=== PATIENT | male | born 1955 | race Caucasian/White ===

== ENCOUNTER 2016-09-04 09:07 | Emergency (ER) | payer MEDICARE ==
[2016-09-04] MEDS ORDERED: XYLOCAINE 1% HCL 20 ML MDV IJ ONE (09:25)
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
[2016-09-04] MEDS ORDERED: XYLOCAINE 1% HCL 20 ML MDV ONE (09:33)
[2016-09-04] MEDS ORDERED: Vancomycin 1GM/ Ns 250ML*** 250 ML IV ONE ×2 (09:45→09:50)
[2016-09-04 10:01] LABS: BASOPHIL % 0.1 % (0.0-0.4); Eosinophil % 1.8 % (0.00-5.0); Granulocytes % 68.7 % (36.0-66.0); Lymphocytes % 20.8 % (24.0-44.0); Mean Cell Volume 94.2 fl (78-100); Mean Corpuscular Hemoglobin 31.7 pg (26-32); Mean Platelet Volume 10.1 fl (6-9.5); Monocytes % 8.6 % (0.0-12.0); Platelet Count 260 K/mm3 (150-450); Red Blood Count 4.82 M/mm3 (4.1-5.6); White Blood Count 7.4 K/mm3 (4.0-10.5)
[2016-09-04 10:26] LABS: ANION GAP 14.4 MEQ/L (5-15); BLOOD UREA NITROGEN 16 mg/dL (9-20); CHLORIDE 105 mEq/L (98-107); Carbon Dioxide 24.9 mEq/L (21-32); Glucose 97 MG/DL (70-110); Potassium 3.8 mEq/L (3.5-5.1); SODIUM 141 mEq/L (136-145)
[2016-09-04 12:04] VITALS: BP 141/74; PULSE 69; O2SAT 98
== END 2016-09-04 12:03 | disposition home or self-care (01) ==
LOC: ED 09:07
DX: L02.414 Cutaneous abscess of left upper limb (principal); L03.011 Cellulitis of right finger; R11.2 Nausea with vomiting, unspecified; I10 Essential (primary) hypertension; J44.9 Chronic obstructive pulmonary disease, unspecified
CPT/HCPCS: 36000; 36415; 80048; 85025; 87040; 87070; 87077; 96365; 96366; 99283; J3370

== ENCOUNTER 2017-06-28 00:17 | Emergency (ER) | payer MEDICARE ==
[2017-06-28] MEDS ORDERED: BABY ASPIRIN 81 MG CHEW PO ONE (00:31)
[2017-06-28] MEDS ORDERED: Nitrostat 0.4 MG (ED) SL ONE ×2 (00:31→06:00)
[2017-06-28] MEDS ORDERED: SUBLIMAZE 100 MCG/2 ML IV ONE (00:34)
[2017-06-28] MEDS ORDERED: Phenergan 25 MG INJ IV ONE (00:34)
[2017-06-28] MEDS ORDERED: Nitrostat 0.4 MG Tablet SL PRN (00:39)
--- NOTE | 2017-06-28 00:40 | ERPHSYRPT ---
- History of Present Illness Time Seen by Provider: 06/28/17 00:20 Source: patient Exam Limitations: no limitations Patient Subjective Stated Complaint: cp starting about 1 hour [employer]ITE [employer] [id number] abdominal pain x 3 days with diarrhea. LBM today with loose stools. sweating and SOB Triage Nursing Assessment: alert and awake with c/o CP sob and abdominal pain. staes pain to left shoulder also. has been off pain meds. slightly diaphoretic and SOB on arrival. left side abdomninal pain on palpation. lungs clear bilateral. abdomen slightly soft with + bs x4 quads. denies swelling. Physician History: FOR THE PAST 3 WEEKS PT HAS HAD CONSTANT SHARP LEFT SIDED ABDOMINAL PAIN 10/10 IN SEVERITY; FOR THE PAST 3 DAYS DIARRHEA; FOR THE PAST 30 MINUTES CONSTANT SHARP LOWER MID CHEST PAIN 10/10 IN SEVERITY WITH DIAPHORESIS, SHORTNESS OF AIR AND LEFT SHOULDER PAIN. PT DENIES FEVER, NAUSEA, VOMITING, NUMBNESS, WEAKNESS. Allergies/Adverse Reactions: codeine [Codeine] Allergy (Verified 09/04/16 09:20) Hives pt states hives are quick onset Home Medications: Metoprolol Tartrate 50 mg [Lopressor 50 MG] 50 mg PO BID 09/03/12 [History ] Potassium Chloride 20 Meq [Klor-Con 20 MEQ] 20 meq PO DAILY 09/03/12 [History] Ramipril 10 mg PO BID 09/03/12 [History] Aspirin EC 325 mg [Ecotrin 325 MG] 325 mg PO DAILY 01/03/16 [History] Clopidogrel Bisulfate [Plavix] 75 mg PO DAILY 01/03/16 [History] Fluticasone/Salmeterol [Advair 250-50 Diskus] 1 puff IH BID 01/03/16 [History] Folic Acid/Mv,Iron,Min/Lutein [Certa Plus Tablet] 1 each PO DAILY 01/03/16 [ History] Gabapentin 300 mg PO BID 01/03/16 [History] Hydrocodone Bit/Acetaminophen [Hydrocodon-Acetaminophen 5-325] 1 each PO TID PRN 01/03/16 [History] Pantoprazole Sodium 40 mg PO DAILY 01/03/16 [History] Entecavir 0.5 mg PO AC 09/04/16 [History] Escitalopram Oxalate 10 mg PO DAILY 09/04/16 [History] Nitroglycerin 0.4 mg Tablet [Nitrostat 0.4 MG Tablet] 0.4 mg SL UD [History] Hx Tetanus, Diphtheria Vaccination/Date Given: Yes Hx Influenza Vaccination/Date Given: No Hx Pneumococcal Vaccination/Date Given: No (2014) Immunizations Up to Date: Yes - Review of Systems Constitutional: No Fever, No Weakness Respiratory: Dyspnea Cardiac: Chest Pain Abdominal/Gastrointestinal: Abdominal Pain, Diarrhea, No Nausea, No Vomiting Musculoskeletal: Joint Pain (LEFT SHOULDER PAIN) Neurological: No Sensory Changes All Other Systems: Reviewed and Negative - Past Medical History Pertinent Past Medical History: Yes Neurological History: No Pertinent History ENT History: No Pertinent History Cardiac History: Hypertension, Other Respiratory History: COPD Endocrine Medical History: No Pertinent History Musculoskeletal History: Arthritis, Fractures GI Medical History: Hepatitis History: No Pertinent History Psycho-Social History: Anxiety, Depression Male Reproductive Disorders: No Pertinent History Other Medical History: HAS PACEMAKER ON LEFT CHEST - Past Surgical History Past Surgical History: Yes Neuro Surgical History: No Pertinent History Cardiac: Pacemaker Respiratory: No Pertinent History Gastrointestinal: No Pertinent History Genitourinary: No Pertinent History Musculoskeletal: Joint Replacement Male Surgical History: No Pertinent History Other Surgical History: states pacemaker x 3 - Social History Smoking Status: Former smoker Exposure to second hand smoke: No Alcohol Use: None Drug Use: marijuana, methamphetamines Patient Lives Alone: No Significant Family History: heart disease, hypertension - Nursing Vital Signs Nursing Vital Signs: Initial Vital Signs Pulse Rate 78 06/28/17 00:21 Respiratory Rate 18 06/28/17 00:21 Blood Pressure 178/108 06/28/17 00:21 O2 Sat by Pulse Oximetry 97 06/28/17 00:21 Pain Scale Pain Intensity 0 - Physical Exam General Appearance: alert Eye Exam: PERRL/EOMI Ears, Nose, Throat Exam: pharynx normal, moist mucous membranes Neck Exam: normal inspection Respiratory Exam: lungs clear Cardiovascular Exam: normal heart sounds Gastrointestinal/Abdomen Exam: soft, normal bowel sounds, tenderness (MILD LEFT SIDED ABDOMINAL TENDERNESS) Back Exam: normal range of motion Extremity Exam: normal inspection, No pedal edema Neurologic Exam: alert, cooperative Skin Exam: warm, dry SpO2 Interpretation: normal SpO2: 95 Oxygen Delivery: Room Air - Course Nursing assessment & vital signs reviewed: Yes EKG Interpreted by Me: RATE (75), Sinus Rhythm, Left [place] Deviation, Left Bundle Branch Block Ordered Tests: Active Orders 24 hr Category Date Time Status Lens Blank Gauger STAT Care 06/28/17 00:32 Active Clean Catch Urine Specimen STAT Care 06/28/17 00:31 Active EKG-ER Only STAT Care 06/28/17 00:31 Active EKG-ER Only STAT Care 06/28/17 02:04 Active IV Insertion STAT Care 06/28/17 00:31 Active Oxygen-ED Only NASAL CANNULA 2 lpm Care 06/28/17 00:31 Active Pulse Oximetry (ED) STAT Care 06/28/17 00:31 Active ABDOMEN AND PELVIS W/0 CONTRAS [CT] Stat Exams 06/28/17 00:35 Taken CHEST 2 VIEWS (PA AND LAT) Stat Exams 06/28/17 00:32 Taken AMYLASE Stat Lab 06/28/17 00:45 Completed CBC W DIFF Stat Lab 06/28/17 00:45 Completed CMP Stat Lab 06/28/17 00:45 Completed LIPASE Stat Lab 06/28/17 00:45 Completed MAGNESIUM Stat Lab 06/28/17 00:45 Completed NT PRO BNP Stat Lab 06/28/17 00:45 Completed PROTIME WITH INR Stat Lab 06/28/17 00:45 Completed PTT Stat Lab 06/28/17 00:45 Completed TROPONIN Q3H Lab 06/28/17 00:45 Completed TROPONIN Q3H Lab 06/28/17 03:45 Ordered TROPONIN Q3H Lab 06/28/17 06:45 Ordered TROPONIN Q3H Lab 06/28/17 09:45 Ordered TROPONIN Q3H Lab 06/28/17 12:45 Ordered TROPONIN Stat Lab 06/28/17 02:20 Completed UA W/ MICROSCOPIC Stat Lab 06/28/17 00:45 Completed Medication Summary Generic Name Dose Route Start Last Admin Trade Name Freq PRN Reason Stop Dose Admin Sodium Chloride 1,000 mls @ 125 mls/hr 06/28/17 00:45 06/28/17 00:49 Sodium Chloride 0.9% 1000 Ml IV 07/28/17 00:44 125 mls/hr .Q8H PEPPER Administration Nitroglycerin 0.4 mg 06/28/17 00:39 06/28/17 00:42 Nitrostat 0.4 Mg Tablet SL 07/28/17 00:38 0.4 mg Q5MIN PRN MR X 3 PRN Administration CHEST PAIN Discontinued Medications Generic Name Dose Route Start Last Admin Trade Name Camila PRN Reason Stop Dose Admin Aspirin 324 mg 06/28/17 00:31 06/28/17 00:25 Baby Aspirin 81 Mg Chew PO 06/28/17 00:32 324 mg STAT ONE Administration Fentanyl Citrate 50 mcg 06/28/17 00:34 06/28/17 00:48 Sublimaze 100 Mcg/2 Ml IV 06/28/17 00:35 50 mcg STAT ONE Administration Fentanyl Citrate Confirm 06/28/17 00:45 Sublimaze 100 Mcg/2 Ml Administered 06/28/17 00:46 Dose 100 mcg .ROUTE .STK-MED ONE Nitroglycerin 0.4 mg 06/28/17 00:31 06/28/17 00:29 Nitrostat 0.4 Mg (Ed) SL 06/28/17 00:32 0.4 mg STAT ONE Administration Promethazine HCl 12.5 mg 06/28/17 00:34 06/28/17 00:48 Phenergan 25 Mg Inj IV 06/28/17 00:35 12.5 mg STAT ONE Administration Promethazine HCl Confirm 06/28/17 00:45 Phenergan 25 Mg Inj Administered 06/28/17 00:46 Dose 25 mg .ROUTE .STK-MED ONE Lab/Rad Data: Laboratory Result Diagrams 06/28/17 00:45 06/28/17 00:45 Laboratory Results 06/28/17 06/28/17 06/28/17 Range/Units 02:20 00:45 00:45 WBC (4.0-10.5) K/mm3 RBC (4.1-5.6) M/mm3 Hgb (12.5-18.0) gm/dl Hct (42-50) % MCV (78-100) fl MCH (26-32) pg MCHC (32-36) g/dl RDW (11.5-14.0) % Plt Count (150-450) K/mm3 MPV (6-9.5) fl Gran % (36.0-66.0) % Lymphocytes % (24.0-44.0) % Monocytes % (0.0-12.0) % Eosinophils % (0.00-5.0) % Basophils % (0.0-0.4) % Basophils # (0-0.4) INR (0.8-3.0) APTT (24.1-36.1) SECONDS Sodium (136-145) mEq/L Potassium (3.5-5.1) mEq/L Chloride (98-107) mEq/L Carbon Dioxide (21-32) mEq/L Anion Gap (5-15) MEQ/L BUN (9-20) mg/dL Creatinine (0.55-1.30) mg/dl Estimated GFR ML/MIN Glucose (70-110) MG/DL Calcium (8.5-10.1) mg/dL Magnesium (1.8-2.4) mg/dL Total Bilirubin (0.2-1.0) mg/dL AST (15-37) U/L ALT (12-78) U/L Alkaline Phosphatase (46-116) U/L Troponin I 0.078 H* 0.040 (0.000-0.056) ng/ml NT-Pro-B Natriuret Pep (0-125) pg/ml Serum Total Protein (6.4-8.2) gm/dL Albumin (3.4-5.0) g/dL Amylase (25-115) U/L Lipase (73-393) U/L Ur Collection Type CLEAN CATCH Urine Color YELLOW (YELLOW) Urine Appearance CLEAR (CLEAR) Urine pH 6.5 (5-6) Ur Specific [place] 1.015 (1.005-1.025) Urine Protein TRACE (Negative) Urine Ketones NEGATIVE (NEGATIVE) Urine Blood NEGATIVE (0-5) Scout/ul Urine Nitrite NEGATIVE (NEGATIVE) Urine Bilirubin NEGATIVE (NEGATIVE) Urine Urobilinogen NORMAL (0-1) mg/dL Ur Leukocyte Esterase NEGATIVE (NEGATIVE) Ur Epithelial Cells RARE (FEW) /HPF Urine Culture Reflexed NO (NO) Urine Glucose NEGATIVE (NEGATIVE) mg/dL Specimen Received 06/28/17 0045 06/28/17 06/28/17 06/28/17 Range/Units 00:45 00:45 00:45 WBC 9.4 (4.0-10.5) K/mm3 RBC 4.66 (4.1-5.6) M/mm3 Hgb 15.1 (12.5-18.0) gm/dl Hct 43.8 (42-50) % MCV 94.0 (78-100) fl MCH 32.4 H (26-32) pg MCHC 34.5 (32-36) g/dl RDW 13.2 (11.5-14.0) % Plt Count 261 (150-450) K/mm3 MPV 10.8 H (6-9.5) fl Gran % 47.3 (36.0-66.0) % Lymphocytes % 33.0 (24.0-44.0) % Monocytes % 15.2 H (0.0-12.0) % Eosinophils % 4.2 (0.00-5.0) % Basophils % 0.3 (0.0-0.4) % Basophils # 0.03 (0-0.4) INR 1.05 (0.8-3.0) APTT 33.5 (24.1-36.1) SECONDS Sodium 144 (136-145) mEq/L Potassium 3.6 (3.5-5.1) mEq/L Chloride 106 (98-107) mEq/L Carbon Dioxide 24.5 (21-32) mEq/L Anion Gap 16.7 H (5-15) MEQ/L BUN 16 (9-20) mg/dL Creatinine 0.96 (0.55-1.30) mg/dl Estimated GFR > 60 ML/MIN Glucose 98 (70-110) MG/DL Calcium 8.8 (8.5-10.1) mg/dL Magnesium 1.9 (1.8-2.4) mg/dL Total Bilirubin 0.40 (0.2-1.0) mg/dL AST 35 (15-37) U/L ALT 58 (12-78) U/L Alkaline Phosphatase 92 (46-116) U/L Troponin I (0.000-0.056) ng/ml NT-Pro-B Natriuret Pep 2390 H (0-125) pg/ml Serum Total Protein 8.4 H (6.4-8.2) gm/dL Albumin 4.1 (3.4-5.0) g/dL Amylase 47 (25-115) U/L Lipase 110 (73-393) U/L Ur Collection Type Urine Color (YELLOW) Urine Appearance (CLEAR) Urine pH (5-6) Ur Specific [place] (1.005-1.025) Urine Protein (Negative) Urine Ketones (NEGATIVE) Urine Blood (0-5) Scout/ul Urine Nitrite (NEGATIVE) Urine Bilirubin (NEGATIVE) Urine Urobilinogen (0-1) mg/dL Ur Leukocyte Esterase (NEGATIVE) Ur Epithelial Cells (FEW) /HPF Urine Culture Reflexed (NO) Urine Glucose (NEGATIVE) mg/dL Specimen Received - Progress Discussed with Dr.: Other (SPOKE WITH DR RAMOS(ER DR)([id number]) WHO ACCEPTED PT FOR TRANSFER TO [facility].) - Departure Time of Disposition: 03:25 Departure Disposition: Home Clinical Impression: CHEST PAIN, ELEVATED TROPONIN I, ABDOMINAL PAIN, HTN, COPD, ARTHRITIS, PACEMAKER, HEPATITIS, ANXIETY, DEPRESSION Condition: Stable Critical Care Time: Yes Critical Care Time(excluding separately billable procedures): 30-74 minutes Referrals: RENETTA CAMARGO [Primary Care Provider] -
[2017-06-28] MEDS ORDERED: SUBLIMAZE 100 MCG/2 ML ONE (00:45)
[2017-06-28] MEDS ORDERED: Sodium Chloride 0.9% 1000 ML 1,000 ML IV SCH (00:45)
[2017-06-28] MEDS ORDERED: Phenergan 25 MG INJ ONE (00:45)
[2017-06-28] MEDS ORDERED: Sodium Chloride 0.9% 1000 ML 1,000 ML ONE (00:45)
[2017-06-28 00:55] LABS: BASOPHIL % 0.3 % (0.0-0.4); Eosinophil % 4.2 % (0.00-5.0); Granulocytes % 47.3 % (36.0-66.0); Mean Corpuscular Hemoglobin 32.4 pg (26-32); Mean Platelet Volume 10.8 fl (6-9.5); Monocytes % 15.2 % (0.0-12.0); Platelet Count 261 K/mm3 (150-450); Red Blood Count 4.66 M/mm3 (4.1-5.6); Red Cell Distribution Width 13.2 % (11.5-14.0); White Blood Count 9.4 K/mm3 (4.0-10.5)
[2017-06-28 01:05] LABS: INR 1.05 (0.8-3.0); PROTIME 11.7 SECONDS (8.83-12.87)
[2017-06-28 01:08] LABS: PTT 33.5 SECONDS (24.1-36.1)
[2017-06-28 01:09] LABS: Bilirubin NEGATIVE (NEGATIVE); Blood NEGATIVE Ery/ul (0-5); COMPLETE URINE MICROSCOPIC? YES; Collection Type CLEAN CATCH; Glucose NEGATIVE (NEGATIVE); Leukocyte Esterase NEGATIVE (NEGATIVE)
[2017-06-28 01:10] LABS: ADD URINE CULTURE? NO (NO); Epithelial Cells RARE /HPF (FEW)
[2017-06-28 01:22] LABS: ALBUMIN 4.1 g/dL (3.4-5.0); ALKALINE PHOSPHATASE 92 U/L (46-116); ANION GAP 16.7 MEQ/L (5-15); BLOOD UREA NITROGEN 16 mg/dL (9-20); CHLORIDE 106 mEq/L (98-107); Carbon Dioxide 24.5 mEq/L (21-32); Glucose 98 MG/DL (70-110); LIPASE 110 U/L (73-393); MAGNESIUM 1.9 mg/dL (1.8-2.4); Potassium 3.6 mEq/L (3.5-5.1); SGOT/AST 35 U/L (15-37); SGPT/ALT 58 U/L (12-78); SODIUM 144 mEq/L (136-145); Total Protein 8.4 gm/dL (6.4-8.2)
[2017-06-28] MEDS ORDERED: Heparin 5000 UNITS/0.5 ML (HIGH RISK MED) ONE (03:28)
[2017-06-28] MEDS ORDERED: Heparin 5000 UNITS/0.5 ML (HIGH RISK MED) IV ONE (03:28)
[2017-06-28] MEDS ORDERED: Heparin 25,000 units/D5W 250ML PREMIX 25,000 UNITS/250 ML BAG IV ONE (03:28)
[2017-06-28] MEDS ORDERED: Heparin 25,000 units/D5W 250ML PREMIX 25,000 UNITS/250 ML BAG IV SCH (03:30)
[2017-06-28 04:10] VITALS: BP 110/69; PULSE 60; O2SAT 97
[2017-06-28] MEDS ORDERED: BABY ASPIRIN 81 MG CHEW ONE (06:00)
--- NOTE | 2017-06-28 08:27 | XRAY ---
Indication: Left chest and left upper quadrant pain for 3 weeks. Multiple contiguous axial images obtained through the abdomen and pelvis without contrast as ordered. Comparison: None Lung bases demonstrates a few rare micronodules probably granulomatous in in this demographic. No infiltrate, consolidation, or effusion. Heart is not enlarged. Stomach is distended with food. Noncontrasted stomach and bowel loops appear nonobstructed. Mild diffuse scattered colonic fecal debris throughout and mild sigmoid diverticulosis. Normal appendix. No free fluid/air. Gallbladder partially contracted without gallstones. 1 cm left renal cortical cyst. Remaining liver, gallbladder, pancreas, spleen, adrenal glands, kidneys, ureters, and bladder appear unremarkable for noncontrast exam. Slightly enlarged prostate gland impresses on the base of the bladder. Osseous structures intact with mild degenerative changes throughout the spine. Small fatty bilateral inguinal hernias. Impression: 1. Fecal stasis without obstruction and sigmoid diverticulosis. 2. Incidental left renal cyst, enlarged prostate gland, and fatty bilateral inguinal hernias. 3. No acute abdominal/pelvic abnormalities on this noncontrast exam. Comment: Preliminary interpretation was made by [facility]. No critical discrepancy. CTDI 27.02
--- NOTE | 2017-06-28 08:29 | XRAY ---
Indication: Chest pain and short of breath. Comparison: January 03, 2016. PA/lateral chest remains clear. Heart is not enlarged again with a left-sided AICD. Bony thorax intact. No new/acute findings.
== END 2017-06-28 04:10 | disposition short-term general hospital (02) ==
LOC: ED 00:17
DX: R07.89 Other chest pain (principal); R79.89 Other specified abnormal findings of blood chemistry; R10.9 Unspecified abdominal pain; I10 Essential (primary) hypertension; J44.9 Chronic obstructive pulmonary disease, unspecified; M19.90 Unspecified osteoarthritis, unspecified site; Z95.0 Presence of cardiac pacemaker; K75.9 Inflammatory liver disease, unspecified; F41.9 Anxiety disorder, unspecified; F32.9 Major depressive disorder, single episode, unspecified; Z79.899 Other long term (current) drug therapy
CPT/HCPCS: 36000; 36415; 71020; 74176; 80053; 81000; 82150; 83690; 83735; 83880; 84484; 85025; 85610; 85730; 93005; 93041; 96360; 96361; 96365; 96374; 96375; 99285; J1644; J2550; J3010; A9270-GY

== ENCOUNTER 2017-08-19 05:45 | Emergency (ER) | payer MEDICARE ==
[2017-08-19] MEDS ORDERED: BABY ASPIRIN 81 MG CHEW PO ONE (05:53)
[2017-08-19] MEDS ORDERED: Nitrostat 0.4 MG (ED) SL ONE ×2 (05:53→06:07)
[2017-08-19] MEDS ORDERED: Cardizem IV 50 MG/10 ML IV ONE ×3 (05:53→06:37)
[2017-08-19] MEDS ORDERED: CARDIZEM DRIP 100 MG/100 ML D5W 100 ML IV ONE (05:56)
--- NOTE | 2017-08-19 05:57 | ERPHSYRPT ---
- History of Present Illness Time Seen by Provider: 08/19/17 05:45 Source: patient Exam Limitations: no limitations Patient Subjective Stated Complaint: c/p chest pain began around 30 min ago, vomiting per patient Triage Nursing Assessment: c/o chest pain midsternal Physician History: ABOUT 5 HOURS AGO PT VOMITED X2 WITHOUT BLOOD; ABOUT 20 MINUTES AGO PT DEVELOPED MID CHEST TIGHTNESS, FRONTAL HEADACHE AND A LEFT EARACHE. Allergies/Adverse Reactions: codeine [Codeine] Allergy (Verified 09/04/16 09:20) Hives pt states hives are quick onset Home Medications: Metoprolol Tartrate 50 mg [Lopressor 50 MG] 50 mg PO BID 09/03/12 [History ] Potassium Chloride 20 Meq [Klor-Con 20 MEQ] 20 meq PO DAILY 09/03/12 [History] Ramipril 10 mg PO BID 09/03/12 [History] Aspirin EC 325 mg [Ecotrin 325 MG] 325 mg PO DAILY 01/03/16 [History] Clopidogrel Bisulfate [Plavix] 75 mg PO DAILY 01/03/16 [History] Fluticasone/Salmeterol [Advair 250-50 Diskus] 1 puff IH BID 01/03/16 [History] Folic Acid/Mv,Iron,Min/Lutein [Certa Plus Tablet] 1 each PO DAILY 01/03/16 [ History] Gabapentin 300 mg PO BID 01/03/16 [History] Hydrocodone Bit/Acetaminophen [Hydrocodon-Acetaminophen 5-325] 1 each PO TID PRN 01/03/16 [History] Pantoprazole Sodium 40 mg PO DAILY 01/03/16 [History] Entecavir 0.5 mg PO AC 09/04/16 [History] Escitalopram Oxalate 10 mg PO DAILY 09/04/16 [History] Nitroglycerin 0.4 mg Tablet [Nitrostat 0.4 MG Tablet] 0.4 mg SL UD [History] Hx Tetanus, Diphtheria Vaccination/Date Given: Yes Hx Influenza Vaccination/Date Given: No Hx Pneumococcal Vaccination/Date Given: No (2014) Immunizations Up to Date: Yes - Review of Systems Constitutional: No Fever Ears, Nose, & Throat: Ear Pain (LEFT) Respiratory: No Cough Cardiac: Other (CHEST TIGHTNESS) Abdominal/Gastrointestinal: Vomiting, No Abdominal Pain Neurological: Headache Endocrine: No Excessive Sweating All Other Systems: Reviewed and Negative - Past Medical History Pertinent Past Medical History: Yes Neurological History: No Pertinent History ENT History: No Pertinent History Cardiac History: Hypertension, Other Respiratory History: COPD Endocrine Medical History: No Pertinent History Musculoskeletal History: Arthritis, Fractures GI Medical History: Hepatitis History: No Pertinent History Psycho-Social History: Anxiety, Depression Male Reproductive Disorders: No Pertinent History Other Medical History: HAS PACEMAKER ON LEFT CHEST - Past Surgical History Past Surgical History: Yes Neuro Surgical History: No Pertinent History Cardiac: Pacemaker Respiratory: No Pertinent History Gastrointestinal: No Pertinent History Genitourinary: No Pertinent History Musculoskeletal: Joint Replacement Male Surgical History: No Pertinent History Other Surgical History: states pacemaker x 3 - Social History Smoking Status: Former smoker Exposure to second hand smoke: No Alcohol Use: None Drug Use: none Patient Lives Alone: No Significant Family History: heart disease, hypertension - Nursing Vital Signs Nursing Vital Signs: Initial Vital Signs Temperature 98.0 F 08/19/17 05:47 Pulse Rate 152 H 08/19/17 05:47 Respiratory Rate 20 08/19/17 05:47 Blood Pressure 159/99 08/19/17 05:47 O2 Sat by Pulse Oximetry 95 08/19/17 05:47 Pain Scale Pain Intensity 4 - Physical Exam General Appearance: alert Eye Exam: PERRL/EOMI Ears, Nose, Throat Exam: TMs normal, moist mucous membranes Neck Exam: normal inspection Respiratory Exam: lungs clear Cardiovascular Exam: murmur (2/6 SYSTOLIC MURMUR), tachycardia, irregular Gastrointestinal/Abdomen Exam: soft, normal bowel sounds Back Exam: normal range of motion Extremity Exam: normal inspection Neurologic Exam: alert, cooperative Skin Exam: warm, dry SpO2 Interpretation: normal SpO2: 95 Oxygen Delivery: Room Air - Course Nursing assessment & vital signs reviewed: Yes EKG Interpreted by Me: RATE (149), A-fib, Left [place] Deviation, Non-specific ST Changes - Radiology Exams Chest X-ray Interpretation: Interpreted by me, No Pneumonia Ordered Tests: Active Orders 24 hr Category Date Time Status Vegetable Farmer STAT Care 08/19/17 05:54 Active EKG-ER Only STAT Care 08/19/17 05:53 Active IV Insertion STAT Care 08/19/17 05:53 Active Oxygen-ED Only NASAL CANNULA 2 lpm Care 08/19/17 05:53 Active Pulse Oximetry (ED) STAT Care 08/19/17 05:53 Active CHEST 2 VIEWS (PA AND LAT) Stat Exams 08/19/17 05:54 Taken AMYLASE Stat Lab 08/19/17 06:00 Completed CBC W DIFF Stat Lab 08/19/17 06:00 Completed CMP Stat Lab 08/19/17 06:00 Completed LIPASE Stat Lab 08/19/17 06:00 Completed MAGNESIUM Stat Lab 08/19/17 06:00 Completed NT PRO BNP Stat Lab 08/19/17 06:00 Completed PROTIME WITH INR Stat Lab 08/19/17 06:00 Completed PTT Stat Lab 08/19/17 06:00 Completed TROPONIN Q3H Lab 08/19/17 06:00 Completed TROPONIN Q3H Lab 08/19/17 09:00 Ordered TROPONIN Q3H Lab 08/19/17 12:00 Ordered TROPONIN Q3H Lab 08/19/17 15:00 Ordered TROPONIN Q3H Lab 08/19/17 18:00 Ordered UA W/RFX UR CULTURE Stat Lab 08/19/17 06:15 Ordered Urine Triage Profile Stat Lab 08/19/17 06:15 Ordered Medication Summary Generic Name Dose Route Start Last Admin Trade Name Freq PRN Reason Stop Dose Admin Diltiazem HCl 100 mls @ 5 mls/hr 08/19/17 05:53 08/19/17 06:43 Cardizem Drip 100 Mg/100 Ml D5w IV 09/18/17 05:52 10 mg/hr .Q20H PRN 10 mls/hr HEART RATE/ A-FIB Administration Protocol 5 MG/HR Sodium Chloride 1,000 mls @ 100 mls/hr 08/19/17 06:00 08/19/17 06:07 Sodium Chloride 0.9% 1000 Ml IV 09/18/17 05:59 100 mls/hr .Q10H PEPPER Administration Discontinued Medications Generic Name Dose Route Start Last Admin Trade Name Freq PRN Reason Stop Dose Admin Aspirin 324 mg 08/19/17 05:53 08/19/17 06:07 Baby Aspirin 81 Mg Chew PO 08/19/17 05:54 324 mg STAT ONE Administration Aspirin Confirm 08/19/17 06:06 Baby Aspirin 81 Mg Chew Administered 08/19/17 06:07 Dose 324 mg .ROUTE .STK-MED ONE Diltiazem HCl 10 mg 08/19/17 05:53 08/19/17 06:01 Cardizem Iv 50 Mg/10 Ml IV 08/19/17 05:54 10 mg STAT ONE Administration Diltiazem HCl Confirm 08/19/17 05:59 Cardizem Iv 50 Mg/10 Ml Administered 08/19/17 06:00 Dose 50 mg IV .STK-MED ONE Diltiazem HCl 20 mg 08/19/17 06:37 08/19/17 06:42 Cardizem Iv 50 Mg/10 Ml IV 08/19/17 06:38 20 mg STAT ONE Administration Nitroglycerin 0.4 mg 08/19/17 05:53 08/19/17 06:10 Nitrostat 0.4 Mg (Ed) SL 08/19/17 05:54 0.4 mg STAT ONE Administration Nitroglycerin Confirm 08/19/17 06:07 Nitrostat 0.4 Mg (Ed) Administered 08/19/17 06:08 Dose 0.4 mg SL .STK-MED ONE Lab/Rad Data: Laboratory Result Diagrams 08/19/17 06:00 08/19/17 06:00 Laboratory Results 08/19/17 08/19/17 08/19/17 Range/Units 06:00 06:00 06:00 WBC (4.0-10.5) K/mm3 RBC (4.1-5.6) M/mm3 Hgb (12.5-18.0) gm/dl Hct (42-50) % MCV (78-100) fl MCH (26-32) pg MCHC (32-36) g/dl RDW (11.5-14.0) % Plt Count (150-450) K/mm3 MPV (6-9.5) fl Gran % (36.0-66.0) % Lymphocytes % (24.0-44.0) % Monocytes % (0.0-12.0) % Eosinophils % (0.00-5.0) % Basophils % (0.0-0.4) % Basophils # (0-0.4) INR 1.08 (0.8-3.0) APTT 35.1 (24.1-36.1) SECONDS Sodium 143 (136-145) mEq/L Potassium 3.5 (3.5-5.1) mEq/L Chloride 105 (98-107) mEq/L Carbon Dioxide 27.5 (21-32) mEq/L Anion Gap 14.0 (5-15) MEQ/L BUN 19 (9-20) mg/dL Creatinine 0.97 (0.55-1.30) mg/dl Estimated GFR > 60 ML/MIN Glucose 130 H (70-110) MG/DL Calcium 8.9 (8.5-10.1) mg/dL Magnesium 1.9 (1.8-2.4) mg/dL Total Bilirubin 0.70 (0.2-1.0) mg/dL AST 42 H (15-37) U/L ALT 55 (12-78) U/L Alkaline Phosphatase 86 (46-116) U/L Troponin I 0.052 (0.000-0.056) ng/ml NT-Pro-B Natriuret Pep 1390 H (0-125) pg/ml Serum Total Protein 7.9 (6.4-8.2) gm/dL Albumin 3.8 (3.4-5.0) g/dL Amylase 43 (25-115) U/L Lipase 109 (73-393) U/L 08/19/17 Range/Units 06:00 WBC 6.8 (4.0-10.5) K/mm3 RBC 4.38 (4.1-5.6) M/mm3 Hgb 14.0 (12.5-18.0) gm/dl Hct 41.8 L (42-50) % MCV 95.4 (78-100) fl MCH 32.0 (26-32) pg MCHC 33.5 (32-36) g/dl RDW 13.2 (11.5-14.0) % Plt Count 217 (150-450) K/mm3 MPV 10.7 H (6-9.5) fl Gran % 44.5 (36.0-66.0) % Lymphocytes % 33.8 (24.0-44.0) % Monocytes % 15.2 H (0.0-12.0) % Eosinophils % 6.2 H (0.00-5.0) % Basophils % 0.3 (0.0-0.4) % Basophils # 0.02 (0-0.4) INR (0.8-3.0) APTT (24.1-36.1) SECONDS Sodium (136-145) mEq/L Potassium (3.5-5.1) mEq/L Chloride (98-107) mEq/L Carbon Dioxide (21-32) mEq/L Anion Gap (5-15) MEQ/L BUN (9-20) mg/dL Creatinine (0.55-1.30) mg/dl Estimated GFR ML/MIN Glucose (70-110) MG/DL Calcium (8.5-10.1) mg/dL Magnesium (1.8-2.4) mg/dL Total Bilirubin (0.2-1.0) mg/dL AST (15-37) U/L ALT (12-78) U/L Alkaline Phosphatase (46-116) U/L Troponin I (0.000-0.056) ng/ml NT-Pro-B Natriuret Pep (0-125) pg/ml Serum Total Protein (6.4-8.2) gm/dL Albumin (3.4-5.0) g/dL Amylase (25-115) U/L Lipase (73-393) U/L - Progress Discussed with : Other (SPOKE WITH DR STEWART([id number]) WHO ACCEPTED PT FOR TRANSFER TO [facility].) - Departure Time of Disposition: 07:19 Departure Disposition: Transfer ([facility]) Clinical Impression: A. FIB WITH RVR, ELEVATING TROPONIN I, COPD, HTN, ARTHRITIS, HEPATITIS, ANXIETY , DEPRESSION Condition: Stable Critical Care Time: No Referrals: RENETTA CAMARGO [Primary Care Provider] -
[2017-08-19] MEDS ORDERED: Sodium Chloride 0.9% 1000 ML 1,000 ML IV SCH (06:00)
[2017-08-19] MEDS: CARDIZEM DRIP 100 MG/100 ML D5W 100 ML IV PRN ×2 (06:01→06:43)
[2017-08-19] MEDS ORDERED: BABY ASPIRIN 81 MG CHEW ONE (06:06)
[2017-08-19] MEDS ORDERED: Sodium Chloride 0.9% 1000 ML 1,000 ML ONE (06:07)
[2017-08-19 06:13] LABS: BASOPHIL % 0.3 % (0.0-0.4); Basophil (Absolute #) 0.02 (0-0.4); Eosinophil % 6.2 % (0.00-5.0); Eosinophil (Absolute #) 0.42 (0-0.5); Granulocyte Absolute (ANC) 3.02 (1.4-6.9); Granulocytes % 44.5 % (36.0-66.0); Hematocrit 41.8 % (42-50); Lymphocyte (Absolute #) 2.29 (1.0-4.6); Lymphocytes % 33.8 % (24.0-44.0); Mean Cell Volume 95.4 fl (78-100); Mean Corpuscular Hgb Concent. 33.5 g/dl (32-36); Mean Platelet Volume 10.7 fl (6-9.5); Monocyte (Absolute #) 1.03 (0.0-1.3); Monocytes % 15.2 % (0.0-12.0); Platelet Count 217 K/mm3 (150-450); Red Blood Count 4.38 M/mm3 (4.1-5.6); Red Cell Distribution Width 13.2 % (11.5-14.0); White Blood Count 6.8 K/mm3 (4.0-10.5)
[2017-08-19 06:26] LABS: INR 1.08 (0.8-3.0)
[2017-08-19 06:29] LABS: PTT 35.1 SECONDS (24.1-36.1)
[2017-08-19 06:42] LABS: ALBUMIN 3.8 g/dL (3.4-5.0); ALKALINE PHOSPHATASE 86 U/L (46-116); AMYLASE 43 U/L (25-115); BLOOD UREA NITROGEN 19 mg/dL (9-20); CHLORIDE 105 mEq/L (98-107); Calcium 8.9 mg/dL (8.5-10.1); Carbon Dioxide 27.5 mEq/L (21-32); Creatinine 1 0.97 mg/dl (0.55-1.30); EST GLOMERULAR FILTRATION RATE > 60 ML/MIN; Glucose 130 MG/DL (70-110); LIPASE 109 U/L (73-393); MAGNESIUM 1.9 mg/dL (1.8-2.4); NT PRO BNP 1390 pg/ml (0-125); Potassium 3.5 mEq/L (3.5-5.1); SGOT/AST 42 U/L (15-37); SGPT/ALT 55 U/L (12-78); SODIUM 143 mEq/L (136-145); Total Protein 7.9 gm/dL (6.4-8.2)
[2017-08-19 07:29] LABS: Appearance CLEAR (CLEAR); Bilirubin NEGATIVE (NEGATIVE); Blood NEGATIVE Ery/ul (0-5); Glucose NEGATIVE (NEGATIVE); Ketones NEGATIVE (NEGATIVE); Leukocyte Esterase NEGATIVE (NEGATIVE); Nitrite NEGATIVE (NEGATIVE); Protein,Urine Dip NEGATIVE (Negative); Specific Gravity 1.015 (1.005-1.025); Urobilinogen NORMAL mg/dL (0-1)
[2017-08-19 07:37] VITALS: O2SAT 98
[2017-08-19 07:55] LABS: Amphetamine,Urine NEG. (NEGATIVE); Barbiturate,Urine NEG. (NEGATIVE); Benzodiazepine,Urine NEG. (NEGATIVE); Cocaine,Urine NEG. (NEGATIVE); Methadone,Urine NEG. (NEGATIVE); Opiate,Urine NEG. (NEGATIVE); PCP,Urine NEG. (NEGATIVE); THC,Urine NEG. (NEGATIVE)
[2017-08-19 08:52] VITALS: BP 132/65; PULSE 118
--- NOTE | 2017-08-19 09:42 | XRAY ---
Indication: Chest tightness. Comparison: June 28, 2017. PA/lateral chest again hyperinflated and clear. Heart is not enlarged with stable left-sided AICD. No new/acute findings.
== END 2017-08-19 09:06 | disposition short-term general hospital (02) ==
LOC: ED 05:45
DX: I48.91 Unspecified atrial fibrillation (principal); R77.8 Other specified abnormalities of plasma proteins; R51 Headache; J44.9 Chronic obstructive pulmonary disease, unspecified; H92.02 Otalgia, left ear; I10 Essential (primary) hypertension; M19.90 Unspecified osteoarthritis, unspecified site; K75.9 Inflammatory liver disease, unspecified; F41.8 Other specified anxiety disorders; Z79.899 Other long term (current) drug therapy
CPT/HCPCS: 36000; 36415; 71046; 80053; 80307; 81002; 82150; 83690; 83735; 83880; 84484; 85025; 85610; 85730; 93005; 93041; 96360; 96361; 96365; 96366; 96374; 96376; 99285; A9270-GY

== ENCOUNTER 2017-08-24 11:50 | Inpatient (IN) | payer MEDICARE ==
[2017-08-24] MEDS ORDERED: Cardizem IV 50 MG/10 ML IV ONE ×4 (11:59→12:56)
[2017-08-24] MEDS ORDERED: Adenocard IV 6 MG/2 ML IV ONE ×3 (12:00→12:09)
[2017-08-24] MEDS ORDERED: Sodium Chloride 0.9% 1000 ML 1,000 ML IV STA (12:09)
[2017-08-24] MEDS ORDERED: CARDIZEM DRIP 100 MG/100 ML D5W 100 ML IV PRN (12:09)
[2017-08-24] MEDS ORDERED: SODIUM CHLORIDE 0.9% IV SCH (12:15)
[2017-08-24] MEDS ORDERED: CARDIZEM IV SCH (12:15)
[2017-08-24 12:22] LABS: BASOPHIL % 0.1 % (0.0-0.4); Basophil (Absolute #) 0.01 (0-0.4); Eosinophil % 4.3 % (0.00-5.0); Eosinophil (Absolute #) 0.45 (0-0.5); Granulocyte Absolute (ANC) 6.34 (1.4-6.9); Granulocytes % 61.3 % (36.0-66.0); Hematocrit 41.6 % (42-50); Hemoglobin 14.1 gm/dl (12.5-18.0); Lymphocyte (Absolute #) 2.22 (1.0-4.6); Lymphocytes % 21.4 % (24.0-44.0); Mean Cell Volume 94.8 fl (78-100); Mean Corpuscular Hemoglobin 32.1 pg (26-32); Mean Corpuscular Hgb Concent. 33.9 g/dl (32-36); Mean Platelet Volume 10.9 fl (6-9.5); Monocyte (Absolute #) 1.34 (0.0-1.3); Monocytes % 12.9 % (0.0-12.0); Platelet Count 225 K/mm3 (150-450); Red Blood Count 4.39 M/mm3 (4.1-5.6); Red Cell Distribution Width 12.8 % (11.5-14.0); White Blood Count 10.4 K/mm3 (4.0-10.5)
[2017-08-24] MEDS ORDERED: TRANDATE 20 MG/5 ML SYRINGE IV ONE (12:27)
[2017-08-24 12:33] LABS: INR 1.36 (0.8-3.0)
[2017-08-24 12:34] LABS: D-DIMER QUANTITATION 492.66 ng/mL (0-500)
--- NOTE | 2017-08-24 12:38 | ERPHSYRPT ---
- History of Present Illness Time Seen by Provider: 08/24/17 12:00 Source: patient Exam Limitations: no limitations Patient Subjective Stated Complaint: PT ARRIVED PER PRIVATE VEHICLE STATES HE BEGAN HAVING HEART PALPITATIONS AROUND 1130 THIS MORNING. STATES HE HAS CHEST PRESSURE. Triage Nursing Assessment: PT PINK, WARM SKIN MOIST. RADIAL PUSES NORMAL, IRREGULAR. PT BREATHING WNL. 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 Patient came to the emergency room. Patient came to the emergency room at around 11:50 AM and his symptoms started around 11 :15 AM. In the emergency room. Patient is alert, awake, oriented to time, place and person answer all the questions complaining of some pain on the side of the neck and palpitation. Patient was immediately given Adenocard 6 mg followed by 12 mg, which did not bring his heart rate down so 10 mg of Cardizem IV steroid was given an which did bring patient heart rate down to around 120-130 which was around 180 - 190 before. Patient chest pain did improve. Timing/Duration: today Activities at Onset: none Quality: sharpness, stabbing Location: substernal Chest Pain Radiation: jaw Severity of Pain-Max: moderate Severity of Pain-Current: moderate Modifying Factors: Improves With: nothing Nitro Today/Relief: no nitro taken today Aspirin Treatment Today: 81 mg x 1 Associated Symptoms: chest pain, other (palpitations) Prior Chest Pain/Cardiac Workup: recently seen/treated Allergies/Adverse Reactions: codeine [Codeine] Allergy (Verified 08/24/17 12:11) Hives pt states hives are quick onset Home Medications: Clopidogrel Bisulfate [Clopidogrel] 75 mg PO DAILY 08/24/17 [History] Gabapentin [Gabapentin] 300 mg PO TID 08/24/17 [History] Hydrocodone Bit/Acetaminophen [Hydrocodon-Acetaminophen 5-325] 1 each PO Q4- 6HPRN PRN 08/24/17 [History] Ipratropium/Albuterol Sulfate [Combivent Inhaler] 14.7 gm IH BIDPRN PRN [History] Metoprolol Succinate 50 mg [Toprol Xl 50 MG] 50 mg PO DAILY 08/24/17 [ History] Nitroglycerin 0.4 mg (Ed) [Nitrostat 0.4 MG (ED)] 0.4 mg SL UD 08/24/17 [ History] Pantoprazole Sodium 40 mg PO DAILY 08/24/17 [History] Potassium Chloride 20 Meq [Klor-Con 20 MEQ] 20 meq PO DAILY 08/24/17 [History] Pravastatin Sodium [Pravachol] 20 mg PO DAILY 08/24/17 [History] Ramipril [Altace] 2.5 mg PO DAILY 08/24/17 [History] Rivaroxaban [Xarelto] 20 mg PO DAILY 08/24/17 [History] Hx Tetanus, Diphtheria Vaccination/Date Given: Yes (UNKNOWN) Hx Influenza Vaccination/Date Given: Yes Hx Pneumococcal Vaccination/Date Given: Yes Immunizations Up to Date: Yes - Review of Systems Constitutional: No Fever, No Chills Eyes: No Symptoms Ears, Nose, & Throat: No Symptoms Respiratory: Cough, No Dyspnea Cardiac: Chest Pain, Palpitations, No Edema, No Syncope Abdominal/Gastrointestinal: No Abdominal Pain, No Nausea, No Vomiting, No Diarrhea Genitourinary Symptoms: No Dysuria Musculoskeletal: No Back Pain, No Neck Pain Skin: No Rash Neurological: No Dizziness, No Focal Weakness, No Sensory Changes Psychological: No Symptoms Endocrine: No Symptoms All Other Systems: Reviewed and Negative - Past Medical History Pertinent Past Medical History: Yes Neurological History: No Pertinent History ENT History: No Pertinent History Cardiac History: Arrhythmia, Hypertension, Other Respiratory History: COPD Endocrine Medical History: No Pertinent History Musculoskeletal History: Arthritis, Fractures GI Medical History: Hepatitis History: No Pertinent History Psycho-Social History: Anxiety, Depression Male Reproductive Disorders: No Pertinent History Other Medical History: HAS PACEMAKER ON LEFT CHEST - Past Surgical History Past Surgical History: Yes Neuro Surgical History: No Pertinent History Cardiac: Pacemaker Respiratory: No Pertinent History Gastrointestinal: No Pertinent History Genitourinary: No Pertinent History Musculoskeletal: Joint Replacement Male Surgical History: No Pertinent History Other Surgical History: states pacemaker x 3 - Social History Smoking Status: Never smoker Exposure to second hand smoke: No Alcohol Use: None Drug Use: none Patient Lives Alone: No Significant Family History: heart disease, hypertension - Nursing Vital Signs Nursing Vital Signs: Initial Vital Signs Temperature 97.9 F 08/24/17 11:51 Pulse Rate 170 H 08/24/17 11:51 Respiratory Rate 24 08/24/17 11:51 Blood Pressure 163/114 08/24/17 11:51 O2 Sat by Pulse Oximetry 96 08/24/17 11:51 Pain Scale Pain Intensity 6 - Physical Exam General Appearance: no apparent distress, alert Eye Exam: PERRL/EOMI, eyes nml inspection Ears, Nose, Throat Exam: normal ENT inspection, moist mucous membranes Neck Exam: normal inspection, non-tender, supple Respiratory Exam: lungs clear, diminished breath sounds, No respiratory distress Cardiovascular Exam: tachycardia, irregular, capillary refill <2 sec, No edema Gastrointestinal/Abdomen Exam: soft, No tenderness, No mass Back Exam: normal inspection, No CVA tenderness, No vertebral tenderness Extremity Exam: normal inspection, normal range of motion Neurologic Exam: alert, oriented x 3, cooperative, normal mood/affect, nml cerebellar function, sensation nml, No motor deficits Skin Exam: normal color, warm, dry Lymphatic Exam: No adenopathy SpO2: 96 Oxygen Delivery: Room Air - Course Nursing assessment & vital signs reviewed: Yes EKG Interpreted by Me: A-fib (with RVR) Rhythm Strip: Atrial Fibrillation - Radiology Exams Chest X-ray Interpretation: Reviewed by me (cardiomegaly, CHF changes) Ordered Tests: Active Orders 24 hr Category Date Time Status Gill Tender STAT Care 08/24/17 12:09 Active EKG-ER Only STAT Care 08/24/17 12:09 Active IV Insertion STAT Care 08/24/17 12:09 Active IV Insertion-2nd Peripheral STAT Care 08/24/17 12:23 Active Oxygen-ED Only NASAL CANNULA 3 lpm Care 08/24/17 12:09 Active CHEST 1 VIEW (PORTABLE) Stat Exams 08/24/17 12:09 Taken CBC W DIFF Stat Lab 08/24/17 12:00 Completed CMP Stat Lab 08/24/17 12:00 Completed D-DIMER QUANTITATION Stat Lab 08/24/17 12:00 Completed NT PRO BNP Stat Lab 08/24/17 12:00 Completed PROTIME WITH INR Stat Lab 08/24/17 12:00 Completed TROPONIN Q3H Lab 08/24/17 12:00 Completed TROPONIN Q3H Lab 08/24/17 15:15 Ordered TROPONIN Q3H Lab 08/24/17 18:15 Ordered TROPONIN Q3H Lab 08/24/17 21:15 Ordered TROPONIN Q3H Lab 08/25/17 00:15 Ordered Medication Summary Generic Name Dose Route Start Last Admin Trade Name Freq PRN Reason Stop Dose Admin Diltiazem HCl 100 mg/ Sodium 100 mls @ 10 mls/hr 08/24/17 12:15 08/24/17 12: 26 Chloride IV 08/24/17 22:16 Not Given .Q10H PEPPER Diltiazem HCl 100 mls @ 10 mls/hr 08/24/17 12:09 08/24/17 12:10 Cardizem Drip 100 Mg/100 Ml D5w IV 09/23/17 12:08 10 mg/hr .Q10H PRN 10 mls/hr HEART RATE/ A-FIB Administration Protocol 10 MG/HR Discontinued Medications Generic Name Dose Route Start Last Admin Trade Name Freq PRN Reason Stop Dose Admin Adenosine Confirm 08/24/17 12:00 Adenocard Iv 6 Mg/2 Ml Administered 08/24/17 12:01 Dose 12 mg IV .STK-MED ONE Adenosine 6 mg 08/24/17 12:09 08/24/17 11:54 Adenocard Iv 6 Mg/2 Ml IV 08/24/17 12:10 6 mg STAT ONE Administration Adenosine 12 mg 08/24/17 12:09 08/24/17 12:01 Adenocard Iv 6 Mg/2 Ml IV 08/24/17 12:10 12 mg STAT ONE Administration Diltiazem HCl Confirm 08/24/17 11:59 Cardizem Iv 50 Mg/10 Ml Administered 08/24/17 12:00 Dose 50 mg IV .STK-MED ONE Diltiazem HCl 10 mg 08/24/17 12:09 08/24/17 12:05 Cardizem Iv 50 Mg/10 Ml IV 08/24/17 12:10 10 mg STAT ONE Administration Diltiazem HCl Confirm 08/24/17 12:48 Cardizem Iv 50 Mg/10 Ml Administered 08/24/17 12:49 Dose 50 mg IV .STK-MED ONE Diltiazem HCl 10 mg 08/24/17 12:56 08/24/17 12:57 Cardizem Iv 50 Mg/10 Ml IV 08/24/17 12:57 10 mg STAT ONE Administration Sodium Chloride 1,000 mls @ 999 mls/hr 08/24/17 12:09 08/24/17 11:55 Sodium Chloride 0.9% 1000 Ml IV 08/24/17 13:09 999 mls/hr .Q1H1M STA Administration Labetalol HCl 5 mg 08/24/17 12:27 08/24/17 12:10 Trandate 20 Mg/5 Ml Syringe IV 08/24/17 12:28 5 mg STAT ONE Administration Lab/Rad Data: Laboratory Result Diagrams 08/24/17 12:00 08/24/17 12:00 Laboratory Results 08/24/17 08/24/17 08/24/17 Range/Units 12:00 12:00 12:00 WBC (4.0-10.5) K/mm3 RBC (4.1-5.6) M/mm3 Hgb (12.5-18.0) gm/dl Hct (42-50) % MCV (78-100) fl MCH (26-32) pg MCHC (32-36) g/dl RDW (11.5-14.0) % Plt Count (150-450) K/mm3 MPV (6-9.5) fl Gran % (36.0-66.0) % Lymphocytes % (24.0-44.0) % Monocytes % (0.0-12.0) % Eosinophils % (0.00-5.0) % Basophils % (0.0-0.4) % Basophils # (0-0.4) INR 1.36 (0.8-3.0) D-Dimer 492.66 (0-500) ng/mL Sodium 141 (136-145) mEq/L Potassium 4.2 (3.5-5.1) mEq/L Chloride 105 (98-107) mEq/L Carbon Dioxide 24.7 (21-32) mEq/L Anion Gap 15.1 H (5-15) MEQ/L BUN 15 (9-20) mg/dL Creatinine 0.82 (0.55-1.30) mg/dl Estimated GFR > 60 ML/MIN Glucose 125 H (70-110) MG/DL Calcium 9.0 (8.5-10.1) mg/dL Total Bilirubin 0.60 (0.2-1.0) mg/dL AST 34 (15-37) U/L ALT 39 (12-78) U/L Alkaline Phosphatase 83 (46-116) U/L Troponin I 0.035 (0.000-0.056) ng/ml NT-Pro-B Natriuret Pep 1171 H (0-125) pg/ml Serum Total Protein 8.1 (6.4-8.2) gm/dL Albumin 3.6 (3.4-5.0) g/dL 08/24/17 Range/Units 12:00 WBC 10.4 (4.0-10.5) K/mm3 RBC 4.39 (4.1-5.6) M/mm3 Hgb 14.1 (12.5-18.0) gm/dl Hct 41.6 L (42-50) % MCV 94.8 (78-100) fl MCH 32.1 H (26-32) pg MCHC 33.9 (32-36) g/dl RDW 12.8 (11.5-14.0) % Plt Count 225 (150-450) K/mm3 MPV 10.9 H (6-9.5) fl Gran % 61.3 (36.0-66.0) % Lymphocytes % 21.4 L (24.0-44.0) % Monocytes % 12.9 H (0.0-12.0) % Eosinophils % 4.3 (0.00-5.0) % Basophils % 0.1 (0.0-0.4) % Basophils # 0.01 (0-0.4) INR (0.8-3.0) D-Dimer (0-500) ng/mL Sodium (136-145) mEq/L Potassium (3.5-5.1) mEq/L Chloride (98-107) mEq/L Carbon Dioxide (21-32) mEq/L Anion Gap (5-15) MEQ/L BUN (9-20) mg/dL Creatinine (0.55-1.30) mg/dl Estimated GFR ML/MIN Glucose (70-110) MG/DL Calcium (8.5-10.1) mg/dL Total Bilirubin (0.2-1.0) mg/dL AST (15-37) U/L ALT (12-78) U/L Alkaline Phosphatase (46-116) U/L Troponin I (0.000-0.056) ng/ml NT-Pro-B Natriuret Pep (0-125) pg/ml Serum Total Protein (6.4-8.2) gm/dL Albumin (3.4-5.0) g/dL - Progress Progress: unchanged Air Movement: good Blood Culture(s) Obtained: No Antibiotics given: No Discussed with DrRosalino: Maldonado Samuel Will see patient in: hospital (full admit) Counseled pt/family regarding: lab results, diagnosis, need for follow-up, rad results - Departure Time of Disposition: 13:21 Departure Disposition: In-patient Admission Clinical Impression: Chest pain not due to acute coronary syndrome, Atrial fibrillation with RVR Condition: Fair Critical Care Time: Yes Critical Care Time(excluding separately billable procedures): 30-74 minutes Referrals: RENETTA CAMARGO [Primary Care Provider] - Instructions: Palpitations (DC)
[2017-08-24 12:39] LABS: ALBUMIN 3.6 g/dL (3.4-5.0); ALKALINE PHOSPHATASE 83 U/L (46-116); ANION GAP 15.1 MEQ/L (5-15); BLOOD UREA NITROGEN 15 mg/dL (9-20); CHLORIDE 105 mEq/L (98-107); Carbon Dioxide 24.7 mEq/L (21-32); Creatinine 1 0.82 mg/dl (0.55-1.30); EST GLOMERULAR FILTRATION RATE > 60 ML/MIN; Glucose 125 MG/DL (70-110); NT PRO BNP 1171 pg/ml (0-125); Potassium 4.2 mEq/L (3.5-5.1); SGOT/AST 34 U/L (15-37); SGPT/ALT 39 U/L (12-78); SODIUM 141 mEq/L (136-145); Total Protein 8.1 gm/dL (6.4-8.2)
[2017-08-24] MEDS ORDERED: Zofran 4 MG/2 ML VIAL IV PRN (13:59)
[2017-08-24] MEDS ORDERED: TYLENOL 325 MG PO PRN (13:59)
[2017-08-24] MEDS ORDERED: MILK OF MAGNESIA 30 ML PO PRN (13:59)
[2017-08-24] MEDS ORDERED: MAALOX ES 30 ML UNIT DOSE PO PRN (13:59)
[2017-08-24] MEDS ORDERED: Senokot-S Tablet PO PRN (13:59)
[2017-08-24] MEDS ORDERED: NON-FORMULARY ITEM (Ipratropium/Albuterol Sulfate [Combivent Inhaler] 14.7 GM) IH PRN (14:43)
[2017-08-24] MEDS ORDERED: Nitrostat 0.4 MG (ED) SL PRN (14:43)
[2017-08-24] MEDS ORDERED: DUONEB 0.5-3 MG/3 ml Neb IH PRN (14:54)
[2017-08-24] MEDS: NEURONTIN 300 MG PO SCH ×2 (15:11→21:06)
--- NOTE | 2017-08-24 19:38 | PCM.HP ---
History of Present Illness - Chief Complaint Chief Complaint: afib Date: 08/24/17 History of Present Illness: is a 62 year old male patient of Dr. Adams and Dr. Okeefe. He was at home were he has frozen pipes and this am began having a headache and chest pain and racing heart and thus presented to ED. He was found to have afib with rvr and given adenosine at first with no change then cardizem bolus followed by gtt and converted to sinus rhythm on arrival to the ICU. His symptoms resolved with conversion to sinus rhythm and currently denies any chest pain or shortness of breath. He denies drinking any caffeine or energy drinks. He denies any cold medications or decongestants other then cough drops and denies any illicit drugs since he is on probation currently with hx of methamphetamine possesion. According to the Emergency physician Dr. Winters initial efforts to transfer to the care of his lining marker in [place] was unsuccessful as they did not have beds available in the [facility]. - Review of Systems Constitutional: No Fever, No Chills Eyes: No Symptoms Ears, Nose, & Throat: No Symptoms Respiratory: No Cough, No Short Of Breath Cardiac: No Chest Pain, No Edema, No Syncope Abdominal/Gastrointestinal: No Abdominal Pain, No Nausea, No Vomiting, No Diarrhea Genitourinary Symptoms: No Dysuria Musculoskeletal: No Back Pain, No Neck Pain Skin: No Rash Neurological: No Dizziness, No Focal Weakness, No Sensory Changes Psychological: No Symptoms Endocrine: No Symptoms Hematologic/Lymphatic: No Symptoms Immunological/Allergic: No Symptoms Medications & Allergies Home Medications: Home Medication List Clopidogrel Bisulfate [Clopidogrel] 75 mg PO DAILY 08/24/17 [History Confirmed 08/24/17] Escitalopram Oxalate 10 mg [Lexapro 10 MG] 10 mg PO DAILY 08/24/17 [History Confirmed 08/24/17] Gabapentin [Gabapentin] 300 mg PO TID 08/24/17 [History Confirmed 08/24/17] Hydrocodone Bit/Acetaminophen [Hydrocodon-Acetaminophen 5-325] 1 each PO Q4- 6HPRN PRN 08/24/17 [History Confirmed 08/24/17] Ipratropium/Albuterol Sulfate [Combivent Inhaler] 14.7 gm IH BIDPRN PRN [History Confirmed 08/24/17] Metoprolol Succinate 50 mg [Toprol Xl 50 MG] 50 mg PO BID 08/24/17 [ History Confirmed 08/24/17] Nitroglycerin 0.4 mg (Ed) [Nitrostat 0.4 MG (ED)] 0.4 mg SL UD PRN [History Confirmed 08/24/17] Pantoprazole Sodium 40 mg PO DAILY 08/24/17 [History Confirmed 08/24/17] Potassium Chloride 20 Meq [Klor-Con 20 MEQ] 20 meq PO DAILY 08/24/17 [History Confirmed 08/24/17] Pravastatin Sodium [Pravachol] 20 mg PO DAILY 08/24/17 [History Confirmed ] Ramipril [Altace] 10 mg PO BID 08/24/17 [History Confirmed 08/24/17] Rivaroxaban [Xarelto] 20 mg PO DAILY 08/24/17 [History Confirmed 08/24/17] Allergies/Adverse Reactions: Allergies Allergy/AdvReac Type Severity Reaction Status Date / Time codeine [Codeine] Allergy Hives Verified 08/24/17 12:11 - Past Medical History Past Medical History: Yes Neurological History: No Pertinent History ENT History: No Pertinent History Cardiac History: Arrhythmia, Hypertension, Other Respiratory History: COPD Endocrine Medical History: No Pertinent History Musculoskelatal History: Arthritis, Fractures GI Medical History: Hepatitis History: No Pertinent History Pyscho-Social History: Anxiety, Depression Male Reproductive Disorders: No Pertinent History Comment: HAS Defibrillator ON LEFT CHEST due to hypertrophic cardiomyopathy - Past Surgical History Past Surgical History: Yes Neuro Surgical History: No Pertinent History Cardiac History: Pacemaker Respiratory Surgery: No Pertinent History GI Surgical History: No Pertinent History Genitourinary Surgical Hx: No Pertinent History Musculskeletal Surgical Hx: Joint Replacement Male Surgical History: No Pertinent History Other Surgical History: states pacemaker x 3 - Social History Smoking Status: Never smoker Exposure to second hand smoke: No Alcohol: None Drug Use: none Significant Family History: heart disease, hypertension - Physical Exam Vital Signs: Vital Signs - 24 hr Temp Pulse Pulse Resp BP BP Pulse Ox 08/24/17 16:13 56 L 18 97 08/24/17 16:00 49 L 96 08/24/17 15:00 97.9 F 52 L 18 111/67 97 08/24/17 14:02 97.9 F 56 L 18 110/61 96 08/24/17 14:00 98 F 56 L 18 98/57 96 08/24/17 13:37 114 H 18 149/101 08/24/17 13:21 96 08/24/17 13:05 105 H 16 148/101 96 08/24/17 12:42 136 H 20 126/68 96 08/24/17 12:10 156 H 18 158/104 08/24/17 11:55 178 H 08/24/17 11:51 97.9 F 170 H 24 163/114 96 Oxygen-Last 24 hours O2 Percentage 2 Liters = 28% O2 Percentage 2 Liters = 28% O2 Percentage 3 Liters = 32% General Appearance: no apparent distress, alert Neurologic Exam: alert, oriented x 3, cooperative, normal mood/affect, nml cerebellar function, nml station & gait, sensation nml, No motor deficits Eye Exam: PERRL/EOMI, eyes nml inspection Ears, Nose, Throat Exam: normal ENT inspection, TMs normal, pharynx normal, moist mucous membranes Neck Exam: normal inspection, non-tender, supple, full range of motion Respiratory Exam: normal breath sounds, lungs clear, No respiratory distress Cardiovascular Exam: normal peripheral pulses, murmur (2/6 systolic), bradycardia Gastrointestinal/Abdomen Exam: soft, normal bowel sounds, No tenderness, No mass Back Exam: normal inspection, normal range of motion, No CVA tenderness, No vertebral tenderness Extremity Exam: normal inspection, normal range of motion, pelvis stable Skin Exam: normal color, warm, dry, No rash Lymphatic Exam: No adenopathy Results - Labs Lab/Micro Results: Lab Results-Last 24 Hours 08/24/17 08/24/17 Range/Units 15:20 18:25 Troponin I 0.056 0.082 H* (0.000-0.056) ng/ml - Other Procedures and Tests Respiratory Therapy 08/24/17 16:10 Respiratory Nebulizer BID 08/24/17 20:00 EKG ONCE 08/25/17 05:00 EKG ONCE 08/26/17 05:00 EKG ONCE 08/27/17 05:00 EKG ONCE Assessment/Plan (1) Atrial fibrillation with RVR Current Visit: Yes Status: Acute Assessment & Plan: per records it appears last heart cath was 10/02/15 with mild atherosclerosis and hypertrophic cardiomyopathy current ekg after conversion to sinus rhythm with LVH strain pattern and old anterolateral DE with no change compared to ekg 06/26/17 and 01/04/16 currently symptom free there were no bed available in [place] per ED physician currently most likely type 2 NSTEMI due to demand ischemia with the afib with rvr he is already anticoagulated with xarelto and plavix at baseline he is now off the cardizem back on his beta lobo continue his statin and didi inhibitor continue his optimal medical mgmt will find tranport to facility with clinical lab clerk capabilities if ekg changes or evidence of unstable angina which are not present currently. check mag, tsh, and urine drug screen as well echo ordered for am Code(s): I48.91 - UNSPECIFIED ATRIAL FIBRILLATION (2) Hypertrophic cardiomyopathy Current Visit: Yes Status: Acute Code(s): I42.2 - OTHER HYPERTROPHIC CARDIOMYOPATHY (3) COPD (chronic obstructive pulmonary disease) Current Visit: Yes Status: Acute
[2017-08-24] MEDS: Toprol Xl 50 MG PO SCH (21:07)
[2017-08-24] MEDS: Pepcid 20 MG VIAL IV SCH (21:07)
[2017-08-24] MEDS: PROVENTIL 2.5 MG/3 ML NEB IH SCH (21:15)
--- NOTE | 2017-08-24 21:30 | XRAY ---
Indication: Chest pain. Palpitations. Comparison: August 19, 2017. Portable chest demonstrates numerous overlying monitoring leads. Lungs remain clear. Heart is not enlarged with stable AICD. No new/acute findings.
[2017-08-24 21:51] LABS: Amphetamine,Urine NEG. (NEGATIVE); Barbiturate,Urine NEG. (NEGATIVE); Benzodiazepine,Urine NEG. (NEGATIVE); Cocaine,Urine NEG. (NEGATIVE); Methadone,Urine NEG. (NEGATIVE); Opiate,Urine POS. (NEGATIVE); PCP,Urine NEG. (NEGATIVE); THC,Urine NEG. (NEGATIVE)
[2017-08-25] MEDS: PROVENTIL 2.5 MG/3 ML NEB IH SCH ×2 (05:21→20:11)
[2017-08-25 06:54] LABS: TSH, 3RD Generation 0.712 mIU/L (0.358-3.740)
--- NOTE | 2017-08-25 09:02 | PCM.NOTE ---
Date and Time: 08/25/17 0857 Subjective Assessment: Patient reports he was just discharged from [facility] a few days ago. His record here shows he was transferred from our ER on 08/19/17 to [facility]. Will ask for records from [facility]. Per ER note, no beds were available for patient to transfer this time. Patient denies chest pain in the last 24 hours. His appetite has been good. He is asking about being back on a benzo for his anxiety. He has not been following up in the clinic for his refills. He had brought a paper for me to sign at the [facility] that said he might look intoxicated if pulled over from the [facility]. He is asking about this paper. I explained to him that there is no medical reason he should look intoxicated if pulled over. - Review of Systems Constitutional: No Symptoms Eyes: No Symptoms Ears, Nose, & Throat: No Symptoms Respiratory: Cough, Short Of Breath, Other (cough productive of some sputum) Cardiac: No Symptoms Abdominal/Gastrointestinal: No Symptoms Genitourinary Symptoms: No Symptoms Musculoskeletal: No Symptoms Skin: No Symptoms Objective Exam General Appearance: no apparent distress, alert Neurologic Exam: alert, cooperative, normal mood/affect Skin Exam: normal color, warm, dry Respiratory Exam: normal breath sounds, lungs clear, No crackles/rales, No rhonchi, No wheezing Cardiovascular Exam: regular rate/rhythm, normal heart sounds, No murmur, No friction rub, No gallop Gastrointestinal/Abdomen Exam: soft, normal bowel sounds, No tenderness, No distention, No mass Extremity Exam: other (no c/c/e; +2 radial pulses bilat) OBJECTIVE DATA Vital Signs: Vital Signs - 24 hr Temp Pulse Pulse Resp BP BP Pulse Ox 08/25/17 07:51 97.8 F 59 L 16 136/88 97 08/25/17 05:40 61 16 97 08/25/17 04:00 98.4 F 61 20 124/89 95 08/25/17 00:01 55 L 08/25/17 00:00 98.4 F 55 L 19 128/82 94 L 08/24/17 21:16 61 20 95 08/24/17 19:44 14 08/24/17 19:32 98.4 F 56 L 14 112/69 96 08/24/17 16:13 56 L 18 97 01/14/18 16:00 49 L 96 08/24/17 15:00 97.9 F 52 L 18 111/67 97 08/24/17 14:02 97.9 F 56 L 18 110/61 96 08/24/17 14:00 98 F 56 L 18 98/57 96 08/24/17 13:37 114 H 18 149/101 08/24/17 13:21 96 08/24/17 13:05 105 H 16 148/101 96 08/24/17 12:42 136 H 20 126/68 96 08/24/17 12:10 156 H 18 158/104 08/24/17 11:55 178 H 08/24/17 11:51 97.9 F 170 H 24 163/114 96 Oxygen-Last 24 hours O2 Percentage 2 Liters = 28% O2 Percentage 2 Liters = 28% O2 Percentage 3 Liters = 32% Pain Assessment - Last Documented Pain Intensity 0 Pain Scale Used 0-10 Pain Scale Intake and Output: Intake & Output 08/22/17 08/23/17 08/24/17 08/25/17 23:59 23:59 23:59 23:59 Intake Total 480 340 Output Total 400 525 Balance 80 -185 Weight 85.8 kg 85 kg Lab Results: Lab Results-Last 24 Hours 08/24/17 08/24/17 08/24/17 Range/Units 15:20 18:25 21:39 Magnesium (1.8-2.4) mg/dL Troponin I 0.056 0.082 H* 0.075 H* (0.000-0.056) ng/ml Triglycerides (30-200) mg/dL Cholesterol (100-200) mg/dL LDL Cholesterol (5-99) mg/dL HDL Cholesterol (35-60) mg/dL Heart Disease Risk Ratio TSH 3rd Generation (0.358-3.740) mIU/L Urine Opiates Level (NEGATIVE) Ur Methadone (NEGATIVE) Urine Barbiturates (NEGATIVE) Ur Phencyclidine (PCP) (NEGATIVE) Urine Amphetamine (NEGATIVE) U Benzodiazepine Level (NEGATIVE) Urine Cocaine (NEGATIVE) Urine Marijuana (THC) (NEGATIVE) 08/24/17 08/25/17 08/25/17 Range/Units 21:39 00:32 05:40 Magnesium 1.9 (1.8-2.4) mg/dL Troponin I 0.067 H* (0.000-0.056) ng/ml Triglycerides (30-200) mg/dL Cholesterol (100-200) mg/dL LDL Cholesterol (5-99) mg/dL HDL Cholesterol (35-60) mg/dL Heart Disease Risk Ratio TSH 3rd Generation (0.358-3.740) mIU/L Urine Opiates Level POS. (NEGATIVE) Ur Methadone NEG. (NEGATIVE) Urine Barbiturates NEG. (NEGATIVE) Ur Phencyclidine (PCP) NEG. (NEGATIVE) Urine Amphetamine NEG. (NEGATIVE) U Benzodiazepine Level NEG. (NEGATIVE) Urine Cocaine NEG. (NEGATIVE) Urine Marijuana (THC) NEG. (NEGATIVE) 08/25/17 Range/Units 05:40 Magnesium (1.8-2.4) mg/dL Troponin I (0.000-0.056) ng/ml Triglycerides 53 (30-200) mg/dL Cholesterol 155 (100-200) mg/dL LDL Cholesterol 98 (5-99) mg/dL HDL Cholesterol 39 (35-60) mg/dL Heart Disease Risk Ratio 4.0 TSH 3rd Generation 0.712 (0.358-3.740) mIU/L Urine Opiates Level (NEGATIVE) Ur Methadone (NEGATIVE) Urine Barbiturates (NEGATIVE) Ur Phencyclidine (PCP) (NEGATIVE) Urine Amphetamine (NEGATIVE) U Benzodiazepine Level (NEGATIVE) Urine Cocaine (NEGATIVE) Urine Marijuana (THC) (NEGATIVE) Radiology Exams: Radiology Procedures Category Date Time Status ECHO W/2D AND DOPPLER [US] Routine Exams 08/25/17 07:00 Taken Assessment/Plan (1) Paroxysmal atrial fibrillation Current Visit: Yes Status: Acute Assessment & Plan: He is currently in sinus rhythm. He is anticoagulated on Xarelto. Continue with metoprolol 50 mg po bid to control rate if he goes back into atrial fibrillation. Will consult his cider press operator and try to obtain records from [facility] concerning his recent hospitalization there. Code(s): I48.0 - PAROXYSMAL ATRIAL FIBRILLATION (2) Non-ST elevated myocardial infarction (non-STEMI) Current Visit: Yes Status: Acute Assessment & Plan: His troponin is trending down. Will consult his cider press operator. Continue plavix and xarelto, ramipril, pravastatin, metoprolol and nitroglycerin as needed. Echo done today. Patient also has defibrillator. Code(s): I21.4 - NON-ST ELEVATION (NSTEMI) MYOCARDIAL INFARCTION (3) COPD (chronic obstructive pulmonary disease) Current Visit: Yes Status: Acute Assessment & Plan: He reports some shortness of breath. Will ask RT to evaluate. Check sputum culture. Portable chest X-ray was normal on 08/24/17. (4) Chronic pain Current Visit: Yes Status: Acute Assessment & Plan: He has norco ordered here prn. Patient told he would need to follow up in clinic to discuss further scripts. Code(s): G89.29 - OTHER CHRONIC PAIN
[2017-08-25] MEDS: Protonix 40MG Tablet PO SCH (09:14)
[2017-08-25] MEDS: Ecotrin 325 MG PO SCH (09:14)
[2017-08-25] MEDS: ZOCOR 20MG PO SCH (09:15)
[2017-08-25] MEDS: PLAVIX 75 MG Tablet PO SCH (09:15)
[2017-08-25] MEDS: Altace 5 MG PO SCH (09:16)
[2017-08-25] MEDS: Toprol Xl 50 MG PO SCH ×2 (09:16→21:18)
[2017-08-25] MEDS: Klor Con 10 MEQ PO SCH (09:16)
[2017-08-25] MEDS: NEURONTIN 300 MG PO SCH ×3 (09:21→21:18)
[2017-08-25] MEDS: Pepcid 20 MG VIAL IV SCH ×2 (09:22→21:18)
[2017-08-25] MEDS: Lexapro 10 MG PO SCH (09:22)
[2017-08-25] MEDS: NORCO 5/325 MG PO PRN ×2 (09:27→21:18)
[2017-08-25] MEDS ORDERED: NON-FORMULARY ITEM (Potassium Chloride 20 Meq [Klor-Con 20 Meq] 20 MEQ) PO SCH (10:00)
[2017-08-25] MEDS ORDERED: NON-FORMULARY ITEM (Pravastatin Sodium [Pravachol] 20 MG) PO SCH (10:00)
[2017-08-25] MEDS ORDERED: ENOXAPARIN SODIUM SQ SCH (10:00)
[2017-08-25] MEDS ORDERED: NON-FORMULARY ITEM (Ramipril [Altace] 10 MG) PO SCH (10:00)
[2017-08-25] MEDS ORDERED: XARELTO 10 MG TABLET PO SCH (10:00)
[2017-08-25] MEDS ORDERED: Vibramycin 100 MG PO ONE (11:55)
--- NOTE | 2017-08-25 14:28 | XRAY ---
Indication: Cough. Comparison: August 24, 2017. PA/lateral chest unchanged again demonstrating normal heart and lungs with left-sided AICD. Heart and mediastinal structures within normal limits. No new/acute findings.
[2017-08-25] MEDS ORDERED: Multaq 400 MG PO SCH (17:00)
[2017-08-25] MEDS: Multaq 400 MG PO SCH (17:16)
[2017-08-25] MEDS: Vibramycin 100 MG PO SCH (21:18)
[2017-08-25] MEDS: Sodium Chloride 0.9% 10 ML FLUSH Syringe IV SCH (21:27)
[2017-08-26] MEDS: NORCO 5/325 MG PO PRN ×3 (03:25→21:49)
[2017-08-26] MEDS: PROVENTIL 2.5 MG/3 ML NEB IH SCH ×2 (05:24→17:40)
[2017-08-26] MEDS: Sodium Chloride 0.9% 10 ML FLUSH Syringe IV SCH ×3 (06:08→21:50)
[2017-08-26] MEDS: Multaq 400 MG PO SCH ×2 (08:08→16:40)
--- NOTE | 2017-08-26 08:47 | PCM.NOTE ---
Date and Time: 08/26/17 0843 Subjective Assessment: Patient reports some mild chest discomfort and discomfort around his defibrillator and left shoulder. He states he feels bloated and gassy when he eats. He reports he continues to have a cough. Dr. Adams saw him yesterday by telemedicine and may transfer him to [facility] today in preparation for a heart cath. We are still awaiting records from [facility] about his recent hospitalization there just within the last 2 weeks. - Review of Systems Constitutional: No Symptoms Eyes: No Symptoms Ears, Nose, & Throat: No Symptoms Respiratory: Cough Cardiac: Chest Pain Abdominal/Gastrointestinal: No Symptoms Genitourinary Symptoms: No Symptoms Musculoskeletal: Other (left shoulder pain) Objective Exam General Appearance: no apparent distress, alert Neurologic Exam: alert, cooperative, normal mood/affect Skin Exam: normal color, warm, dry, No rash Respiratory Exam: normal breath sounds, lungs clear, No crackles/rales, No rhonchi, No wheezing Cardiovascular Exam: regular rate/rhythm, normal heart sounds, No murmur, No friction rub, No gallop Gastrointestinal/Abdomen Exam: soft, normal bowel sounds, No tenderness, No distention, No mass, No guarding Extremity Exam: other (no c/c/e) OBJECTIVE DATA Vital Signs: Vital Signs - 24 hr Temp Pulse Resp BP Pulse Ox 08/26/17 07:46 97.8 F 54 L 17 149/91 98 08/26/17 05:24 63 18 97 08/26/17 04:00 98.1 F 63 17 147/85 97 08/26/17 00:01 63 08/26/17 00:00 98.3 F 62 18 146/86 96 08/25/17 20:11 62 18 96 08/25/17 20:00 98.3 F 70 15 148/84 98 08/25/17 16:00 98.3 F 58 L 16 140/74 97 08/25/17 12:00 97.9 F 66 16 132/80 95 Pain Assessment - Last Documented Pain Intensity 4 Pain Scale Used 0-10 Pain Scale Intake and Output: Intake & Output 08/24/17 08/25/17 08/26/17 08/27/17 06:59 06:59 06:59 06:59 Intake Total 720 1360 Output Total 925 1100 Balance -205 260 Weight 85.8 kg 86.5 kg Radiology Exams: Radiology Procedures Category Date Time Status CHEST 2 VIEWS (PA AND LAT) Routine Exams 08/25/17 14:19 Completed ECHO W/2D AND DOPPLER [US] Routine Exams 08/25/17 07:00 Taken Assessment/Plan (1) Paroxysmal atrial fibrillation Current Visit: Yes Status: Acute Assessment & Plan: His anticoagulation (xarelto) is currently being held by his mold parter in preparation for possible heart cath when transferred to [facility]. We are awaiting on a definitive decision to transfer from his mold parter. Code(s): I48.0 - PAROXYSMAL ATRIAL FIBRILLATION (2) Non-ST elevated myocardial infarction (non-STEMI) Current Visit: Yes Status: Acute Assessment & Plan: Will recheck his troponin today. Dr. Adams is following. Continue plavix and aspirin. Code(s): I21.4 - NON-ST ELEVATION (NSTEMI) MYOCARDIAL INFARCTION (3) COPD (chronic obstructive pulmonary disease) Current Visit: Yes Status: Acute Assessment & Plan: Chest X-ray was normal. Continue doxycycline. (4) Chronic pain Current Visit: Yes Status: Acute Assessment & Plan: Patient has hydrocodone ordered here. Code(s): G89.29 - OTHER CHRONIC PAIN
[2017-08-26] MEDS: Protonix 40MG Tablet PO SCH (10:01)
[2017-08-26] MEDS: Pepcid 20 MG VIAL IV SCH ×2 (10:01→21:50)
[2017-08-26] MEDS: Toprol Xl 50 MG PO SCH ×2 (10:01→21:49)
[2017-08-26] MEDS: PLAVIX 75 MG Tablet PO SCH (10:01)
[2017-08-26] MEDS: ZOCOR 20MG PO SCH (10:02)
[2017-08-26] MEDS: Altace 5 MG PO SCH (10:02)
[2017-08-26] MEDS: Ecotrin 325 MG PO SCH (10:02)
[2017-08-26] MEDS: Klor Con 10 MEQ PO SCH (10:03)
[2017-08-26] MEDS: NEURONTIN 300 MG PO SCH ×3 (10:04→21:49)
[2017-08-26] MEDS: Vibramycin 100 MG PO SCH ×2 (10:04→21:49)
[2017-08-26] MEDS: Lexapro 10 MG PO SCH (10:04)
[2017-08-27] MEDS: Robitussin 100 MG/5 ML PO PRN ×2 (01:33→09:47)
[2017-08-27] MEDS: Sodium Chloride 0.9% 10 ML FLUSH Syringe IV SCH ×2 (05:04→17:13)
[2017-08-27] MEDS: PROVENTIL 2.5 MG/3 ML NEB IH SCH (05:40)
[2017-08-27] MEDS: ZOCOR 20MG PO SCH (09:42)
[2017-08-27] MEDS: NORCO 5/325 MG PO PRN (09:42)
[2017-08-27] MEDS: Toprol Xl 50 MG PO SCH (09:42)
[2017-08-27] MEDS: Multaq 400 MG PO SCH ×2 (09:42→17:12)
[2017-08-27] MEDS: Klor Con 10 MEQ PO SCH (09:42)
[2017-08-27] MEDS: Vibramycin 100 MG PO SCH (09:42)
[2017-08-27] MEDS: NEURONTIN 300 MG PO SCH ×2 (09:44→17:12)
[2017-08-27] MEDS: Protonix 40MG Tablet PO SCH (09:44)
[2017-08-27] MEDS: Altace 5 MG PO SCH (09:44)
[2017-08-27] MEDS: Pepcid 20 MG VIAL IV SCH (09:45)
[2017-08-27] MEDS: Ecotrin 325 MG PO SCH (09:51)
[2017-08-27] MEDS: PLAVIX 75 MG Tablet PO SCH (09:51)
[2017-08-27] MEDS ORDERED: Lexapro 10 MG PO SCH (10:00)
--- NOTE | 2017-08-27 12:36 | PCM.NOTE ---
Date and Time: 08/27/17 1231 Subjective Assessment: He reports he continues to have some chest pain on and off. He denies shortness of breath or nausea with this. His appetite has been good. He is asking about being put back on xanax. Discussed lexapro with him which he is actually already on. He reports some pain in his left knee cap. We are awaiting a bed at [facility] so he can be transferred for heart cath. He reports his cough is a little better. - Review of Systems Constitutional: No Symptoms Eyes: No Symptoms Ears, Nose, & Throat: No Symptoms Respiratory: Cough Cardiac: Chest Pain Abdominal/Gastrointestinal: No Symptoms Genitourinary Symptoms: No Symptoms Musculoskeletal: No Symptoms Skin: No Symptoms Objective Exam General Appearance: no apparent distress Neurologic Exam: alert, cooperative, normal mood/affect Skin Exam: normal color, warm, dry, No rash Respiratory Exam: normal breath sounds, lungs clear, No accessory muscle use, No crackles/rales, No rhonchi, No wheezing Cardiovascular Exam: regular rate/rhythm, normal heart sounds, No murmur, No friction rub, No gallop Gastrointestinal/Abdomen Exam: soft, normal bowel sounds, No tenderness, No distention, No mass Extremity Exam: other (no c/c/e, no erythema or swelling of left knee, subjective tenderness at medial aspect of left knee) OBJECTIVE DATA Vital Signs: Vital Signs - 24 hr Temp Pulse Resp BP Pulse Ox 08/27/17 12:00 97.2 F 53 L 20 133/94 94 L 08/27/17 08:00 97.3 F 59 L 18 142/88 95 08/27/17 05:40 52 L 16 95 08/27/17 04:00 97.8 F 51 L 16 146/84 97 08/27/17 00:01 53 L 08/27/17 00:00 51 L 15 119/76 94 L 08/26/17 20:00 98.5 F 63 17 112/71 96 08/26/17 17:40 56 L 20 96 08/26/17 15:46 98.5 F 54 L 17 120/80 95 Pain Assessment - Last Documented Pain Intensity 2 Pain Scale Used 0-10 Pain Scale Intake and Output: Intake & Output 08/25/17 08/26/17 08/27/17 08/28/17 06:59 06:59 06:59 06:59 Intake Total 720 1360 2040 Output Total 925 1100 2450 300 Balance -205 260 -410 -300 Weight 85.8 kg 86.5 kg 86.3 kg Lab Results: Lab Results-Last 24 Hours 08/27/17 Range/Units 08:20 Troponin I 0.026 (0.000-0.056) ng/ml Radiology Exams: Radiology Procedures Category Date Time Status CHEST 2 VIEWS (PA AND LAT) Routine Exams 08/25/17 14:19 Completed Assessment/Plan (1) Paroxysmal atrial fibrillation Current Visit: Yes Status: Acute Assessment & Plan: Currently in sinus rhythm. Anticoagulation is being held per his business control specialist for planned up coming cath once he is transferred to [facility] when a bed becomes available. Code(s): I48.0 - PAROXYSMAL ATRIAL FIBRILLATION (2) Non-ST elevated myocardial infarction (non-STEMI) Current Visit: Yes Status: Acute Assessment & Plan: I rechecked a troponin this AM with his continued chest pain and it was in the normal range. His EKG this AM was without any ST or T wave changes and sinus rhythm. Code(s): I21.4 - NON-ST ELEVATION (NSTEMI) MYOCARDIAL INFARCTION (3) COPD (chronic obstructive pulmonary disease) Current Visit: Yes Status: Acute Assessment & Plan: Continue doxycycline and breathing treatments. (4) Chronic pain Current Visit: Yes Status: Acute Assessment & Plan: Continue home dose of hydrocodone. Code(s): G89.29 - OTHER CHRONIC PAIN
[2017-08-27 17:19] VITALS: BP 133/82; O2SAT 96
[2017-08-27 17:43] VITALS: PULSE 60
--- NOTE | 2017-08-28 07:55 | ECHO ---
DATE OF PROCEDURE: 08/25/2017 CLINICAL INFORMATION: Atrial fibrillation. The patient had a pacemaker implanted in 1999. The M-mode 2D, and Doppler echocardiogram including color flow Doppler shows normal contractility of the left ventricle. The left ventricle is normal in size with a dimension of 5.0 cm. The septal wall thickness has increased mildly at 1.3 cm. The left ventricular posterior wall thickness is at the upper limits of normal being 1.1 cm. There is no apical thrombus present. The ejection fraction is calculated to be 73%. There is moderate mitral regurgitation present. The left atrium is dilated moderately at 5.0 cm. The interatrial septum is intact. No apical thrombus present. There is mild tricuspid regurgitation present. The right ventricle is normal in size and function. There is a right ventricular and right atrial electrode present. The aortic valve opens well. The pulmonic valve is not well visualized. There is no pericardial effusion present. IMPRESSION: 1) NORMAL CONTRACTILITY OF THE LEFT VENTRICLE. 2) MODERATE MITRAL REGURGITATION. 3) MILD ASYMMETRIC LEFT VENTRICULAR HYPERTROPHY. 4) MILD TRICUSPID REGURGITATION. 5) NORMAL RIGHT VENTRICULAR SYSTOLIC PRESSURE. 6) RIGHT VENTRICULAR AND RIGHT ATRIAL ELECTRODES. 7) NO THROMBUS IS NOTED.
--- NOTE | 2017-08-28 14:22 | DS ---
DISCHARGE DIAGNOSES: 1) PAROXYSMAL ATRIAL FIBRILLATION. 2) NON-ST MYOCARDIAL INFARCTION. 3) CHRONIC OBSTRUCTIVE PULMONARY DISEASE. 4) CHRONIC PAIN. DISCHARGE PHYSICAL EXAMINATION: VITALS: Temperature current 97.2F, temperature max 98.5F, heart rate 51 to 63, respiratory rate 16 to 20, blood pressure 112 to 145 over 71 to 94, weight 86.3 kg. Oxygen saturation 94 to 97% on room air. GENERAL: The patient is a pleasant talkative man sitting up in no acute distress. CVS: His heart had a regular rate and rhythm. No murmurs, gallops or rubs are appreciated. CHEST: Clear to auscultation bilaterally. No accessory muscle use. No crackles. No rhonchi. No wheezes. ABDOMEN: Soft, nontender, nondistended with normal bowel sounds. EXTREMITIES: No clubbing, cyanosis or edema. SKIN: Warm, dry and intact. HOSPITAL COURSE: 1) PAROXYSMAL ATRIAL FIBRILLATION: He was admitted with atrial fibrillation with rapid ventricular response. He was already on Xarelto and Plavix at home. He was placed on Cardizem drip and then transitioned back to his beta lobo. He stayed in sinus rhythm throughout his hospitalization. His wax blender, Dr. Adams, was consulted on 08/25/2017 and saw the patient by tele-medicine. He wanted to transfer him from our emergency room to [facility] but they did not have any beds available at that time. 2) NON-ST ELEVATION MYOCARDIAL INFARCTION: His troponins were elevated on admission. The highest was 0.0182 on 08/24/2017 and then trended down and on the day of discharge his troponin was normal. Dr. Adams saw him and had his Xarelto held on Friday and planned to take him for heart catheterization and he transferred to [facility] and inpatient bed was obtained and he was transferred to [facility] in fair condition on 08/27/2017. He was continued on his Plavix and aspirin during his hospitalization as well as his beta lobo and statin. 3) CHRONIC OBSTRUCTIVE PULMONARY DISEASE: He had a cough productive of some sputum. However the sputum was just normal respiratory faye. His chest x-ray was normal. I did start him on doxycycline 100 mg p.o. b.i.d. and this seemed to improve some during his hospitalization. 4) CHRONIC PAIN: He was continued on his home dose of hydrocodone. DISPOSITION: The patient was discharged to [facility] to see his wax blender for heart catheterization in stable condition. He was transferred by ACLS directly to an inpatient bed.
== END 2017-08-27 16:30 | disposition short-term general hospital (02) | DRG 282 ==
LOC: ED 11:50 → ICU 13:54 → OBSVTOIN 13:54
PROVIDERS: ADMIT Internal Medicine; ATTEND Internal Medicine
DX: R07.89 Other chest pain (principal); I24.9 Acute ischemic heart disease, unspecified; I48.91 Unspecified atrial fibrillation; I48.0 Paroxysmal atrial fibrillation; I21.4 Non-ST elevation (NSTEMI) myocardial infarction; Z79.01 Long term (current) use of anticoagulants; I50.9 Heart failure, unspecified; I10 Essential (primary) hypertension; I42.2 Other hypertrophic cardiomyopathy; J44.9 Chronic obstructive pulmonary disease, unspecified; G89.29 Other chronic pain; F45.42 Pain disorder with related psychological factors; M19.90 Unspecified osteoarthritis, unspecified site; K75.9 Inflammatory liver disease, unspecified; F41.8 Other specified anxiety disorders; Z79.899 Other long term (current) drug therapy; Z95.0 Presence of cardiac pacemaker
CPT/HCPCS: 36000; 36415; 71045; 71046; 80053; 80061; 80307; 83721; 83735; 83880; 84443; 84484; 85025; 85379; 85610; 87070; 93005; 93041; 93306; 94640; 96374; 96375; 96376; 99285; J0153; J2405; Q3014; A9270-GY

== ENCOUNTER 2018-02-04 21:17 | Emergency (ER) | payer MEDICARE ==
[2018-02-04] MEDS ORDERED: Cardizem IV 50 MG/10 ML IV ONE ×4 (21:27→22:00)
[2018-02-04] MEDS ORDERED: CARDIZEM DRIP 100 MG/100 ML D5W 100 ML IV ONE (21:28)
[2018-02-04] MEDS ORDERED: Sodium Chloride 0.9% 1000 ML 1,000 ML IV SCH (21:30)
--- NOTE | 2018-02-04 21:36 | ERPHSYRPT ---
- History of Present Illness Time Seen by Provider: 02/04/18 21:25 Source: patient, EMS Exam Limitations: no limitations Patient Subjective Stated Complaint: Pt arrives to ER via EMS from home where pt was mowing grass when his defibrillator started firing every 30 seconds, EMS witnessed 5 shocks but none since arrival to ER. Pt denies chest pain, only pain when defib fires. Pt warm, pale, diaphoretic at this time. A&Ox4. Hx A-Fib , appears to be in RVR with HR 140's-220's and irregular. EMS gave 324mg ASA en route. Triage Nursing Assessment: see above Physician History: 62-year-old white male with history of atrial fibrillation, high blood pressure , arrhythmia, COPD, arthritis, fractures brought by medics with complaint that the patient's defibrillator has been going off repeatedly. Patient states that about 30 minutes to 1 hour he has been having this symptom he states it began after mowing the lawn he has no chest pain other than what shocks he is complaining of shortness of breath. He has no fevers no nausea no vomiting. Medics state the patient was noted to have his defibrillator going off as many as 5 times prior to arrival. Past medical history includes atrial fibrillation, high blood pressure, arrhythmia, COPD, arthritis, fractures, hepatitis, anxiety, depression, AICD, pacer Past surgical history includes pacer 3 Old chart shows joint replacement however patient states he does not have one of these Timing/Duration: today (30 minutes to 1 hour) Severity: moderate Modifying Factors: Improves With: nothing Associated Symptoms: shortness of breath, No nausea, No vomiting, No abdominal pain, No heartburn, No diaphoresis, No cough, No chills, No chest pain, No fever , No headaches, No loss of appetite, No malaise, No rash, No syncope, No seizure (this), No weakness Allergies/Adverse Reactions: codeine [Codeine] Allergy (Verified 08/24/17 12:11) Hives pt states hives are quick onset Home Medications: Escitalopram Oxalate 10 mg [Lexapro 10 MG] 10 mg PO DAILY 08/24/17 [History] Gabapentin 300 mg PO TID 08/24/17 [History] Ipratropium/Albuterol Sulfate [Combivent Inhaler] 14.7 gm IH BIDPRN PRN [History] Metoprolol Succinate 50 mg [Toprol Xl 50 MG] 50 mg PO BID 08/24/17 [ History] Nitroglycerin 0.4 mg (Ed) [Nitrostat 0.4 MG (ED)] 0.4 mg SL UD PRN [History] Pantoprazole Sodium 40 mg PO DAILY 08/24/17 [History] Potassium Chloride 20 Meq [Klor-Con 20 MEQ] 20 meq PO DAILY 08/24/17 [History] Pravastatin Sodium [Pravachol] 20 mg PO DAILY 08/24/17 [History] Ramipril [Altace] 10 mg PO BID 08/24/17 [History] Rivaroxaban [Xarelto] 20 mg PO DAILY 08/24/17 [History] Cyclobenzaprine HCl [Flexeril] 10 mg PO BID 12/01/17 [History] Dronedarone HCl [Multaq] 400 mg PO BID 12/01/17 [History] Hx Tetanus, Diphtheria Vaccination/Date Given: Yes (UNKNOWN) Hx Influenza Vaccination/Date Given: Yes Hx Pneumococcal Vaccination/Date Given: Yes - Review of Systems Constitutional: No Fever, No Chills Eyes: No Symptoms Ears, Nose, & Throat: No Symptoms Respiratory: Dyspnea, No Cough Cardiac: Other (REPEATED SHOCKS FROM AICD) Abdominal/Gastrointestinal: No Abdominal Pain, No Nausea, No Vomiting, No Diarrhea Genitourinary Symptoms: No Dysuria Musculoskeletal: No Back Pain, No Neck Pain Skin: No Rash Neurological: No Dizziness, No Focal Weakness, No Sensory Changes Psychological: No Symptoms Endocrine: No Symptoms All Other Systems: Reviewed and Negative - Past Medical History Pertinent Past Medical History: Yes Neurological History: No Pertinent History ENT History: No Pertinent History Cardiac History: Arrhythmia, Hypertension, Other Respiratory History: COPD Endocrine Medical History: No Pertinent History Musculoskeletal History: Arthritis, Fractures GI Medical History: Hepatitis History: No Pertinent History Psycho-Social History: Anxiety, Depression Male Reproductive Disorders: No Pertinent History Other Medical History: HAS Defibrillator ON LEFT CHEST due to hypertrophic cardiomyopathy - Past Surgical History Past Surgical History: Yes Neuro Surgical History: No Pertinent History Cardiac: Pacemaker Respiratory: No Pertinent History Gastrointestinal: No Pertinent History Genitourinary: No Pertinent History Musculoskeletal: Joint Replacement Male Surgical History: No Pertinent History Other Surgical History: states pacemaker x 3 - Social History Smoking Status: Never smoker Exposure to second hand smoke: No Alcohol Use: None Drug Use: none Patient Lives Alone: No Significant Family History: heart disease, hypertension - Nursing Vital Signs Nursing Vital Signs: Initial Vital Signs Pulse Rate 161 H 02/04/18 21:18 Respiratory Rate 22 02/04/18 21:18 Blood Pressure 166/103 02/04/18 21:18 O2 Sat by Pulse Oximetry 99 02/04/18 21:18 Pain Scale Pain Intensity 0 - Physical Exam General Appearance: mild distress Eye Exam: PERRL/EOMI, eyes nml inspection Ears, Nose, Throat Exam: normal ENT inspection, TMs normal, pharynx normal, moist mucous membranes Neck Exam: normal inspection, non-tender, supple, full range of motion Respiratory Exam: normal breath sounds, lungs clear, No respiratory distress Cardiovascular Exam: tachycardia Gastrointestinal/Abdomen Exam: soft, normal bowel sounds, No tenderness, No mass Back Exam: normal inspection, normal range of motion, No CVA tenderness, No vertebral tenderness Extremity Exam: normal inspection, normal range of motion, pelvis stable Neurologic Exam: alert, oriented x 3, cooperative, clinical researcher II-XII nml as tested, normal mood/affect, nml cerebellar function, nml station & gait, sensation nml, No motor deficits Skin Exam: normal color, warm, dry, No rash Lymphatic Exam: No adenopathy SpO2 Interpretation: normal (((%) SpO2: 99 Oxygen Delivery: Room Air - Course Nursing assessment & vital signs reviewed: Yes EKG Interpreted by Me: RATE (201bpm), A-fib, Other (EKG: Atrial fibrillation rapid response 201 bpm, left axis deviation, rate related changes, no acute ST or T wave changes) - Radiology Exams Chest X-ray Interpretation: Interpreted by me, Other (cardiac pacemaker in place no acute disease process noted) Ordered Tests: Active Orders 24 hr Category Date Time Status Recording Engineer STAT Care 02/04/18 21:26 Active EKG-ER Only STAT Care 02/04/18 21:25 Active IV Insertion STAT Care 02/04/18 21:25 Active CHEST 1 VIEW (PORTABLE) Stat Exams 02/04/18 21:26 Ordered CBC W DIFF Stat Lab 02/04/18 21:40 Completed CMP Stat Lab 02/04/18 21:40 Completed Manual Differential NC Stat Lab 02/04/18 21:40 Completed PROTIME WITH INR Stat Lab 02/04/18 21:40 Completed PTT Stat Lab 02/04/18 21:40 Completed TROPONIN Q3H Lab 02/04/18 21:40 Completed TROPONIN Q3H Lab 02/05/18 00:30 Ordered TROPONIN Q3H Lab 02/05/18 03:30 Ordered TROPONIN Q3H Lab 02/05/18 06:30 Ordered TROPONIN Q3H Lab 02/05/18 09:30 Ordered Medication Summary Generic Name Dose Route Start Last Admin Trade Name Freq PRN Reason Stop Dose Admin Sodium Chloride 1,000 mls @ 100 mls/hr 02/04/18 21:30 02/04/18 21:46 Sodium Chloride 0.9% 1000 Ml IV 03/06/18 21:29 100 mls/hr .Q10H PEPPER Administration Diltiazem HCl 100 mls @ 10 mls/hr 02/04/18 21:37 02/04/18 22:10 Cardizem Drip 100 Mg/100 Ml D5w IV 03/06/18 21:36 15 mg/hr .Q10H PRN 15 mls/hr HEART RATE/ A-FIB Titration Protocol 10 MG/HR Discontinued Medications Generic Name Dose Route Start Last Admin Trade Name Freq PRN Reason Stop Dose Admin Diltiazem HCl 20 mg 02/04/18 21:27 02/04/18 21:36 Cardizem Iv 50 Mg/10 Ml IV 02/04/18 21:28 20 mg STAT ONE Administration Diltiazem HCl Confirm 02/04/18 21:27 Cardizem Iv 50 Mg/10 Ml Administered 02/04/18 21:28 Dose 50 mg IV .STK-MED ONE Diltiazem HCl 20 mg 02/04/18 21:57 02/04/18 21:58 Cardizem Iv 50 Mg/10 Ml IV 02/04/18 21:58 20 mg STAT ONE Administration Diltiazem HCl Confirm 02/04/18 22:00 Cardizem Iv 50 Mg/10 Ml Administered 02/04/18 22:01 Dose 50 mg IV .STK-MED ONE Diltiazem HCl Confirm 02/04/18 21:28 Cardizem Drip 100 Mg/100 Ml D5w Administered 02/04/18 21:29 Dose 100 mls @ ud IV .STK-MED ONE Potassium Chloride 40 meq 02/04/18 22:59 02/04/18 23:01 Klor Con 10 Meq PO 02/04/18 23:00 40 meq STAT ONE Administration Potassium Chloride Confirm 02/04/18 23:00 Klor Con 10 Meq Administered 02/04/18 23:01 Dose 40 meq PO .STK-MED ONE Lab/Rad Data: Laboratory Result Diagrams 02/04/18 21:40 02/04/18 21:40 Laboratory Results 02/04/18 02/04/18 02/04/18 Range/Units 21:40 21:40 21:40 WBC (4.0-10.5) K/mm3 RBC (4.1-5.6) M/mm3 Hgb (12.5-18.0) gm/dl Hct (42-50) % MCV (78-100) fl MCH (26-32) pg MCHC (32-36) g/dl RDW (11.5-14.0) % Plt Count (150-450) K/mm3 MPV (6-9.5) fl Absolute Granulocytes (1.4-6.9) PT 12.6 (8.83-12.87) SECONDS INR 1.10 (0.8-3.0) APTT 36.1 (24.1-36.1) SECONDS Sodium 143 (137-145) mmol/L Potassium 3.0 L (3.5-5.1) mmol/L Chloride 104 (98-107) mmol/L Carbon Dioxide 24 (22-30) mmol/L Anion Gap 17.9 H (5-15) MEQ/L BUN 9 (9-20) mg/dL Creatinine 0.87 (0.66-1.25) mg/dL Estimated GFR > 60.0 ML/MIN Glucose 162 H (74-106) mg/dL Calcium 9.8 (8.4-10.2) mg/dL Total Bilirubin 1.00 (0.2-1.3) mg/dL AST 50 (17-59) U/L ALT 64 H (0-50) U/L Alkaline Phosphatase 117 (38-126) U/L Troponin I 0.092 H* (0.000-0.034) ng/mL Serum Total Protein 9.0 H (6.3-8.2) g/dL Albumin 4.9 (3.5-5.0) g/dL 02/04/18 Range/Units 21:40 WBC 12.9 H (4.0-10.5) K/mm3 RBC 5.40 (4.1-5.6) M/mm3 Hgb 17.5 (12.5-18.0) gm/dl Hct 49.0 (42-50) % MCV 90.7 (78-100) fl MCH 32.4 H (26-32) pg MCHC 35.7 (32-36) g/dl RDW 13.5 (11.5-14.0) % Plt Count 243 (150-450) K/mm3 MPV 9.9 H (6-9.5) fl Absolute Granulocytes 5.80 (1.4-6.9) PT (8.83-12.87) SECONDS INR (0.8-3.0) APTT (24.1-36.1) SECONDS Sodium (137-145) mmol/L Potassium (3.5-5.1) mmol/L Chloride (98-107) mmol/L Carbon Dioxide (22-30) mmol/L Anion Gap (5-15) MEQ/L BUN (9-20) mg/dL Creatinine (0.66-1.25) mg/dL Estimated GFR ML/MIN Glucose (74-106) mg/dL Calcium (8.4-10.2) mg/dL Total Bilirubin (0.2-1.3) mg/dL AST (17-59) U/L ALT (0-50) U/L Alkaline Phosphatase (38-126) U/L Troponin I (0.000-0.034) ng/mL Serum Total Protein (6.3-8.2) g/dL Albumin (3.5-5.0) g/dL - Progress Progress: improved Progress Note: 02/04/18 21:58 This is a 62-year-old white male with history of atrial fibrillation high blood pressure, arrhythmia, COPD, arthritis, hepatitis, anxiety, depression who has an automatic internal cardiac defibrillator and pacer. Patient arrives with complaint of multiple shocks approximately 30 minutes to 1 hour prior to arrival which began after he was mowing his lawn. Medics were summoned a noted that the patient was having as many as 5 shocks between the time they were picking him up to arriving into the emergency room. Patient arrives with a heart rate of 201 bpm atrial fibrillation with rapid response on the EKG. Patient's labs including CBC CMP troponin PT PTT are ordered Patient is started on normal saline 100 mL per hour. Patient is given an initial bolus of 20 mg of Cardizem with a 10 mg per hour drip ordered. I have contacted Dr. Rodriguez, , the patient's cardiac physician. I have discussed prescribed the patient's condition he is still running heart rates between 150 and 1 70 bpm his blood pressure is running approximately 147/ 113. Planning on giving the patient is second bolus of Cardizem 20 mg IV. Awaiting further labs. Dr. Rodriguez is agreeable with this. He does state that the patient needs to hace rete control, he does state the patient has hypertrophic cardiomyopathy and that is why his internal defibrillator has been placed. He does state that the patient tends to run high on his troponin he has had a recent stress test which is low looked reasonable. Will give patient second bolus continue Cardizem drip, awake labs and discuss case again with Dr. Rodriguez and/or Dr. Camargo when labs are available and patient' s rate has been better controlled. Patient is on Xaralto, he is not having chest pain other than with shocks when his defibrillator was going off. 02/04/18 22:07 Patient was given aspirin 324 mg by medics prior to arrival. Patient running rates in the high 130s to high 140s. I've contacted Dr. Rodriguez he states he feels like the heart rate will come down with Cardizem drip does not want amiodarone at this time. The patient and his family are requesting transfer to [facility] if admitted. Patient's troponin and chemistry are pending. Apparently needed to be redrawn. Patient's CBC white count 12.9 hemoglobin 17.5 hematocrit 49 platelets 243. Patient is stable and in no acute pain. Dr. Rodriguez recommended that I contacted transfer center for [facility]. I contacted Dr. Reveles through [facility] one call. I've discussed the patient's EKG findings chest x-ray CBC clinical course and physical examination. He has accepted the patient for transfer. 02/04/18 22:47 02/04/18 23:01 Notified by lab that patient's potassium is 3.0 Patient's troponin 0.093, as stated earlier that the patient runs high on the troponin. He has been recently evaluated by Dr. Adams and the patient is noted to have hypertrophic cardiomyopathy but otherwise came out okay on cardiac evaluation. - Departure Time of Disposition: 22:51 Departure Disposition: Transfer ([facility]) Clinical Impression: Atrial fibrillation with rapid ventricular response Condition: Fair Critical Care Time: Yes Critical Care Time(excluding separately billable procedures): 30-74 minutes Referrals: RENETTA CAMARGO [Primary Care Provider] -
[2018-02-04] MEDS ORDERED: CARDIZEM DRIP 100 MG/100 ML D5W 100 ML IV PRN (21:37)
[2018-02-04] MEDS ORDERED: Sodium Chloride 0.9% 1000 ML 1,000 ML ONE (21:44)
[2018-02-04 21:46] LABS: Hemoglobin 17.5 gm/dl (12.5-18.0); Mean Cell Volume 90.7 fl (78-100); Mean Corpuscular Hemoglobin 32.4 pg (26-32); Mean Corpuscular Hgb Concent. 35.7 g/dl (32-36); Mean Platelet Volume 9.9 fl (6-9.5); Platelet Count 243 K/mm3 (150-450); Red Cell Distribution Width 13.5 % (11.5-14.0); White Blood Count 12.9 K/mm3 (4.0-10.5)
[2018-02-04 22:43] LABS: PTT 36.1 SECONDS (24.1-36.1)
[2018-02-04 22:46] LABS: ALBUMIN 4.9 g/dL (3.5-5.0); ALKALINE PHOSPHATASE 117 U/L (38-126); ANION GAP 17.9 MEQ/L (5-15); BLOOD UREA NITROGEN 9 mg/dL (9-20); CHLORIDE 104 mmol/L (98-107); Calcium 9.8 mg/dL (8.4-10.2); Carbon Dioxide 24 mmol/L (22-30); Creatinine 1 0.87 mg/dL (0.66-1.25); Glucose 162 mg/dL (74-106); SGOT/AST 50 U/L (17-59); SGPT/ALT 64 U/L (0-50); SODIUM 143 mmol/L (137-145)
[2018-02-04 22:52] VITALS: O2SAT 99
[2018-02-04 22:53] LABS: INR 1.1 (0.8-3.0)
[2018-02-04] MEDS ORDERED: Klor Con 10 MEQ PO ONE ×2 (22:59→23:00)
[2018-02-04 23:18] VITALS: BP 138/103; PULSE 144
[2018-02-05 00:05] LABS: Basophil 1 % (0.0-1.0); Eosinophil 1 % (0.00-3.0); Lymphocytes 35 % (24-44); Monocyte 11 % (0.0-12.0); Neutrophils 52 % (36.-66.); Platelet Estimate NORMAL (NORMAL); Total Cells Counted 100
--- NOTE | 2018-02-05 08:45 | XRAY ---
Indication: Tachycardia. Comparison: August 25, 2017. Portable chest again demonstrates normal heart and lungs with left-sided AICD. Bony thorax intact. No new/acute findings.
== END 2018-02-04 23:31 | disposition short-term general hospital (02) ==
LOC: ED 21:17
DX: I49.01 Ventricular fibrillation (principal); I10 Essential (primary) hypertension; J44.9 Chronic obstructive pulmonary disease, unspecified; F41.9 Anxiety disorder, unspecified; Z95.810 Presence of automatic (implantable) cardiac defibrillator; K75.9 Inflammatory liver disease, unspecified; M19.90 Unspecified osteoarthritis, unspecified site; Z79.899 Other long term (current) drug therapy
CPT/HCPCS: 36000; 36415; 71045; 80053; 84484; 85025; 85610; 85730; 93005; 93041; 96365; 96366; 96374; 99285; A9270-GY

== ENCOUNTER 2019-01-02 21:49 | Inpatient (IN) | payer MEDICARE ==
--- NOTE | 2019-01-02 22:01 | ERPHSYRPT ---
- History of Present Illness Time Seen by Provider: 01/02/19 21:58 Historian: patient Exam Limitations: no limitations Physician History: sudden onset of abd pain and sweating , prior heart hx , has ID no CP at this time ; tender lower abd no mass Timing/Duration: today Activities at Onset: none Quality: sharpness, stabbing Abdominal Pain Onset Location: generalized abdomen Pain Radiation: no radiation Severity of Pain-Max: moderate Severity of Pain-Current: moderate Modifying Factors: Improves With: nothing Associated Symptoms: fever/chills, nausea, vomiting Previous symptoms: no prior history Allergies/Adverse Reactions: codeine [Codeine] Allergy (Verified 08/24/17 12:11) Hives pt states hives are quick onset Home Medications: Escitalopram Oxalate 10 mg [Lexapro 10 MG] 10 mg PO DAILY 08/24/17 [History] Gabapentin 300 mg PO TID 08/24/17 [History] Ipratropium/Albuterol Sulfate [Combivent Inhaler] 14.7 gm IH BIDPRN PRN [History] Metoprolol Succinate 50 mg [Toprol Xl 50 MG] 50 mg PO BID 08/24/17 [ History] Nitroglycerin 0.4 mg (Ed) [Nitrostat 0.4 MG (ED)] 0.4 mg SL UD PRN [History] Pantoprazole Sodium 40 mg PO DAILY 08/24/17 [History] Potassium Chloride 20 Meq [Klor-Con 20 MEQ] 20 meq PO DAILY 08/24/17 [History] Pravastatin Sodium [Pravachol] 20 mg PO DAILY 08/24/17 [History] Ramipril [Altace] 10 mg PO BID 08/24/17 [History] Rivaroxaban [Xarelto] 20 mg PO DAILY 08/24/17 [History] Cyclobenzaprine HCl [Flexeril] 10 mg PO BID 12/01/17 [History] Dronedarone HCl [Multaq] 400 mg PO BID 12/01/17 [History] Hx Tetanus, Diphtheria Vaccination/Date Given: Yes (UNKNOWN) Hx Influenza Vaccination/Date Given: Yes Hx Pneumococcal Vaccination/Date Given: Yes - Review of Systems Constitutional: Chills, No Fever Eyes: No Symptoms Ears, Nose, & Throat: No Symptoms Respiratory: No Cough, No Dyspnea Cardiac: No Chest Pain, No Edema, No Syncope Abdominal/Gastrointestinal: Abdominal Pain, Nausea, Vomiting, No Diarrhea Genitourinary Symptoms: No Dysuria Musculoskeletal: No Back Pain, No Neck Pain Skin: No Rash Neurological: No Dizziness, No Focal Weakness, No Sensory Changes Psychological: No Symptoms Endocrine: No Symptoms All Other Systems: Reviewed and Negative - Past Medical History Pertinent Past Medical History: Yes Neurological History: No Pertinent History ENT History: No Pertinent History Cardiac History: Arrhythmia, Hypertension, Other Respiratory History: COPD Endocrine Medical History: No Pertinent History Musculoskeletal History: Arthritis, Fractures GI Medical History: Hepatitis History: No Pertinent History Psycho-Social History: Anxiety, Depression Male Reproductive Disorders: No Pertinent History Other Medical History: HAS Defibrillator ON LEFT CHEST due to hypertrophic cardiomyopathy - Past Surgical History Past Surgical History: Yes Neuro Surgical History: No Pertinent History Cardiac: Pacemaker Respiratory: No Pertinent History Gastrointestinal: No Pertinent History Genitourinary: No Pertinent History Musculoskeletal: Joint Replacement Male Surgical History: No Pertinent History Other Surgical History: states pacemaker x 3 - Social History Smoking Status: Never smoker Exposure to second hand smoke: No Alcohol Use: None Drug Use: none Patient Lives Alone: No Significant Family History: heart disease, hypertension - Nursing Vital Signs Nursing Vital Signs: Initial Vital Signs Temperature 97.5 F 01/02/19 22:11 Respiratory Rate 20 01/02/19 22:11 Blood Pressure 131/97 01/02/19 22:11 O2 Sat by Pulse Oximetry 93 L 01/02/19 22:11 Pain Scale Pain Intensity 10 - Physical Exam General Appearance: no apparent distress, alert Eye Exam: PERRL/EOMI, eyes nml inspection Ears, Nose, Throat Exam: normal ENT inspection, pharynx normal, moist mucous membranes Neck Exam: normal inspection, non-tender, supple, full range of motion Respiratory Exam: normal breath sounds, lungs clear, No respiratory distress Cardiovascular Exam: regular rate/rhythm, normal heart sounds Gastrointestinal/Abdomen Exam: soft, No tenderness, No mass Back Exam: normal inspection, normal range of motion, No CVA tenderness, No vertebral tenderness Extremity Exam: normal inspection, normal range of motion, pelvis stable Neurologic Exam: alert, oriented x 3, cooperative, normal mood/affect, nml cerebellar function, sensation nml, No motor deficits Skin Exam: normal color, warm, dry - Course Nursing assessment & vital signs reviewed: Yes EKG Interpreted by Me: Sinus Rhythm, Left [place] Deviation, LAFB, Right Bundle Branch Block, Non-specific ST Changes - CT Exams Abdomen/Pelvis CT Interpretation: Tele-radiologist Report, Other (stool with dilated colon) Ordered Tests: Active Orders 24 hr Category Date Time Status EKG-ER Only STAT Care 01/02/19 22:02 Active IV Insertion STAT Care 01/02/19 22:02 Active NPO (ED) STAT Care 01/02/19 22:02 Active ABDOMEN AND PELVIS W/0 CONTRAS [CT] Stat Exams 01/02/19 22:02 Taken AMYLASE Stat Lab 01/02/19 23:05 Completed CBC W DIFF Stat Lab 01/02/19 23:05 Completed CMP Stat Lab 01/02/19 23:05 Completed LIPASE Stat Lab 01/02/19 23:05 Completed Lactic Acid Stat Lab 01/02/19 23:27 Completed Lactic Acid Stat Lab 01/03/19 01:33 Ordered TROPONIN Q3H Lab 01/02/19 23:05 Completed TROPONIN Q3H Lab 01/03/19 01:15 Ordered TROPONIN Q3H Lab 01/03/19 04:15 Ordered TROPONIN Q3H Lab 01/03/19 07:15 Ordered TROPONIN Q3H Lab 01/03/19 10:15 Ordered UA W/RFX UR CULTURE Stat Lab 01/02/19 22:02 Uncollected Medication Summary Generic Name Dose Route Start Last Admin Trade Name Freq PRN Reason Stop Dose Admin Levofloxacin/Dextrose 750 mg in 150 mls @ 100 mls/hr 01/03/19 01:37 Levofloxacin 750mg/150ml D5w IV 01/03/19 03:06 STAT STA Metronidazole 500 mg in 100 mls @ 200 mls/hr 01/03/19 01:38 Flagyl 500 Mg Ivpb IV 01/03/19 02:07 STAT STA Discontinued Medications Generic Name Dose Route Start Last Admin Trade Name Freq PRN Reason Stop Dose Admin Famotidine 20 mg 01/02/19 22:02 01/02/19 22:38 Pepcid 20 Mg Vial IV 01/02/19 22:03 20 mg STAT ONE Administration Famotidine Confirm 01/02/19 22:33 Pepcid 20 Mg Vial Administered 01/02/19 22:34 Dose 20 mg IV .STK-MED ONE Hydromorphone HCl 1 mg 01/02/19 22:02 01/02/19 22:39 Hydromorphone 1 Mg/Ml Ampule IV 01/02/19 22:03 1 mg STAT ONE Administration Hydromorphone HCl Confirm 01/02/19 22:33 Hydromorphone 1 Mg/Ml Ampule Administered 01/02/19 22:34 Dose 1 mg .ROUTE .STK-MED ONE Sodium Chloride 1,000 mls @ 999 mls/hr 01/02/19 22:02 01/02/19 22:39 Sodium Chloride 0.9% 1000 Ml IV 01/02/19 23:02 999 mls/hr .Q1H1M STA Administration Sodium Chloride Confirm 01/02/19 22:33 Sodium Chloride 0.9% 1000 Ml Administered 01/02/19 22:34 Dose 1,000 mls @ ud .ROUTE .STK-MED ONE Ondansetron HCl 4 mg 01/02/19 22:02 01/02/19 22:39 Zofran 4 Mg/2 Ml Vial IV 01/02/19 22:03 4 mg STAT ONE Administration Ondansetron HCl Confirm 01/02/19 22:33 Zofran 4 Mg/2 Ml Vial Administered 01/02/19 22:34 Dose 4 mg .ROUTE .STK-MED ONE Pantoprazole Sodium 40 mg 01/02/19 22:02 01/02/19 22:38 Protonix 40 Mg Iv IV 01/02/19 22:03 40 mg STAT ONE Administration Pantoprazole Sodium Confirm 01/02/19 22:33 Protonix 40 Mg Iv Administered 01/02/19 22:34 Dose 40 mg IV .STK-MED ONE Lab/Rad Data: Laboratory Result Diagrams 01/02/19 23:05 01/02/19 23:05 Laboratory Results 01/02/19 01/02/19 01/02/19 Range/Units 23:27 23:05 23:05 WBC (4.0-10.5) K/mm3 RBC (4.1-5.6) M/mm3 Hgb (12.5-18.0) gm/dl Hct (42-50) % MCV (78-100) fl MCH (26-32) pg MCHC (32-36) g/dl RDW (11.5-14.0) % Plt Count (150-450) K/mm3 MPV (6-9.5) fl Gran % (36.0-66.0) % Eos # (Auto) (0-0.5) Absolute Lymphs (auto) (1.0-4.6) Absolute Monos (auto) (0.0-1.3) Lymphocytes % (24.0-44.0) % Monocytes % (0.0-12.0) % Eosinophils % (0.00-5.0) % Basophils % (0.0-0.4) % Absolute Granulocytes (1.4-6.9) Basophils # (0-0.4) Sodium 141 (137-145) mmol/L Potassium 3.7 (3.5-5.1) mmol/L Chloride 105 (98-107) mmol/L Carbon Dioxide 23 (22-30) mmol/L Anion Gap 16.4 H (5-15) MEQ/L BUN 20 (9-20) mg/dL Creatinine 1.27 H (0.66-1.25) mg/dL Estimated GFR > 60.0 ML/MIN Glucose 124 H (74-106) mg/dL Lactic Acid 1.9 (0.4-2.0) Calcium 10.6 H (8.4-10.2) mg/dL Total Bilirubin 0.60 (0.2-1.3) mg/dL AST 38 (17-59) U/L ALT 45 (0-50) U/L Alkaline Phosphatase 101 (38-126) U/L Troponin I < 0.012 (0.000-0.034) ng/mL Serum Total Protein 8.3 H (6.3-8.2) g/dL Albumin 4.5 (3.5-5.0) g/dL Amylase 326 H (30-110) U/L Lipase 48 (23-300) U/L 01/02/ Range/Units 23:05 WBC 13.4 H (4.0-10.5) K/mm3 RBC 4.52 (4.1-5.6) M/mm3 Hgb 14.7 (12.5-18.0) gm/dl Hct 43.6 (42-50) % MCV 96.5 (78-100) fl MCH 32.5 H (26-32) pg MCHC 33.7 (32-36) g/dl RDW 13.7 (11.5-14.0) % Plt Count 270 (150-450) K/mm3 MPV 10.5 H (6-9.5) fl Gran % 53.8 (36.0-66.0) % Eos # (Auto) 0.34 (0-0.5) Absolute Lymphs (auto) 4.20 (1.0-4.6) Absolute Monos (auto) 1.62 H (0.0-1.3) Lymphocytes % 31.5 (24.0-44.0) % Monocytes % 12.1 H (0.0-12.0) % Eosinophils % 2.5 (0.00-5.0) % Basophils % 0.1 (0.0-0.4) % Absolute Granulocytes 7.17 H (1.4-6.9) Basophils # 0.02 (0-0.4) Sodium (137-145) mmol/L Potassium (3.5-5.1) mmol/L Chloride (98-107) mmol/L Carbon Dioxide (22-30) mmol/L Anion Gap (5-15) MEQ/L BUN (9-20) mg/dL Creatinine (0.66-1.25) mg/dL Estimated GFR ML/MIN Glucose (74-106) mg/dL Lactic Acid (0.4-2.0) Calcium (8.4-10.2) mg/dL Total Bilirubin (0.2-1.3) mg/dL AST (17-59) U/L ALT (0-50) U/L Alkaline Phosphatase (38-126) U/L Troponin I (0.000-0.034) ng/mL Serum Total Protein (6.3-8.2) g/dL Albumin (3.5-5.0) g/dL Amylase (30-110) U/L Lipase (23-300) U/L - Progress Progress: unchanged, re-examined Progress Note: 01/03/19 01:58 discussed with pt and Dr. Silva and all agree best to bring pt in on obs and start antibiotics Counseled pt/family regarding: lab results, diagnosis, need for follow-up, rad results - Departure Departure Disposition: Observation Clinical Impression: Intractable abdominal pain Condition: Good Critical Care Time: No Referrals: RENETTA CAMARGO [Primary Care Provider] -
[2019-01-02] MEDS ORDERED: Hydromorphone 1 mg/ml Ampule IV ONE (22:02)
[2019-01-02] MEDS ORDERED: PROTONIX 40 MG IV IV ONE ×2 (22:02→22:33)
[2019-01-02] MEDS ORDERED: Zofran 4 MG/2 ML VIAL IV ONE (22:02)
[2019-01-02] MEDS ORDERED: Pepcid 20 MG VIAL IV ONE ×2 (22:02→22:33)
[2019-01-02] MEDS ORDERED: Sodium Chloride 0.9% 1000 ML 1,000 ML IV STA (22:02)
[2019-01-02] MEDS ORDERED: Sodium Chloride 0.9% 1000 ML 1,000 ML ONE (22:33)
[2019-01-02] MEDS ORDERED: Zofran 4 MG/2 ML VIAL ONE (22:33)
[2019-01-02] MEDS ORDERED: Hydromorphone 1 mg/ml Ampule ONE (22:33)
[2019-01-02 23:01] LABS: BASOPHIL % 0.1 % (0.0-0.4); Basophil (Absolute #) 0.02 (0-0.4); Eosinophil % 2.5 % (0.00-5.0); Eosinophil (Absolute #) 0.34 (0-0.5); Granulocyte Absolute (ANC) 7.17 (1.4-6.9); Granulocytes % 53.8 % (36.0-66.0); Hematocrit 43.6 % (42-50); Hemoglobin 14.7 gm/dl (12.5-18.0); Lymphocytes % 31.5 % (24.0-44.0); Mean Cell Volume 96.5 fl (78-100); Mean Corpuscular Hemoglobin 32.5 pg (26-32); Mean Corpuscular Hgb Concent. 33.7 g/dl (32-36); Mean Platelet Volume 10.5 fl (6-9.5); Monocyte (Absolute #) 1.62 (0.0-1.3); Monocytes % 12.1 % (0.0-12.0); Platelet Count 270 K/mm3 (150-450); Red Blood Count 4.52 M/mm3 (4.1-5.6); Red Cell Distribution Width 13.7 % (11.5-14.0); White Blood Count 13.4 K/mm3 (4.0-10.5)
[2019-01-02 23:27] LABS: ALBUMIN 4.5 g/dL (3.5-5.0); ALKALINE PHOSPHATASE 101 U/L (38-126); AMYLASE 326 U/L (30-110); ANION GAP 16.4 MEQ/L (5-15); BLOOD UREA NITROGEN 20 mg/dL (9-20); CHLORIDE 105 mmol/L (98-107); Calcium 10.6 mg/dL (8.4-10.2); Carbon Dioxide 23 mmol/L (22-30); Creatinine 1 1.27 mg/dL (0.66-1.25); Glucose 124 mg/dL (74-106); LIPASE 48 U/L (23-300); Potassium 3.7 mmol/L (3.5-5.1); SGOT/AST 38 U/L (17-59); SGPT/ALT 45 U/L (0-50); SODIUM 141 mmol/L (137-145); Total Protein 8.3 g/dL (6.3-8.2)
[2019-01-02 23:34] LABS: Lactic Acid 1.9 (0.4-2.0)
[2019-01-03] MEDS ORDERED: LEVOFLOXACIN 750MG/150ML D5W 750 MG/150 ML BAG IV STA (01:37)
[2019-01-03] MEDS ORDERED: FLAGYL 500 MG IVPB 500 MG/100 ML BAG IV STA (01:38)
[2019-01-03] MEDS ORDERED: FLAGYL 500 MG IVPB 500 MG/100 ML BAG IV ONE (02:05)
[2019-01-03] MEDS ORDERED: Sodium Chloride 0.9% 1000 ML 1,000 ML ONE (02:05)
[2019-01-03 03:11] LABS: Appearance CLEAR (CLEAR); Bilirubin NEGATIVE (NEGATIVE); Blood NEGATIVE Ery/ul (0-5); Glucose NEGATIVE (NEGATIVE); Ketones NEGATIVE (NEGATIVE); Leukocyte Esterase NEGATIVE (NEGATIVE); Mucus SLIGHT /HPF (NEGATIVE); Nitrite NEGATIVE (NEGATIVE); Protein,Urine Dip NEGATIVE (Negative); Specific Gravity 1.013 (1.005-1.025); Urobilinogen NEGATIVE mg/dL (0-1); WBC 0-2 /HPF (0-5)
[2019-01-03] MEDS ORDERED: LEVOFLOXACIN 750MG/150ML D5W 750 MG/150 ML BAG IV ONE (03:20)
[2019-01-03] MEDS ORDERED: DILAUDID 2 MG INJECTION IV PRN (04:18)
[2019-01-03] MEDS ORDERED: NovoLIN R SQ PRN (04:18)
[2019-01-03] MEDS ORDERED: Zofran 4 MG/2 ML VIAL IV PRN (04:18)
[2019-01-03] MEDS ORDERED: Phenergan 25 MG INJ IM PRN (04:18)
[2019-01-03] MEDS ORDERED: FLAGYL 500 MG IVPB 500 MG/100 ML BAG IV SCH (06:00)
--- NOTE | 2019-01-03 07:35 | XRAY ---
Indication: Lower abdomen pain. Nausea and emesis. Diaphoresis. Multiple contiguous axial images obtained through the abdomen and pelvis without contrast as ordered. Comparison: June 28, 2017. Lung bases demonstrates mild bibasilar dependent atelectasis. No infiltrate or effusion. Heart is borderline enlarged. New moderate-sized hiatal hernia. Noncontrasted stomach and bowel loops appear nonobstructed. Normal appendix. Colon is fluid and feces distended with fluid leveling favoring diarrhea. No free fluid/air. Stable left renal cortical cyst and enlarged prostate gland. Remaining liver, gallbladder, pancreas, spleen, adrenal glands, kidneys, ureters, and bladder appear unremarkable for noncontrast exam. Mild aortoiliac calcifications without AAA. Osseous structures intact again with mild degenerative changes throughout the spine and minimal T10/T11 wedging deformities. Stable bilateral fatty inguinal hernias. Impression: 1. Again fecal stasis with new diarrhea. 2. New hiatal hernia. Stable bilateral fatty inguinal hernias. 3. Stable left renal cyst and enlarged prostate gland. Comment: Preliminary interpretation was made by [facility]. No critical discrepancy. CT DI 23.54
[2019-01-03] MEDS ORDERED: NON-FORMULARY ITEM (Ipratropium/Albuterol Sulfate [Combivent Inhaler] 14.7 GM) IH PRN (08:58)
[2019-01-03] MEDS ORDERED: Nitrostat 0.4 MG (ED) SL PRN (08:58)
[2019-01-03] MEDS: D5W/0.45NS W/ 20mEq KCl 1000 ML 1,000 ML IV SCH ×2 (09:08→19:58)
[2019-01-03] MEDS: FLAGYL 500 MG IVPB 500 MG/100 ML BAG IV SCH ×3 (09:12→19:58)
[2019-01-03 09:13] LABS: Slide Review 1 YES
[2019-01-03] MEDS ORDERED: DUONEB 0.5-3 MG/3 ml Neb IH PRN (09:14)
[2019-01-03] MEDS: Pepcid 20 MG VIAL IV SCH ×2 (09:46→22:08)
[2019-01-03] MEDS: Flomax 0.4 MG PO SCH (09:47)
[2019-01-03] MEDS: Altace 5 MG PO SCH ×2 (09:47→22:29)
[2019-01-03] MEDS: NORVASC 5 MG PO SCH (09:48)
[2019-01-03] MEDS: NEURONTIN 300 MG PO SCH ×4 (09:48→22:08)
[2019-01-03] MEDS: Klor Con 10 MEQ PO SCH (09:48)
[2019-01-03] MEDS: Multaq 400 MG PO SCH ×2 (09:48→22:08)
[2019-01-03] MEDS: PLAVIX 75 MG Tablet PO SCH (09:49)
[2019-01-03] MEDS: Protonix 40MG Tablet PO SCH (09:49)
[2019-01-03] MEDS: XARELTO 10 MG TABLET PO SCH (09:49)
[2019-01-03] MEDS: Toprol Xl 50 MG PO SCH ×2 (09:49→22:29)
[2019-01-03] MEDS ORDERED: NON-FORMULARY ITEM (Ramipril [Altace] 10 MG) PO SCH (10:00)
[2019-01-03] MEDS ORDERED: NON-FORMULARY ITEM (Pravastatin Sodium [Pravachol] 20 MG) PO SCH (10:00)
[2019-01-03] MEDS ORDERED: NON-FORMULARY ITEM (Potassium Chloride 20 Meq [Klor-Con 20 Meq] 20 MEQ) PO SCH (10:00)
[2019-01-03] MEDS ORDERED: NON-FORMULARY ITEM (Rivaroxaban [Xarelto] 20 MG) PO SCH (10:00)
[2019-01-03] MEDS ORDERED: ADVAIR 250-50 DISKUS 14 DOSE IH SCH (10:00)
[2019-01-03] MEDS: Advair Hfa 115/21 Common canister IH SCH ×2 (17:47→18:01)
[2019-01-03] MEDS ORDERED: PROTONIX 40 MG IV IV SCH (22:00)
[2019-01-03] MEDS: LEVOFLOXACIN 750MG/150ML D5W 750 MG/150 ML BAG IV SCH (22:08)
[2019-01-03] MEDS: ZOCOR 20MG PO SCH (22:10)
[2019-01-04] MEDS: FLAGYL 500 MG IVPB 500 MG/100 ML BAG IV SCH ×4 (02:35→20:17)
[2019-01-04 06:33] LABS: BASOPHIL % 0.1 % (0.0-0.4); Basophil (Absolute #) 0.01 (0-0.4); Eosinophil % 1.6 % (0.00-5.0); Eosinophil (Absolute #) 0.19 (0-0.5); Granulocyte Absolute (ANC) 8.29 (1.4-6.9); Hematocrit 40.2 % (42-50); Hemoglobin 13.1 gm/dl (12.5-18.0); Lymphocyte (Absolute #) 1.76 (1.0-4.6); Lymphocytes % 14.9 % (24.0-44.0); Mean Cell Volume 99.3 fl (78-100); Mean Corpuscular Hemoglobin 32.3 pg (26-32); Mean Corpuscular Hgb Concent. 32.6 g/dl (32-36); Mean Platelet Volume 10.3 fl (6-9.5); Monocyte (Absolute #) 1.58 (0.0-1.3); Monocytes % 13.4 % (0.0-12.0); Platelet Count 186 K/mm3 (150-450); Red Blood Count 4.05 M/mm3 (4.1-5.6); Red Cell Distribution Width 14.1 % (11.5-14.0); White Blood Count 11.8 K/mm3 (4.0-10.5)
[2019-01-04] MEDS: Pepcid 20 MG VIAL IV SCH ×2 (06:48→21:16)
[2019-01-04] MEDS: DUONEB 0.5-3 MG/3 ml Neb IH SCH ×3 (07:00→19:38)
[2019-01-04 07:04] LABS: ALBUMIN 3.3 g/dL (3.5-5.0); ALKALINE PHOSPHATASE 78 U/L (38-126); ANION GAP 12.7 MEQ/L (5-15); BLOOD UREA NITROGEN 14 mg/dL (9-20); CHLORIDE 106 mmol/L (98-107); Calcium 8.7 mg/dL (8.4-10.2); Carbon Dioxide 26 mmol/L (22-30); Creatinine 1 0.91 mg/dL (0.66-1.25); Glucose 103 mg/dL (74-106); Potassium 4.2 mmol/L (3.5-5.1); SGOT/AST 28 U/L (17-59); SGPT/ALT 30 U/L (0-50); SODIUM 140 mmol/L (137-145); Total Protein 6.5 g/dL (6.3-8.2)
[2019-01-04] MEDS: Advair Hfa 115/21 Common canister IH SCH ×2 (07:45→20:08)
[2019-01-04] MEDS: NEURONTIN 300 MG PO SCH ×4 (09:31→20:17)
[2019-01-04] MEDS: PLAVIX 75 MG Tablet PO SCH (09:33)
[2019-01-04] MEDS: Flomax 0.4 MG PO SCH (09:34)
[2019-01-04] MEDS: NORVASC 5 MG PO SCH (09:34)
[2019-01-04] MEDS: Protonix 40MG Tablet PO SCH (09:34)
[2019-01-04] MEDS: Toprol Xl 50 MG PO SCH ×2 (09:36→21:15)
[2019-01-04] MEDS: Altace 5 MG PO SCH ×2 (09:36→21:15)
[2019-01-04] MEDS: Klor Con 10 MEQ PO SCH (09:37)
[2019-01-04] MEDS: Multaq 400 MG PO SCH ×2 (09:37→21:15)
[2019-01-04] MEDS: XARELTO 10 MG TABLET PO SCH (09:38)
[2019-01-04] MEDS: D5W/0.45NS W/ 20mEq KCl 1000 ML 1,000 ML IV SCH ×2 (09:41→20:18)
--- NOTE | 2019-01-04 10:46 | PCM.NOTE ---
Date and Time: 01/04/19 1040 Subjective Assessment: Pt still having abd pain, now 5/10, was 10/10 on admission. Pain in lower abd. C/o some subjective difficulty swallowing but able to karolina CLD just fine. Having diarrhea. - Review of Systems Constitutional: No Fever Abdominal/Gastrointestinal: Abdominal Pain, Diarrhea Objective Exam General Appearance: no apparent distress, obese Neurologic Exam: alert, cooperative Skin Exam: normal color, warm, dry, No rash Respiratory Exam: normal breath sounds, lungs clear, No crackles/rales, No rhonchi, No wheezing Cardiovascular Exam: regular rate/rhythm, normal heart sounds, No murmur Gastrointestinal/Abdomen Exam: soft, tenderness (LUQ, LLQ), No normal bowel sounds (BS + but hypoactive), No distention, No mass, No guarding, No rebound Extremity Exam: normal inspection, No pedal edema, No swelling Back Exam: normal inspection, No rash OBJECTIVE DATA Vital Signs: Vital Signs - 24 hr Temp Pulse Resp BP Pulse Ox 01/04/19 07:55 98.2 F 102 H 18 127/72 96 01/04/19 04:00 97.7 F 90 18 124/55 94 L 01/04/19 00:18 98.1 F 68 20 100/63 95 01/03/19 20:00 98.4 F 93 H 18 98/57 93 L 01/03/19 17:51 80 18 96 01/03/19 16:00 99.3 F 76 18 119/56 92 L 01/03/19 11:39 99.4 F 90 18 132/70 93 L Pain Assessment - Last Documented Pain Intensity 4 Pain Scale Used 0-10 Pain Scale Intake and Output: Intake & Output 01/01/19 01/02/19 01/03/19 01/04/19 11:59 11:59 11:59 11:59 Intake Total 0 3649 Output Total 400 Balance -400 3649 Weight 97.4 kg Lab Results: Lab Results-Last 24 Hours 01/03/19 01/04/19 01/04/19 Range/Units 05:08 06:29 06:29 WBC 11.8 H (4.0-10.5) K/mm3 RBC 4.05 L (4.1-5.6) M/mm3 Hgb 13.1 (12.5-18.0) gm/dl Hct 40.2 L (42-50) % MCV 99.3 (78-100) fl MCH 32.3 H (26-32) pg MCHC 32.6 (32-36) g/dl RDW 14.1 H (11.5-14.0) % Plt Count 186 (150-450) K/mm3 MPV 10.3 H (6-9.5) fl Gran % 70.0 H (36.0-66.0) % Eos # (Auto) 0.19 (0-0.5) Absolute Lymphs (auto) 1.76 (1.0-4.6) Absolute Monos (auto) 1.58 H (0.0-1.3) Lymphocytes % 14.9 L (24.0-44.0) % Monocytes % 13.4 H (0.0-12.0) % Eosinophils % 1.6 (0.00-5.0) % Basophils % 0.1 (0.0-0.4) % Absolute Granulocytes 8.29 H (1.4-6.9) Basophils # 0.01 (0-0.4) Sodium 140 (137-145) mmol/L Potassium 4.2 (3.5-5.1) mmol/L Chloride 106 (98-107) mmol/L Carbon Dioxide 26 (22-30) mmol/L Anion Gap 12.7 (5-15) MEQ/L BUN 14 (9-20) mg/dL Creatinine 0.91 (0.66-1.25) mg/dL Estimated GFR > 60.0 ML/MIN Glucose 103 (74-106) mg/dL Calcium 8.7 D (8.4-10.2) mg/dL Total Bilirubin 0.80 (0.2-1.3) mg/dL AST 28 (17-59) U/L ALT 30 (0-50) U/L Alkaline Phosphatase 78 (38-126) U/L Troponin I 0.013 (0.000-0.034) ng/mL Serum Total Protein 6.5 (6.3-8.2) g/dL Albumin 3.3 L (3.5-5.0) g/dL Radiology Exams: Radiology Procedures Category Date Time Status ABDOMEN AND PELVIS W/0 CONTRAS [CT] Stat Exams 01/02/19 22:02 Completed Assessment/Plan (1) Colitis Current Visit: Yes Status: Acute Assessment & Plan: On Levaquin and flagyl day #3. Doing better. Will increase diet to full liquid today. Code(s): K52.9 - NONINFECTIVE GASTROENTERITIS AND COLITIS, UNSPECIFIED (2) Diarrhea Current Visit: Yes Status: Acute Qualifiers: Diarrhea type: unspecified type Qualified Code(s): R19.7 - Diarrhea, unspecified Assessment & Plan: Will check for c. diff. Code(s): R19.7 - DIARRHEA, UNSPECIFIED (3) Coronary artery disease Current Visit: Yes Status: Acute Qualifiers: Coronary Disease-Associated Artery/Lesion type: [place] artery [place] vs. transplanted heart: [place] heart Associated angina: without angina Qualified Code(s): I25.10 - Atherosclerotic heart disease of [place] coronary artery without angina pectoris Assessment & Plan: stable here Code(s): I25.10 - ATHSCL HEART DISEASE OF [place] CORONARY ARTERY W/O ANG PCTRS (4) Hx of hepatic disease Current Visit: Yes Status: Acute Assessment & Plan: Hx Hep B and Hep C, per Dr. Okeefe' note was treated. Code(s): Z87.19 - PERSONAL HISTORY OF OTHER DISEASES OF THE DIGESTIVE SYSTEM (5) hx polysubstance abuse Current Visit: Yes Status: Acute Assessment & Plan: + for cocaine and alcohol in 2018. (6) Atrial fibrillation Current Visit: Yes Status: Chronic Qualifiers: Atrial fibrillation type: chronic Qualified Code(s): I48.2 - Chronic atrial fibrillation Assessment & Plan: stable Code(s): I48.91 - UNSPECIFIED ATRIAL FIBRILLATION (7) DVT prophylaxis Current Visit: Yes Status: Acute Assessment & Plan: Pt on xarelto. Code(s): Z29.9 - ENCOUNTER FOR PROPHYLACTIC MEASURES, UNSPECIFIED
[2019-01-04 12:28] LABS: Slide Review 1 YES
[2019-01-04 18:01] LABS: 027 TOX PROD PRESUMPTIVE NEGATIVE (NEGATIVE); TOXIGENIC C. DIFF ORG NEGATIVE (NEGATIVE)
[2019-01-04] MEDS: ZOCOR 20MG PO SCH (21:15)
[2019-01-04] MEDS: LEVOFLOXACIN 750MG/150ML D5W 750 MG/150 ML BAG IV SCH (21:15)
[2019-01-05] MEDS: FLAGYL 500 MG IVPB 500 MG/100 ML BAG IV SCH ×2 (02:47→08:14)
[2019-01-05] MEDS: DUONEB 0.5-3 MG/3 ml Neb IH SCH (07:28)
[2019-01-05 07:29] VITALS: BP 128/67; PULSE 72
[2019-01-05 07:35] VITALS: O2SAT 92
--- NOTE | 2019-01-05 08:09 | HP ---
CHIEF COMPLAINT: Abdominal pain, vomiting and diarrhea. HISTORY OF PRESENT ILLNESS: The patient is a 63 year-old white male patient who reports it has been a couple of days since his last bowel movement. He was out at a celebration with his family when he had a Dr. Gaines and began having problems with abdominal pain and vomiting. He presented himself to the emergency room and he was subsequently admitted to the hospital for abdominal pain on IV antibiotics of Levaquin and Flagyl. PAST MEDICAL/SURGICAL HISTORY: Significant for coronary artery disease, chronic obstructive pulmonary disease. He had stents and pacemaker. HOME MEDICATIONS: Lexapro 10 mg a day, Gabapentin 300 mg t.i.d., Combivent inhaler, Metoprolol 50 mg b.i.d., Nitro PRN, pantoprazole 40 mg a day, potassium 20 mEq a day, Pravastatin 20 mg a day, Altace 10 mg t.i.d., Xarelto 20 mg a day, Flexeril 10 mg b.i.d. and Multaq 400 mg b.i.d. ALLERGIES: CODEINE. PHYSICAL EXAMINATION: The patient's vital signs on admission showed temperature 97.5F, respiratory rate 20, blood pressure 131/97. O2 saturation 93% on room air. HEENT: Normocephalic, atraumatic. Pupils equal round reactive to light. Extraocular movements intact. Oropharynx is pink and moist. NECK: Supple without lymphadenopathy, thyromegaly or JVD. CHEST: Clear to auscultation. HEART: Regular rate and rhythm. ABDOMEN: Soft, tender left lower quadrant on palpation. No palpable masses. Bowel sounds are quiet. EXTREMITIES: Without cyanosis, clubbing or edema. NEUROLOGIC: The patient is alert and oriented x3. LAB DATA AND TESTS: CT scan showed fecal stasis and dilated bowel proximal to that with fluid present as well. The patient's troponin was less than 0.012. UA was normal with specific gravity 1.013. His metabolic panel showed a glucose of 124, BUN 20, creatinine 1.27. Electrolytes were normal. Liver enzymes were normal. Amylase was slightly elevated at 326, lactic acid 1.9. White blood cell count 13,400, hemoglobin 14.7, PLT count 270,000. ASSESSMENT: A patient with abdominal pain, fecal stasis and with dilated loops of colon. He is being admitted on gut rest other than he will be allowed to have clear liquids to take his medications with the clear liquids. He has been placed on IV fluids and antibiotics of Levaquin and Flagyl for possible diverticulitis.
[2019-01-05] MEDS: Flomax 0.4 MG PO SCH (08:15)
[2019-01-05] MEDS: Klor Con 10 MEQ PO SCH (08:15)
[2019-01-05] MEDS: Altace 5 MG PO SCH (08:15)
[2019-01-05] MEDS: Multaq 400 MG PO SCH (08:16)
[2019-01-05] MEDS: NORVASC 5 MG PO SCH (08:16)
[2019-01-05] MEDS: NEURONTIN 300 MG PO SCH (08:16)
[2019-01-05] MEDS: XARELTO 10 MG TABLET PO SCH (08:17)
[2019-01-05] MEDS: PLAVIX 75 MG Tablet PO SCH (08:17)
[2019-01-05] MEDS: Pepcid 20 MG VIAL IV SCH (08:17)
[2019-01-05] MEDS: Toprol Xl 50 MG PO SCH (08:17)
[2019-01-05] MEDS: Protonix 40MG Tablet PO SCH (08:17)
--- NOTE | 2019-01-05 08:55 | PCM.DCORD ---
- Discharge Discharge Date: 01/05/19 Disposition: Home, Self-Care Condition: Good Prescriptions: New Metronidazole 500 mg [Flagyl 500 MG] 500 mg PO QID #20 tablet levoFLOXacin [Levofloxacin] 750 mg PO DAILY #3 tablet Continue Rivaroxaban [Xarelto] 20 mg PO DAILY Pravastatin Sodium [Pravachol] 20 mg PO DAILY Potassium Chloride 20 Meq [Klor-Con 20 MEQ] 20 meq PO DAILY Pantoprazole Sodium 40 mg PO DAILY Nitroglycerin 0.4 mg (Ed) [Nitrostat 0.4 MG (ED)] 0.4 mg SL UD PRN PRN Reason: Pain Metoprolol Succinate 50 mg [Toprol Xl 50 MG] 50 mg PO BID Ipratropium/Albuterol Sulfate [Combivent Inhaler] 14.7 gm IH BIDPRN PRN PRN Reason: Shortness Of Breath/Wheezing Ramipril [Altace] 10 mg PO BID Dronedarone HCl [Multaq] 400 mg PO BID Cyclobenzaprine HCl [Flexeril] 10 mg PO BIDPRN PRN PRN Reason: Moderate Pain Clopidogrel Bisulfate [Clopidogrel] 75 mg PO DAILY Tamsulosin HCl 0.4 mg PO DAILY Fluticasone/Salmeterol Disc [Advair 250-50 Diskus 14 Dose] 2 puffs IH BID Gabapentin 600 mg PO QID Amlodipine Besylate 2.5 mg PO DAILY Follow up with: RENETTA CAMARGO [Primary Care Provider] - 1 Week
--- NOTE | 2019-01-07 08:27 | DS ---
DISCHARGE DIAGNOSES: 1) COLITIS. 2) CORONARY ARTERY DISEASE. DISCHARGE PHYSICAL EXAMINATION: VITALS: Temperature current 98.0F, temperature max 98.4F, heart rate 72 to 77, respiratory rate 20 to 24, blood pressure 128 to 132 over 67 to 79. Oxygen saturation 92 to 96% on room air. GENERAL: The patient is a pleasant talkative man sitting up in bed in no acute distress. CVS: He has a regular rate and rhythm. No murmurs, gallops or rubs. CHEST: Clear to auscultation bilaterally. No crackles or wheezes. ABDOMEN: Soft, nontender, nondistended with normal bowel sounds. No hepatosplenomegaly. EXTREMITIES: No clubbing, cyanosis or edema. SKIN: Warm, dry and intact. HOSPITAL COURSE: 1) COLITIS: He was started on IV metronidazole and levofloxacin. I have written scripts for him to continue with the metronidazole for six more days to complete a ten day course and three more days of levofloxacin. The patient reports his diarrhea was much improved. At the time of discharge, he had a Clostridium difficile that was negative and he had a CT scan showing fluid leveling consistent with diarrhea. He did not have any GI panels done and reports that his diarrhea was much improved and he wanted to go home. He was able to take a clear liquid diet without any problems. 2) CORONARY ARTERY DISEASE: He is being continued on his home medications. DISCHARGE MEDICATIONS: Please see the discharge order. DISPOSITION: The patient was discharged to home in fair condition to follow up with myself.
== END 2019-01-05 11:00 | disposition home or self-care (01) | DRG 392 ==
LOC: ED 21:49 → MED SURG 01-03 04:15 → OBSVTOIN 01-04 10:40
PROVIDERS: ADMIT Internal Medicine; ATTEND Internal Medicine
DX: K52.9 Noninfective gastroenteritis and colitis, unspecified (principal); R10.32 Left lower quadrant pain; R10.12 Left upper quadrant pain; I10 Essential (primary) hypertension; J44.9 Chronic obstructive pulmonary disease, unspecified; I25.10 Atherosclerotic heart disease of native coronary artery without angina pectoris; Z87.19 Personal history of other diseases of the digestive system; I48.91 Unspecified atrial fibrillation; Z79.899 Other long term (current) drug therapy; F14.11 Cocaine abuse, in remission; F10.11 Alcohol abuse, in remission; Z86.19 Personal history of other infectious and parasitic diseases
CPT/HCPCS: 36000; 36415; 74176; 80053; 81001; 82150; 83605; 83690; 84484; 85025; 87493; 93005; 93268; 94150; 94640; 94760; 96360; 96365; 96367; 96374; 96375; 99285; G0378; J1170; J1956; J2405; A9270-GY

== ENCOUNTER 2020-05-03 14:27 | Emergency (ER) | payer MEDICARE ==
--- NOTE | 2020-05-03 14:29 | ERPHSYRPT ---
- History of Present Illness Time Seen by Provider: 05/03/20 14:29 Source: patient Exam Limitations: no limitations Physician History: This is a 64-year-old white male who suffered a laceration to his right forearm approximately 12 days ago. He had the laceration site repaired at [facility] in [facility]. He was supposed to have the removed sutures removed approximately 8 to 10 days after the repair. He completed antibiotic therapy. He believes it was Keflex but is not 100% certain. Patient has had no fever no drainage from the site. Timing/Duration: day(s) (12) Quality: other (Mild redness at suture sites) Severity: mild Location: extremities (Right inner forearm) Associated Symptoms: denies symptoms Allergies/Adverse Reactions: codeine [Codeine] Allergy (Verified 05/03/20 14:45) Hives pt states hives are quick onset Home Medications: Ipratropium/Albuterol Sulfate [Combivent Inhaler] 14.7 gm IH BIDPRN PRN 08/24/17 [History] Metoprolol Succinate 50 mg [Toprol Xl 50 MG] 50 mg PO BID 08/24/17 [History] Nitroglycerin 0.4 mg (Ed) [Nitrostat 0.4 MG (ED)] 0.4 mg SL UD PRN 08/24/17 [History] Pantoprazole Sodium 40 mg PO DAILY 08/24/17 [History] Potassium Chloride 20 Meq [Klor-Con 20 MEQ] 20 meq PO DAILY 08/24/17 [History] Pravastatin Sodium [Pravachol] 20 mg PO DAILY 08/24/17 [History] Ramipril [Altace] 10 mg PO BID 08/24/17 [History] Rivaroxaban [Xarelto] 20 mg PO DAILY 08/24/17 [History] Cyclobenzaprine HCl [Flexeril] 10 mg PO BIDPRN PRN 12/01/17 [History] Dronedarone HCl [Multaq] 400 mg PO BID 12/01/17 [History] Amlodipine Besylate 2.5 mg PO DAILY 01/03/19 [History] Clopidogrel Bisulfate [Clopidogrel] 75 mg PO DAILY 01/03/19 [History] Fluticasone/Salmeterol Disc [Advair 250-50 Diskus 14 Dose] 2 puffs IH BID 01/03/19 [History] Gabapentin 600 mg PO QID 01/03/19 [History] Tamsulosin HCl 0.4 mg PO DAILY 01/03/19 [History] Hx Tetanus, Diphtheria Vaccination/Date Given: Yes (UNKNOWN) Hx Influenza Vaccination/Date Given: Yes Hx Pneumococcal Vaccination/Date Given: Yes Travel Risk - International Travel Have you traveled outside of the country in past 3 weeks: No - Coronavirus Screening Are you exhibiting any of the following symptoms?: No Close contact with a COVID-19 positive Pt in past 14-21 Days: No - Review of Systems Constitutional: No Symptoms Eyes: No Symptoms Ears, Nose, & Throat: No Symptoms Respiratory: No Symptoms Cardiac: No Symptoms Abdominal/Gastrointestinal: No Symptoms Genitourinary Symptoms: No Symptoms Musculoskeletal: No Symptoms Skin: Other (Redness along suture repair line at the suture sites) Neurological: No Symptoms Psychological: No Symptoms Endocrine: No Symptoms Hematologic/Lymphatic: No Symptoms Immunological/Allergic: No Symptoms All Other Systems: Reviewed and Negative - Past Medical History Pertinent Past Medical History: Yes Neurological History: No Pertinent History ENT History: No Pertinent History Cardiac History: Arrhythmia, Hypertension, Other Respiratory History: COPD Endocrine Medical History: No Pertinent History Musculoskeletal History: Arthritis, Fractures GI Medical History: Hepatitis History: No Pertinent History Psycho-Social History: Anxiety, Depression Male Reproductive Disorders: No Pertinent History Other Medical History: HAS Defibrillator/Pacemaker ON LEFT CHEST due to hypertrophic cardiomyopathy - Past Surgical History Past Surgical History: Yes Neuro Surgical History: No Pertinent History Cardiac: Internal Defibrillator, Pacemaker Respiratory: No Pertinent History Gastrointestinal: No Pertinent History Genitourinary: No Pertinent History Musculoskeletal: Joint Replacement Male Surgical History: No Pertinent History Other Surgical History: . - Social History Smoking Status: Never smoker Exposure to second hand smoke: No Alcohol Use: None Drug Use: none Patient Lives Alone: No Significant Family History: heart disease, hypertension - Nursing Vital Signs Nursing Vital Signs: Initial Vital Signs Temperature 98.1 F 05/03/20 14:35 Pulse Rate 65 05/03/20 14:35 Respiratory Rate 16 05/03/20 14:35 Blood Pressure 155/96 05/03/20 14:35 O2 Sat by Pulse Oximetry 99 05/03/20 14:35 Pain Scale Pain Intensity 0 - Physical Exam General Appearance: no apparent distress, alert Eye Exam: PERRL/EOMI, eyes nml inspection Ears, Nose, Throat Exam: normal ENT inspection, moist mucous membranes Neck Exam: normal inspection, non-tender, supple, full range of motion Respiratory Exam: No chest tenderness, No respiratory distress Gastrointestinal/Abdomen Exam: No tenderness Rectal Exam: not done Back Exam: normal inspection, normal range of motion, No CVA tenderness, No vertebral tenderness Extremity Exam: normal range of motion, pelvis stable Neurologic Exam: alert, oriented x 3, 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 There is redness along the suture line without drainage or odor.) Lymphatic Exam: No adenopathy SpO2 Interpretation: normal O2 Delivery: Room Air - Course Nursing assessment & vital signs reviewed: Yes - Progress Progress Note: 05/03/20 14:59 Medical decision making: This patient has had sutures in place for 12 days at his laceration repair site on the inner aspect of his right forearm. There is no odor and there is no drainage. There is redness at the suture sites. The plan is to clean the area with Hibiclens and dry. Then to clean the area with hydrogen peroxide and dry. Next is to place benzoin along the suture line to remove every third suture and then place 1/2 inch Steri-Strips across this. We will have him keep the area dry at home and after 24 hours he may wash the area with soap and water and blot dry. We will reevaluate him on 05/05/2020 and if appropriate, will remove the remainder of the sutures. We will place him on Bactrim DS as he was on Keflex last week. Counseled pt/family regarding: diagnosis, need for follow-up - Departure Departure Disposition: Home Clinical Impression: Visit for wound check, Visit for suture removal Condition: Stable Critical Care Time: No Referrals: STEPHANIE SIMS [Primary Care Provider] - Additional Instructions: Keep the area clean and dry. After 24 hours, may wash the site with soap and water. Blot dry and use a counseling department chair to dry the site. Return to the emergency department on 05/05/2020 for reevaluation and to have the remaining sutures removed if appropriate at the time of that evaluation. Take your medication as prescribed. Prescriptions: Smz/Tmp Ds Tablet [Bactrim Ds Tablet] 1 udtab PO BID #10 tablet
[2020-05-03] MEDS ORDERED: PEROXIDE 3% ONE (14:56)
[2020-05-03 15:28] VITALS: BP 145/88; PULSE 72; O2SAT 98
== END 2020-05-03 15:34 | disposition home or self-care (01) ==
LOC: ED 14:27
DX: Z48.02 Encounter for removal of sutures (principal)
CPT/HCPCS: G0463 ×2; 99283; A9270-GY

== ENCOUNTER 2020-05-05 10:32 | Emergency (ER) | payer MEDICARE ==
[2020-05-05 10:46] VITALS: O2SAT 98
--- NOTE | 2020-05-05 10:49 | ERPHSYRPT ---
- History of Present Illness Time Seen by Provider: 05/05/20 10:49 Source: patient Exam Limitations: no limitations Patient Subjective Stated Complaint: Pt here for suture removal in right forearm Triage Nursing Assessment: Pt in for suture removal, vitals wnl, denies pain, wound to right forearm appears to be healing well, swelling gone and redness going away Physician History: This is a right-handed 64-year-old white male who approximately 2 weeks ago suffered a laceration to his right forearm. It was repaired at a different facility. Patient returned a few days ago to have the wound evaluated because of redness. He had not had his sutures removed in 10 to 12 days. We evaluated him a few days ago and removed portion of his sutures and placed Steri-Strips. We put him on oral antibiotics. He returns today for wound evaluation and removal of the remainder of sutures if indicated. In addition, patient states he has no complaints of pain. Redness is improved. He states there is been no drainage. Severity: mild Location: extremities (Right forearm) Associated Symptoms: denies symptoms Allergies/Adverse Reactions: codeine [Codeine] Allergy (Verified 05/05/20 10:46) Hives pt states hives are quick onset Home Medications: Ipratropium/Albuterol Sulfate [Combivent Inhaler] 14.7 gm IH BIDPRN PRN 08/24/17 [History] Metoprolol Succinate 50 mg [Toprol Xl 50 MG] 50 mg PO BID 08/24/17 [History] Nitroglycerin 0.4 mg (Ed) [Nitrostat 0.4 MG (ED)] 0.4 mg SL UD PRN 08/24/17 [History] Pantoprazole Sodium 40 mg PO DAILY 08/24/17 [History] Potassium Chloride 20 Meq [Klor-Con 20 MEQ] 20 meq PO DAILY 08/24/17 [History] Pravastatin Sodium [Pravachol] 20 mg PO DAILY 08/24/17 [History] Ramipril [Altace] 10 mg PO BID 08/24/17 [History] Rivaroxaban [Xarelto] 20 mg PO DAILY 08/24/17 [History] Cyclobenzaprine HCl [Flexeril] 10 mg PO BIDPRN PRN 12/01/17 [History] Dronedarone HCl [Multaq] 400 mg PO BID 12/01/17 [History] Amlodipine Besylate 2.5 mg PO DAILY 01/03/19 [History] Clopidogrel Bisulfate [Clopidogrel] 75 mg PO DAILY 01/03/19 [History] Fluticasone/Salmeterol Disc [Advair 250-50 Diskus 14 Dose] 2 puffs IH BID 01/03/19 [History] Gabapentin 600 mg PO QID 01/03/19 [History] Tamsulosin HCl 0.4 mg PO DAILY 01/03/19 [History] Hx Tetanus, Diphtheria Vaccination/Date Given: Yes (UNKNOWN) Hx Influenza Vaccination/Date Given: Yes Hx Pneumococcal Vaccination/Date Given: Yes Travel Risk - International Travel Have you traveled outside of the country in past 3 weeks: No - Coronavirus Screening Are you exhibiting any of the following symptoms?: No Close contact with a COVID-19 positive Pt in past 14-21 Days: No - Review of Systems Constitutional: No Symptoms Eyes: No Symptoms Ears, Nose, & Throat: No Symptoms Respiratory: No Symptoms Cardiac: No Symptoms Abdominal/Gastrointestinal: No Symptoms Genitourinary Symptoms: No Symptoms Musculoskeletal: No Symptoms Skin: Other (Follow-up laceration repair site) Neurological: No Symptoms Psychological: No Symptoms Endocrine: No Symptoms Hematologic/Lymphatic: No Symptoms Immunological/Allergic: No Symptoms All Other Systems: Reviewed and Negative - Past Medical History Pertinent Past Medical History: Yes Neurological History: No Pertinent History ENT History: No Pertinent History Cardiac History: Arrhythmia, Hypertension, Other Respiratory History: COPD Endocrine Medical History: No Pertinent History Musculoskeletal History: Arthritis, Fractures GI Medical History: Hepatitis History: No Pertinent History Psycho-Social History: Anxiety, Depression Male Reproductive Disorders: No Pertinent History Other Medical History: HAS Defibrillator/Pacemaker ON LEFT CHEST due to hypertrophic cardiomyopathy - Past Surgical History Past Surgical History: Yes Neuro Surgical History: No Pertinent History Cardiac: Internal Defibrillator, Pacemaker Respiratory: No Pertinent History Gastrointestinal: No Pertinent History Genitourinary: No Pertinent History Musculoskeletal: Joint Replacement Male Surgical History: No Pertinent History Other Surgical History: . - Social History Smoking Status: Never smoker Exposure to second hand smoke: No Alcohol Use: None Drug Use: none Patient Lives Alone: No Significant Family History: heart disease, hypertension - Nursing Vital Signs Nursing Vital Signs: Initial Vital Signs Temperature 98.1 F 05/05/20 10:39 Pulse Rate 56 L 05/05/20 10:39 Blood Pressure 131/84 05/05/20 10:39 O2 Sat by Pulse Oximetry 98 05/05/20 10:39 Pain Scale Pain Intensity 0 - Physical Exam General Appearance: no apparent distress, alert Eye Exam: PERRL/EOMI, eyes nml inspection Ears, Nose, Throat Exam: normal ENT inspection, moist mucous membranes Neck Exam: normal inspection, non-tender, supple, full range of motion Respiratory Exam: airway intact, No chest tenderness, No respiratory distress Gastrointestinal/Abdomen Exam: No tenderness Rectal Exam: not done Back Exam: normal inspection, normal range of motion, No CVA tenderness, No vertebral tenderness Extremity Exam: normal range of motion, pelvis stable Neurologic Exam: alert, oriented x 3, 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 There is less redness than the last time I evaluated him a few days ago.) Lymphatic Exam: No adenopathy SpO2 Interpretation: normal SpO2: 98 O2 Delivery: Room Air - Course Nursing assessment & vital signs reviewed: Yes - Progress Progress: improved Counseled pt/family regarding: diagnosis, need for follow-up, rad results - Departure Departure Disposition: Home Clinical Impression: Visit for wound check, Visit for suture removal Condition: Stable Critical Care Time: No Referrals: STEPHANIE SIMS [Primary Care Provider] - Additional Instructions: Keep site dry for 24 hours. After 24 hours, may wash daily. Leave Steri-Strips in place until they fall off. Follow-up with your primary care physician or any questions about your wound.
[2020-05-05 11:12] VITALS: BP 117/70; PULSE 88
== END 2020-05-05 11:13 | disposition home or self-care (01) ==
LOC: ED 10:32
DX: Z48.02 Encounter for removal of sutures (principal)
CPT/HCPCS: 99283; G0463

== ENCOUNTER 2020-07-04 22:38 | Observation (INO) | payer MEDICARE ==
[2020-07-04 23:08] LABS: Absolute Neutrophil Ct (ANC) 4.59 (1.4-6.9); BASOPHIL % 0.1 % (0.0-0.4); Basophil (Absolute #) 0.01 (0-0.4); Eosinophil % 1.7 % (0.00-5.0); Eosinophil (Absolute #) 0.16 (0-0.5); Hematocrit 42.1 % (42-50); Hemoglobin 14.2 gm/dl (12.5-18.0); Lymphocyte (Absolute #) 3.41 (1.0-4.6); Lymphocytes % 35.7 % (24.0-44.0); Mean Corpuscular Hemoglobin 32.7 pg (26-32); Mean Corpuscular Hgb Concent. 33.7 g/dl (32-36); Mean Platelet Volume 10.4 fl (7.5-11.0); Monocyte (Absolute #) 1.37 (0.0-1.3); Monocytes % 14.4 % (0.0-12.0); Neutrophil % 48.1 % (36.0-66.0); Platelet Count 224 K/mm3 (150-450); Red Blood Count 4.34 M/mm3 (4.1-5.6); Red Cell Distribution Width 13.5 % (11.5-14.0); White Blood Count 9.5 K/mm3 (4.0-10.5)
--- NOTE | 2020-07-04 23:14 | ERPHSYRPT ---
- History of Present Illness Time Seen by Provider: 07/04/20 22:50 Historian: patient Exam Limitations: no limitations Patient Subjective Stated Complaint: pt states, "my defibrilator shocked me 3 times before I got here". Triage Nursing Assessment: pt ambulated into ER. Pt states, "My defibrilator shocked me 3 times before I got here". Pt heart rate is rapid at 136 b/min and irregular. Lungs clear. Pt has Pacemaker and defib. Pt denies any chest pain or sob at this time. Pt has hx of chronic sob and heart arrhythmia. Physician History: Patient is a 64-year-old male presents to our ED with complaints of discharge of his defibrillator. Patient states his defibrillator discharge 3 times. Patient has been experiencing some heart palpitations. No billie chest pain. No nausea vomiting or diaphoresis. Patient defibrillator has discharge in the past and his current symptomology is the same. Symptoms are mild to moderate in intensity. No specific worsening or improving factors. No trauma. No fever. Patient voices no other complaints or concerns at this time. Timing/Duration: today Activities at Onset: none Quality: pressure Location: substernal Chest Pain Radiation: no radiation Severity of Pain-Max: moderate Severity of Pain-Current: mild Modifying Factors: Improves With: nothing Associated Symptoms: denies symptoms Prior Chest Pain/Cardiac Workup: no prior chest pain Nitro Today/Relief: no nitro taken today Aspirin Treatment Today: no aspirin today Allergies/Adverse Reactions: codeine [Codeine] Allergy (Mild, Verified 07/04/20 22:52) Hives pt states hives are quick onset Home Medications: Ipratropium/Albuterol Sulfate [Combivent Inhaler] 14.7 gm IH BIDPRN PRN 08/24/17 [History] Metoprolol Succinate 50 mg [Toprol Xl 50 MG] 50 mg PO BID 08/24/17 [History] Nitroglycerin 0.4 mg (Ed) [Nitrostat 0.4 MG (ED)] 0.4 mg SL UD PRN 08/24/17 [History] Pantoprazole Sodium 40 mg PO DAILY 08/24/17 [History] Potassium Chloride 20 Meq [Klor-Con 20 MEQ] 20 meq PO DAILY 08/24/17 [History] Pravastatin Sodium [Pravachol] 20 mg PO DAILY 08/24/17 [History] Ramipril [Altace] 10 mg PO BID 08/24/17 [History] Rivaroxaban [Xarelto] 20 mg PO DAILY 08/24/17 [History] Cyclobenzaprine HCl [Flexeril] 10 mg PO BIDPRN PRN 12/01/17 [History] Amlodipine Besylate 2.5 mg PO DAILY 01/03/19 [History] Clopidogrel Bisulfate [Clopidogrel] 75 mg PO DAILY 01/03/19 [History] Fluticasone/Salmeterol Disc [Advair 250-50 Diskus 14 Dose] 2 puffs IH BID 01/03/19 [History] Gabapentin 600 mg PO QID 01/03/19 [History] Hx Tetanus, Diphtheria Vaccination/Date Given: Yes Hx Influenza Vaccination/Date Given: Yes Hx Pneumococcal Vaccination/Date Given: Yes Immunizations Up to Date: Yes Travel Risk - International Travel Have you traveled outside of the country in past 3 weeks: No - Coronavirus Screening Are you exhibiting any of the following symptoms?: No Close contact with a COVID-19 positive Pt in past 14-21 Days: No - Review of Systems Constitutional: No Symptoms, No Fever, No Chills Eyes: No Symptoms Ears, Nose, & Throat: No Symptoms Respiratory: No Symptoms, No Cough, No Dyspnea Cardiac: No Symptoms, No Chest Pain, No Edema, No Syncope Abdominal/Gastrointestinal: No Symptoms, No Abdominal Pain, No Nausea, No Vomiting, No Diarrhea Genitourinary Symptoms: No Symptoms, No Dysuria Musculoskeletal: No Symptoms, No Back Pain, No Neck Pain Skin: No Symptoms, No Rash Neurological: No Symptoms, No Dizziness, No Focal Weakness, No Sensory Changes Psychological: No Symptoms Endocrine: No Symptoms Hematologic/Lymphatic: No Symptoms Immunological/Allergic: No Symptoms All Other Systems: Reviewed and Negative - Past Medical History Pertinent Past Medical History: Yes Neurological History: No Pertinent History ENT History: No Pertinent History Cardiac History: Arrhythmia, Coronary Artery Disease, Hypertension, Other Respiratory History: COPD Endocrine Medical History: No Pertinent History Musculoskeletal History: Arthritis, Fractures GI Medical History: Hepatitis History: No Pertinent History Psycho-Social History: Anxiety, Depression Male Reproductive Disorders: No Pertinent History Other Medical History: HAS Defibrillator/Pacemaker ON LEFT CHEST due to hypertrophic cardiomyopathy - Past Surgical History Past Surgical History: Yes Neuro Surgical History: No Pertinent History Cardiac: Internal Defibrillator, Pacemaker Respiratory: No Pertinent History Gastrointestinal: No Pertinent History Genitourinary: No Pertinent History Musculoskeletal: Joint Replacement Male Surgical History: No Pertinent History Other Surgical History: . - Social History Smoking Status: Never smoker Exposure to second hand smoke: Yes Alcohol Use: None Drug Use: none Patient Lives Alone: No Significant Family History: heart disease, hypertension - Nursing Vital Signs Nursing Vital Signs: Initial Vital Signs Temperature 99.0 F 07/04/20 22:40 Pulse Rate 130 H 07/04/20 22:40 Respiratory Rate 20 07/04/20 22:40 Blood Pressure 161/104 07/04/20 22:40 O2 Sat by Pulse Oximetry 97 07/04/20 22:40 Pain Scale Pain Intensity 0 - Physical Exam General Appearance: no apparent distress, alert Eye Exam: PERRL/EOMI, eyes nml inspection Ears, Nose, Throat Exam: normal ENT inspection, moist mucous membranes Neck Exam: normal inspection, non-tender, supple, full range of motion Respiratory Exam: normal breath sounds, lungs clear, No respiratory distress Cardiovascular Exam: regular rate/rhythm, normal heart sounds Gastrointestinal/Abdomen Exam: soft, No tenderness, No mass Back Exam: normal inspection, No CVA tenderness, No vertebral tenderness Extremity Exam: normal inspection, normal range of motion Neurologic Exam: alert, oriented x 3, cooperative, normal mood/affect, sensation nml, No motor deficits Skin Exam: normal color, warm, dry SpO2 Interpretation: normal SpO2: 97 O2 Delivery: Room Air - Course Nursing assessment & vital signs reviewed: Yes EKG Interpreted by Me: RATE (162, ), NORMAL AXIS, NORMAL INTERVALS - Radiology Exams Chest X-ray Interpretation: Interpreted by me (Chest wall cardiac pacing device with intact atrial and ventricular leads. Otherwise unremarkable chest x-ray.) - CT Exams Chest CT Interpretation: Tele-radiologist Report (Semination for pulmonary embolism due to extensive breathing artifact. No evidence of central pulmonary embolus. Moderate size hiatal hernia. There are additional nonemergent findings discussed in the body of the report.) Ordered Tests: Active Orders 24 hr Category Date Time Status [employer] Supervisor STAT Care 07/04/20 22:53 Active EKG-ER Only STAT Care 07/04/20 22:52 Active EKG-ER Only STAT Care 07/05/20 01:46 Ordered IV Insertion STAT Care 07/04/20 22:52 Active Pulse Oximetry (ED) STAT Care 07/04/20 22:52 Active CHEST 1 VIEW (PORTABLE) Stat Exams 07/04/20 23:12 Taken CHEST WITH CONTRAST [CT] Stat Exams 07/04/20 23:48 Taken CBC W DIFF Stat Lab 07/04/20 23:05 Completed CMP Stat Lab 07/04/20 23:05 Completed D-DIMER QUANTITATIVE Stat Lab 07/04/20 23:05 Completed ETHYL ALCOHOL Stat Lab 07/04/20 23:05 Completed MAGNESIUM Stat Lab 07/04/20 23:05 Completed NT PRO BNP Stat Lab 07/04/20 23:05 Completed TROPONIN Q3H Lab 07/04/20 23:05 Completed TROPONIN Q3H Lab 07/05/20 02:00 Ordered TROPONIN Q3H Lab 07/05/20 05:00 Ordered TROPONIN Q3H Lab 07/05/20 08:00 Ordered TROPONIN Q3H Lab 07/05/20 11:00 Ordered UA W/RFX UR CULTURE Stat Lab 07/04/20 22:53 Completed Urine Triage Profile Stat Lab 07/04/20 22:54 Received Medication Summary Discontinued Medications Generic Name Dose Route Start Last Admin Trade Name Freq PRN Reason Stop Dose Admin Potassium Chloride 40 meq 07/05/20 01:41 07/05/20 01:51 Klor Con 10 Meq PO 07/05/20 01:42 40 meq STAT ONE Administration Potassium Chloride Confirm 07/05/20 01:50 Klor Con 10 Meq Administered 07/05/20 01:51 Dose 40 meq PO .STK-MED ONE Lab/Rad Data: Laboratory Result Diagrams 07/04/20 23:05 07/04/20 23:05 Laboratory Results 07/04/20 07/04/20 07/04/20 Range/Units 23:05 23:05 23:05 WBC (4.0-10.5) K/mm3 RBC (4.1-5.6) M/mm3 Hgb (12.5-18.0) gm/dl Hct (42-50) % MCV (78-100) fl MCH (26-32) pg MCHC (32-36) g/dl RDW (11.5-14.0) % Plt Count (150-450) K/mm3 MPV (7.5-11.0) fl Gran % (36.0-66.0) % Eos # (Auto) (0-0.5) Absolute Lymphs (auto) (1.0-4.6) Absolute Monos (auto) (0.0-1.3) Lymphocytes % (24.0-44.0) % Monocytes % (0.0-12.0) % Eosinophils % (0.00-5.0) % Basophils % (0.0-0.4) % Absolute Granulocytes (1.4-6.9) Basophils # (0-0.4) D-Dimer 506 H* (215-500) ng/mL Sodium 139 (137-145) mmol/L Potassium 3.4 L (3.5-5.1) mmol/L Chloride 106 (98-107) mmol/L Carbon Dioxide 25 (22-30) mmol/L Anion Gap 11.8 (5-15) MEQ/L BUN 22 H (9-20) mg/dL Creatinine 0.91 (0.66-1.25) mg/dL Estimated GFR > 60.0 ML/MIN Glucose 152 H (74-106) mg/dL Calcium 9.7 (8.4-10.2) mg/dL Magnesium 2.1 (1.6-2.3) mg/dL Total Bilirubin 1.20 (0.2-1.3) mg/dL AST 55 (17-59) U/L ALT 34 (0-50) U/L Alkaline Phosphatase 93 (38-126) U/L Troponin I 0.020 (0.000-0.034) ng/mL NT-Pro-B Natriuret Pep 1190 H (0-900) pg/mL Serum Total Protein 7.9 (6.3-8.2) g/dL Albumin 4.5 (3.5-5.0) g/dL Urine Color (YELLOW) Urine Appearance (CLEAR) Urine pH (5-6) Ur Specific [place] (1.005-1.025) Urine Protein (Negative) Urine Ketones (NEGATIVE) Urine Blood (0-5) Scout/ul Urine Nitrite (NEGATIVE) Urine Bilirubin (NEGATIVE) Urine Urobilinogen (0-1) mg/dL Ur Leukocyte Esterase (NEGATIVE) Urine WBC (Auto) (0-5) /HPF Urine RBC (Auto) (0-2) /HPF U Epithel Cells (Auto) (FEW) /HPF Urine Bacteria (Auto) (NEGATIVE) /HPF Urine Mucus (Auto) (NEGATIVE) /HPF Urine Culture Reflexed (NO) Urine Glucose (NEGATIVE) mg/dL Ethyl Alcohol < 10 (0-10) mg/dL 07/04/20 07/04/20 Range/Units 23:05 22:53 WBC 9.5 (4.0-10.5) K/mm3 RBC 4.34 (4.1-5.6) M/mm3 Hgb 14.2 (12.5-18.0) gm/dl Hct 42.1 (42-50) % MCV 97.0 (78-100) fl MCH 32.7 H (26-32) pg MCHC 33.7 (32-36) g/dl RDW 13.5 (11.5-14.0) % Plt Count 224 (150-450) K/mm3 MPV 10.4 (7.5-11.0) fl Gran % 48.1 (36.0-66.0) % Eos # (Auto) 0.16 (0-0.5) Absolute Lymphs (auto) 3.41 (1.0-4.6) Absolute Monos (auto) 1.37 H (0.0-1.3) Lymphocytes % 35.7 (24.0-44.0) % Monocytes % 14.4 H (0.0-12.0) % Eosinophils % 1.7 (0.00-5.0) % Basophils % 0.1 (0.0-0.4) % Absolute Granulocytes 4.59 (1.4-6.9) Basophils # 0.01 (0-0.4) D-Dimer (215-500) ng/mL Sodium (137-145) mmol/L Potassium (3.5-5.1) mmol/L Chloride (98-107) mmol/L Carbon Dioxide (22-30) mmol/L Anion Gap (5-15) MEQ/L BUN (9-20) mg/dL Creatinine (0.66-1.25) mg/dL Estimated GFR ML/MIN Glucose (74-106) mg/dL Calcium (8.4-10.2) mg/dL Magnesium (1.6-2.3) mg/dL Total Bilirubin (0.2-1.3) mg/dL AST (17-59) U/L ALT (0-50) U/L Alkaline Phosphatase (38-126) U/L Troponin I (0.000-0.034) ng/mL NT-Pro-B Natriuret Pep (0-900) pg/mL Serum Total Protein (6.3-8.2) g/dL Albumin (3.5-5.0) g/dL Urine Color YELLOW (YELLOW) Urine Appearance CLEAR (CLEAR) Urine pH 6.0 (5-6) Ur Specific [place] 1.029 (1.005-1.025) Urine Protein NEGATIVE (Negative) Urine Ketones SMALL (NEGATIVE) Urine Blood NEGATIVE (0-5) Scout/ul Urine Nitrite NEGATIVE (NEGATIVE) Urine Bilirubin NEGATIVE (NEGATIVE) Urine Urobilinogen NEGATIVE (0-1) mg/dL Ur Leukocyte Esterase NEGATIVE (NEGATIVE) Urine WBC (Auto) 3-5 (0-5) /HPF Urine RBC (Auto) NONE (0-2) /HPF U Epithel Cells (Auto) NONE (FEW) /HPF Urine Bacteria (Auto) NONE (NEGATIVE) /HPF Urine Mucus (Auto) SLIGHT (NEGATIVE) /HPF Urine Culture Reflexed NO (NO) Urine Glucose 50 (NEGATIVE) mg/dL Ethyl Alcohol (0-10) mg/dL - Progress Progress: improved Air Movement: good Progress Note: 07/05/20 02:21 Patient reassessed. He feels well. Palpitations solved. EKG heart rate normalized to 62. EKG reveals a pericarditis. Potassium 3.4. Potassium replaced. BNP slightly elevated at 1190. Hiatal hernia was incidentally found. D-dimer was elevated. CTA chest negative for PE. Case discussed with who advised admission for observation. We will obtain a echocardiogram in the morning. Patient does not have information regarding the manufacture of his defibrillator. We were unable to interrogate the device today. Case discussed with Dr. Sims. Dr. Sims accepts admission to [facility]. Patient agrees to admission to [facility] for further evaluation and treatment. All questions are answered. Patient voices no other complaints or concerns at this time. Blood Culture(s) Obtained: No Antibiotics given: No Discussed with : Kathy Counseled pt/family regarding: lab results, diagnosis, rad results - Departure Departure Disposition: Observation Clinical Impression: Heart palpitations, Hypokalemia, Elevated brain natriuretic peptide (BNP) level, Hiatal hernia, Acute pericarditis, Amphetamine abuse, Marijuana use, Opiate use Condition: Stable Critical Care Time: No Referrals: STEPHANIE SIMS [Primary Care Provider] -
[2020-07-04 23:32] LABS: ALBUMIN 4.5 g/dL (3.5-5.0); ALKALINE PHOSPHATASE 93 U/L (38-126); ANION GAP 11.8 MEQ/L (5-15); BLOOD UREA NITROGEN 22 mg/dL (9-20); CHLORIDE 106 mmol/L (98-107); Calcium 9.7 mg/dL (8.4-10.2); Carbon Dioxide 25 mmol/L (22-30); Creatinine 1 0.91 mg/dL (0.66-1.25); EST GLOMERULAR FILTRATION RATE > 60.0 ML/MIN; Glucose 152 mg/dL (74-106); MAGNESIUM 2.1 mg/dL (1.6-2.3); NT PRO BNP 1190 pg/mL (0-900); Potassium 3.4 mmol/L (3.5-5.1); SGOT/AST 55 U/L (17-59); SGPT/ALT 34 U/L (0-50); SODIUM 139 mmol/L (137-145); Total Protein 7.9 g/dL (6.3-8.2)
[2020-07-04 23:36] LABS: ETHYL ALCOHOL < 10 mg/dL (0-10)
[2020-07-05 01:23] LABS: Appearance CLEAR (CLEAR); Bilirubin NEGATIVE (NEGATIVE); Blood NEGATIVE Ery/ul (0-5); Glucose 50 mg/dL (NEGATIVE); Ketones SMALL (NEGATIVE); Leukocyte Esterase NEGATIVE (NEGATIVE); Mucus SLIGHT /HPF (NEGATIVE); Nitrite NEGATIVE (NEGATIVE); Protein,Urine Dip NEGATIVE (Negative); Specific Gravity 1.029 (1.005-1.025); Urobilinogen NEGATIVE mg/dL (0-1)
[2020-07-05 01:38] LABS: Barbiturate,Urine NEGATIVE (NEGATIVE); Benzodiazepine,Urine POSITIVE (NEGATIVE); Cocaine,Urine NEGATIVE (NEGATIVE); Methadone,Urine NEGATIVE (NEGATIVE); Opiate,Urine POSITIVE (NEGATIVE); PCP,Urine NEGATIVE (NEGATIVE); THC,Urine POSITIVE (NEGATIVE)
[2020-07-05] MEDS ORDERED: Klor Con 10 MEQ PO ONE ×2 (01:41→01:50)
[2020-07-05] MEDS ORDERED: BABY ASPIRIN 81 MG CHEW PO ONE (02:12)
[2020-07-05 02:19] LABS: Amphetamine,Urine POSITIVE (NEGATIVE)
[2020-07-05] MEDS ORDERED: Senokot-S Tablet PO PRN (03:27)
[2020-07-05] MEDS ORDERED: TYLENOL 325 MG PO PRN (03:27)
[2020-07-05] MEDS ORDERED: MAALOX ES 30 ML UNIT DOSE PO PRN (03:27)
[2020-07-05] MEDS ORDERED: MILK OF MAGNESIA 30 ML PO PRN (03:27)
[2020-07-05] MEDS ORDERED: DUONEB 0.5-3 MG/3 ml Neb IH PRN (03:58)
[2020-07-05 06:34] LABS: Risk Ratio 2.7
--- NOTE | 2020-07-05 08:56 | XRAY ---
Indication: Elevated d-dimer. Multiple contiguous axial images obtained through the chest using 80 cc Isovue 370 contrast and PE protocol. Comparison: July 07, 2007. There is satisfactory opacification of the pulmonary arteries. However mild respiration artifact limits evaluation of the more distal lobar and segmental branches. No central pulmonary embolus. Heart is now borderline enlarged again with left-sided AICD. Aorta is normal in course and caliber with now minimal calcifications at the level of the arch. No pathologic mediastinal/hilar lymphadenopathy. Enlarging moderate sized hiatal hernia with now partial intrathoracic stomach. Lungs now demonstrates mild bilateral dependent atelectasis. Stable left apical calcified granuloma. No suspicious pulmonary mass, infiltrate, or effusion. Bony thorax intact with mild degenerative changes throughout the spine. New remote-appearing minimal T11-T12 anterior wedging deformities. Limited upper abdomen including adrenal glands are unremarkable. Impression: 1. Pulmonary embolus evaluation limited by respiration artifact. No central pulmonary embolus. 2. New borderline cardiomegaly. No acute cardiopulmonary abnormalities. 3. Enlarging moderate size hiatal hernia with partial intrathoracic stomach. 4. Chronic bony findings. Comment: Preliminary interpretation was made by C. No critical discrepancy.
--- NOTE | 2020-07-05 08:58 | XRAY ---
Indication: Defibrillator malfunction. Comparison: February 04, 2018. Portable chest again demonstrates normal heart and lungs with incidental left apical calcified granuloma. Stable left AICD with intact single lead. Bony thorax intact. No new/acute findings.
[2020-07-05] MEDS ORDERED: Ecotrin 325 MG PO SCH (10:00)
--- NOTE | 2020-07-05 10:31 | PCM.HP ---
History of Present Illness - Chief Complaint Chief Complaint: pericarditis History of Present Illness: is a 64 year old male. Presented to ER after reporting he had been shocked 3 times prior to arrival, this am after admission pt. notes he is feeling great, there was question of pericarditis on evaluation last evening, EKG and labs have been normal thus far, after ECHO pt. 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 - Review of Systems Constitutional: No Fever, No Chills Eyes: No Symptoms Ears, Nose, & Throat: No Symptoms Respiratory: No Cough, No Short Of Breath Cardiac: No Chest Pain, No Edema, No Syncope Abdominal/Gastrointestinal: No Abdominal Pain, No Nausea, No Vomiting, No Diarrhea Genitourinary Symptoms: No Dysuria Musculoskeletal: No Back Pain, No Neck Pain Skin: No Rash Neurological: No Dizziness, No Focal Weakness, No Sensory Changes Psychological: No Symptoms Endocrine: No Symptoms Hematologic/Lymphatic: No Symptoms Immunological/Allergic: No Symptoms Medications & Allergies Home Medications: Home Medication List Ipratropium/Albuterol Sulfate [Combivent Inhaler] 14.7 gm IH BIDPRN PRN 08/24/17 [History Confirmed 07/04/20] Metoprolol Succinate 50 mg [Toprol Xl 50 MG] 50 mg PO BID 08/24/17 [Hi story Confirmed 07/04/20] Nitroglycerin 0.4 mg (Ed) [Nitrostat 0.4 MG (ED)] 0.4 mg SL UD PRN 08/24/17 [History Confirmed 07/04/20] Potassium Chloride 20 Meq [Klor-Con 20 MEQ] 20 meq PO DAILY 08/24/17 [History Confirmed 07/04/20] Pravastatin Sodium [Pravachol] 80 mg PO DAILY 08/24/17 [History Confirmed 07/05/20] Rivaroxaban [Xarelto] 20 mg PO DAILY 08/24/17 [History Confirmed 07/04/20] Cyclobenzaprine HCl [Flexeril] 10 mg PO BIDPRN PRN 12/01/17 [History Confirmed 07/04/20] Amlodipine Besylate 2.5 mg PO DAILY 01/03/19 [History Confirmed 07/04/20] Fluticasone/Salmeterol Disc [Advair 250-50 Diskus 14 Dose] 2 puffs IH BID 01/03/19 [History Confirmed 07/04/20] Gabapentin 600 mg PO QID 01/03/19 [History Confirmed 07/04/20] Diclofenac Sodium Gel [Voltaren GEL] 100 gm TP QID 07/05/20 [History Confirmed 07/05/20] Fluoxetine HCl 40 mg PO DAILY 07/05/20 [History Confirmed 07/05/20] Furosemide 20 mg [Lasix 20 mg] 20 mg PO DAILY PRN PRN 07/05/20 [History Confirmed 07/05/20] Lisinopril 10 mg [Zestril 10 MG] 10 mg PO BID 07/05/20 [History Confirmed 07/05/20] Allergies/Adverse Reactions: Allergies Allergy/AdvReac Type Severity Reaction Status Date / Time codeine [Codeine] Allergy Mild Hives Verified 07/04/20 22:52 - Past Medical History Past Medical History: Yes Neurological History: No Pertinent History ENT History: No Pertinent History Cardiac History: Arrhythmia, Coronary Artery Disease, Hypertension, Other Respiratory History: COPD Endocrine Medical History: No Pertinent History Musculoskelatal History: Arthritis, Fractures GI Medical History: Hepatitis History: No Pertinent History Pyscho-Social History: Anxiety, Depression Male Reproductive Disorders: No Pertinent History Comment: HAS Defibrillator/Pacemaker ON LEFT CHEST due to hypertrophic cardiomyopathy - Past Surgical History Past Surgical History: Yes Neuro Surgical History: No Pertinent History Cardiac History: Internal Defibrillator, Pacemaker Respiratory Surgery: No Pertinent History GI Surgical History: No Pertinent History Genitourinary Surgical Hx: No Pertinent History Musculskeletal Surgical Hx: Joint Replacement Male Surgical History: No Pertinent History Other Surgical History: . - Social History Smoking Status: Never smoker Exposure to second hand smoke: Yes Alcohol: None Drug Use: none Significant Family History: heart disease, hypertension - Physical Exam Vital Signs: Vital Signs - 24 hr Temp Pulse Pulse Resp BP Pulse Ox 07/05/20 08:00 97.9 F 72 18 124/66 96 07/05/20 07:11 95 07/05/20 03:50 99.0 F 62 14 98/65 96 07/05/20 03:20 62 14 96 07/05/20 03:00 62 14 98/65 96 07/05/20 02:28 97 07/05/20 02:00 62 18 118/73 96 07/05/20 01:00 78 14 116/77 97 07/05/20 00:00 90 16 123/78 95 07/04/20 23:39 96 H 20 124/80 95 07/04/20 22:52 97 07/04/20 22:42 130 H 07/04/20 22:40 99.0 F 130 H 20 161/104 97 General Appearance: no apparent distress Neurologic Exam: alert, cooperative Eye Exam: eyes nml inspection Ears, Nose, Throat Exam: normal ENT inspection Neck Exam: normal inspection, non-tender, supple Respiratory Exam: normal breath sounds, lungs clear, No chest tenderness Cardiovascular Exam: regular rate/rhythm, normal heart sounds, normal peripheral pulses Gastrointestinal/Abdomen Exam: soft, normal bowel sounds, No tenderness, No distention Rectal Exam: deferred Back Exam: normal inspection Extremity Exam: normal inspection Results - Labs Lab/Micro Results: Lab Results-Last 24 Hours 07/04/20 07/04/20 07/04/20 Range/Units 22:53 22:54 23:05 WBC 9.5 (4.0-10.5) K/mm3 RBC 4.34 (4.1-5.6) M/mm3 Hgb 14.2 (12.5-18.0) gm/dl Hct 42.1 (42-50) % MCV 97.0 (78-100) fl MCH 32.7 H (26-32) pg MCHC 33.7 (32-36) g/dl RDW 13.5 (11.5-14.0) % Plt Count 224 (150-450) K/mm3 MPV 10.4 (7.5-11.0) fl Gran % 48.1 (36.0-66.0) % Eos # (Auto) 0.16 (0-0.5) Absolute Lymphs (auto) 3.41 (1.0-4.6) Absolute Monos (auto) 1.37 H (0.0-1.3) Lymphocytes % 35.7 (24.0-44.0) % Monocytes % 14.4 H (0.0-12.0) % Eosinophils % 1.7 (0.00-5.0) % Basophils % 0.1 (0.0-0.4) % Absolute Granulocytes 4.59 (1.4-6.9) Basophils # 0.01 (0-0.4) D-Dimer (215-500) ng/mL Sodium (137-145) mmol/L Potassium (3.5-5.1) mmol/L Chloride (98-107) mmol/L Carbon Dioxide (22-30) mmol/L Anion Gap (5-15) MEQ/L BUN (9-20) mg/dL Creatinine (0.66-1.25) mg/dL Estimated GFR ML/MIN Glucose (74-106) mg/dL Calcium (8.4-10.2) mg/dL Magnesium (1.6-2.3) mg/dL Total Bilirubin (0.2-1.3) mg/dL AST (17-59) U/L ALT (0-50) U/L Alkaline Phosphatase (38-126) U/L Troponin I (0.000-0.034) ng/mL NT-Pro-B Natriuret Pep (0-900) pg/mL Serum Total Protein (6.3-8.2) g/dL Albumin (3.5-5.0) g/dL Triglycerides (30-150) mg/dL Cholesterol (50-200) mg/dL LDL Cholesterol (30-100) mg/dL HDL Cholesterol (40-60) mg/dL Heart Disease Risk Ratio Urine Color YELLOW (YELLOW) Urine Appearance CLEAR (CLEAR) Urine pH 6.0 (5-6) Ur Specific Cactus 1.029 (1.005-1.025) Urine Protein NEGATIVE (Negative) Urine Ketones SMALL (NEGATIVE) Urine Blood NEGATIVE (0-5) Scout/ul Urine Nitrite NEGATIVE (NEGATIVE) Urine Bilirubin NEGATIVE (NEGATIVE) Urine Urobilinogen NEGATIVE (0-1) mg/dL Ur Leukocyte Esterase NEGATIVE (NEGATIVE) Urine WBC (Auto) 3-5 (0-5) /HPF Urine RBC (Auto) NONE (0-2) /HPF U Epithel Cells (Auto) NONE (FEW) /HPF Urine Bacteria (Auto) NONE (NEGATIVE) /HPF Urine Mucus (Auto) SLIGHT (NEGATIVE) /HPF Urine Culture Reflexed NO (NO) Urine Glucose 50 (NEGATIVE) mg/dL Urine Opiates Level POSITIVE (NEGATIVE) Ur Methadone NEGATIVE (NEGATIVE) Urine Barbiturates NEGATIVE (NEGATIVE) Ur Phencyclidine (PCP) NEGATIVE (NEGATIVE) Urine Amphetamine POSITIVE (NEGATIVE) U Benzodiazepine Level POSITIVE (NEGATIVE) Urine Cocaine NEGATIVE (NEGATIVE) Urine Marijuana (THC) POSITIVE (NEGATIVE) Ethyl Alcohol (0-10) mg/dL 07/04/20 07/04/20 07/04/20 Range/Units 23:05 23:05 23:05 WBC (4.0-10.5) K/mm3 RBC (4.1-5.6) M/mm3 Hgb (12.5-18.0) gm/dl Hct (42-50) % MCV (78-100) fl MCH (26-32) pg MCHC (32-36) g/dl RDW (11.5-14.0) % Plt Count (150-450) K/mm3 MPV (7.5-11.0) fl Gran % (36.0-66.0) % Eos # (Auto) (0-0.5) Absolute Lymphs (auto) (1.0-4.6) Absolute Monos (auto) (0.0-1.3) Lymphocytes % (24.0-44.0) % Monocytes % (0.0-12.0) % Eosinophils % (0.00-5.0) % Basophils % (0.0-0.4) % Absolute Granulocytes (1.4-6.9) Basophils # (0-0.4) D-Dimer 506 H* (215-500) ng/mL Sodium 139 (137-145) mmol/L Potassium 3.4 L (3.5-5.1) mmol/L Chloride 106 (98-107) mmol/L Carbon Dioxide 25 (22-30) mmol/L Anion Gap 11.8 (5-15) MEQ/L BUN 22 H (9-20) mg/dL Creatinine 0.91 (0.66-1.25) mg/dL Estimated GFR > 60.0 ML/MIN Glucose 152 H (74-106) mg/dL Calcium 9.7 (8.4-10.2) mg/dL Magnesium 2.1 (1.6-2.3) mg/dL Total Bilirubin 1.20 (0.2-1.3) mg/dL AST 55 (17-59) U/L ALT 34 (0-50) U/L Alkaline Phosphatase 93 (38-126) U/L Troponin I 0.020 (0.000-0.034) ng/mL NT-Pro-B Natriuret Pep 1190 H (0-900) pg/mL Serum Total Protein 7.9 (6.3-8.2) g/dL Albumin 4.5 (3.5-5.0) g/dL Triglycerides (30-150) mg/dL Cholesterol (50-200) mg/dL LDL Cholesterol (30-100) mg/dL HDL Cholesterol (40-60) mg/dL Heart Disease Risk Ratio Urine Color (YELLOW) Urine Appearance (CLEAR) Urine pH (5-6) Ur Specific Cactus (1.005-1.025) Urine Protein (Negative) Urine Ketones (NEGATIVE) Urine Blood (0-5) Scout/ul Urine Nitrite (NEGATIVE) Urine Bilirubin (NEGATIVE) Urine Urobilinogen (0-1) mg/dL Ur Leukocyte Esterase (NEGATIVE) Urine WBC (Auto) (0-5) /HPF Urine RBC (Auto) (0-2) /HPF U Epithel Cells (Auto) (FEW) /HPF Urine Bacteria (Auto) (NEGATIVE) /HPF Urine Mucus (Auto) (NEGATIVE) /HPF Urine Culture Reflexed (NO) Urine Glucose (NEGATIVE) mg/dL Urine Opiates Level (NEGATIVE) Ur Methadone (NEGATIVE) Urine Barbiturates (NEGATIVE) Ur Phencyclidine (PCP) (NEGATIVE) Urine Amphetamine (NEGATIVE) U Benzodiazepine Level (NEGATIVE) Urine Cocaine (NEGATIVE) Urine Marijuana (THC) (NEGATIVE) Ethyl Alcohol < 10 (0-10) mg/dL 07/05/20 07/05/20 07/05/20 Range/Units 02:05 04:40 04:40 WBC (4.0-10.5) K/mm3 RBC (4.1-5.6) M/mm3 Hgb (12.5-18.0) gm/dl Hct (42-50) % MCV (78-100) fl MCH (26-32) pg MCHC (32-36) g/dl RDW (11.5-14.0) % Plt Count (150-450) K/mm3 MPV (7.5-11.0) fl Gran % (36.0-66.0) % Eos # (Auto) (0-0.5) Absolute Lymphs (auto) (1.0-4.6) Absolute Monos (auto) (0.0-1.3) Lymphocytes % (24.0-44.0) % Monocytes % (0.0-12.0) % Eosinophils % (0.00-5.0) % Basophils % (0.0-0.4) % Absolute Granulocytes (1.4-6.9) Basophils # (0-0.4) D-Dimer (215-500) ng/mL Sodium (137-145) mmol/L Potassium (3.5-5.1) mmol/L Chloride (98-107) mmol/L Carbon Dioxide (22-30) mmol/L Anion Gap (5-15) MEQ/L BUN (9-20) mg/dL Creatinine (0.66-1.25) mg/dL Estimated GFR ML/MIN Glucose (74-106) mg/dL Calcium (8.4-10.2) mg/dL Magnesium (1.6-2.3) mg/dL Total Bilirubin (0.2-1.3) mg/dL AST (17-59) U/L ALT (0-50) U/L Alkaline Phosphatase (38-126) U/L Troponin I 0.020 0.017 (0.000-0.034) ng/mL NT-Pro-B Natriuret Pep (0-900) pg/mL Serum Total Protein (6.3-8.2) g/dL Albumin (3.5-5.0) g/dL Triglycerides 42 (30-150) mg/dL Cholesterol 141 (50-200) mg/dL LDL Cholesterol 83 (30-100) mg/dL HDL Cholesterol 53 (40-60) mg/dL Heart Disease Risk Ratio 2.7 Urine Color (YELLOW) Urine Appearance (CLEAR) Urine pH (5-6) Ur Specific Cactus (1.005-1.025) Urine Protein (Negative) Urine Ketones (NEGATIVE) Urine Blood (0-5) Scout/ul Urine Nitrite (NEGATIVE) Urine Bilirubin (NEGATIVE) Urine Urobilinogen (0-1) mg/dL Ur Leukocyte Esterase (NEGATIVE) Urine WBC (Auto) (0-5) /HPF Urine RBC (Auto) (0-2) /HPF U Epithel Cells (Auto) (FEW) /HPF Urine Bacteria (Auto) (NEGATIVE) /HPF Urine Mucus (Auto) (NEGATIVE) /HPF Urine Culture Reflexed (NO) Urine Glucose (NEGATIVE) mg/dL Urine Opiates Level (NEGATIVE) Ur Methadone (NEGATIVE) Urine Barbiturates (NEGATIVE) Ur Phencyclidine (PCP) (NEGATIVE) Urine Amphetamine (NEGATIVE) U Benzodiazepine Level (NEGATIVE) Urine Cocaine (NEGATIVE) Urine Marijuana (THC) (NEGATIVE) Ethyl Alcohol (0-10) mg/dL 07/05/20 Range/Units 08:00 WBC (4.0-10.5) K/mm3 RBC (4.1-5.6) M/mm3 Hgb (12.5-18.0) gm/dl Hct (42-50) % MCV (78-100) fl MCH (26-32) pg MCHC (32-36) g/dl RDW (11.5-14.0) % Plt Count (150-450) K/mm3 MPV (7.5-11.0) fl Gran % (36.0-66.0) % Eos # (Auto) (0-0.5) Absolute Lymphs (auto) (1.0-4.6) Absolute Monos (auto) (0.0-1.3) Lymphocytes % (24.0-44.0) % Monocytes % (0.0-12.0) % Eosinophils % (0.00-5.0) % Basophils % (0.0-0.4) % Absolute Granulocytes (1.4-6.9) Basophils # (0-0.4) D-Dimer (215-500) ng/mL Sodium (137-145) mmol/L Potassium (3.5-5.1) mmol/L Chloride (98-107) mmol/L Carbon Dioxide (22-30) mmol/L Anion Gap (5-15) MEQ/L BUN (9-20) mg/dL Creatinine (0.66-1.25) mg/dL Estimated GFR ML/MIN Glucose (74-106) mg/dL Calcium (8.4-10.2) mg/dL Magnesium (1.6-2.3) mg/dL Total Bilirubin (0.2-1.3) mg/dL AST (17-59) U/L ALT (0-50) U/L Alkaline Phosphatase (38-126) U/L Troponin I 0.015 (0.000-0.034) ng/mL NT-Pro-B Natriuret Pep (0-900) pg/mL Serum Total Protein (6.3-8.2) g/dL Albumin (3.5-5.0) g/dL Triglycerides (30-150) mg/dL Cholesterol (50-200) mg/dL LDL Cholesterol (30-100) mg/dL HDL Cholesterol (40-60) mg/dL Heart Disease Risk Ratio Urine Color (YELLOW) Urine Appearance (CLEAR) Urine pH (5-6) Ur Specific Cactus (1.005-1.025) Urine Protein (Negative) Urine Ketones (NEGATIVE) Urine Blood (0-5) Scout/ul Urine Nitrite (NEGATIVE) Urine Bilirubin (NEGATIVE) Urine Urobilinogen (0-1) mg/dL Ur Leukocyte Esterase (NEGATIVE) Urine WBC (Auto) (0-5) /HPF Urine RBC (Auto) (0-2) /HPF U Epithel Cells (Auto) (FEW) /HPF Urine Bacteria (Auto) (NEGATIVE) /HPF Urine Mucus (Auto) (NEGATIVE) /HPF Urine Culture Reflexed (NO) Urine Glucose (NEGATIVE) mg/dL Urine Opiates Level (NEGATIVE) Ur Methadone (NEGATIVE) Urine Barbiturates (NEGATIVE) Ur Phencyclidine (PCP) (NEGATIVE) Urine Amphetamine (NEGATIVE) U Benzodiazepine Level (NEGATIVE) Urine Cocaine (NEGATIVE) Urine Marijuana (THC) (NEGATIVE) Ethyl Alcohol (0-10) mg/dL - Radiology Impressions Radiology Exams & Impressions: Radiology Procedures Category Date Time Status CHEST 1 VIEW (PORTABLE) Stat Exams 07/04/20 23:12 Completed CHEST WITH CONTRAST [CT] Stat Exams 07/04/20 23:48 Completed - Other Procedures and Tests Respiratory Therapy 07/05/20 03:58 Respiratory Therapy Assessment DAILY 07/06/20 05:00 EKG DAILY 07/07/20 05:00 EKG DAILY 07/08/20 05:00 EKG DAILY Assessment/Plan (1) Acute pericarditis Current Visit: Yes Status: Acute Assessment & Plan: ECHO today, further evaluation and treatment plan per cardiology Code(s): I30.9 - ACUTE PERICARDITIS, UNSPECIFIED (2) Amphetamine abuse Current Visit: Yes Status: Acute Code(s): F15.10 - OTHER STIMULANT ABUSE, UNCOMPLICATED (3) Marijuana use Current Visit: Yes Status: Acute Code(s): F12.90 - CANNABIS USE, UNSPECIFIED, UNCOMPLICATED (4) Opiate use Current Visit: Yes Status: Acute Code(s): F11.90 - OPIOID USE, UNSPECIFIED, UNCOMPLICATED
[2020-07-05] MEDS ORDERED: LASIX 20 MG PO PRN (11:31)
[2020-07-05] MEDS ORDERED: NON-FORMULARY ITEM (Cyclobenzaprine Hcl [Flexeril] 10 MG) PO PRN (11:31)
[2020-07-05] MEDS ORDERED: Nitrostat 0.4 MG (ED) SL PRN (11:31)
[2020-07-05] MEDS ORDERED: Nitrostat 0.4 MG Tablet SL PRN (11:37)
[2020-07-05 11:38] VITALS: BP 126/62; PULSE 69; O2SAT 97
[2020-07-05] MEDS ORDERED: Cyclobenzaprine 10 MG PO PRN (11:40)
[2020-07-05] MEDS ORDERED: XARELTO 10 MG TABLET PO SCH (11:45)
[2020-07-05] MEDS ORDERED: Toprol Xl 50 MG PO SCH (11:45)
[2020-07-05] MEDS ORDERED: Zestril 10 MG PO SCH (11:45)
[2020-07-05] MEDS ORDERED: Prozac 20 MG PO SCH (11:45)
[2020-07-05] MEDS ORDERED: Advair Hfa 115/21 Common canister IH SCH (11:45)
[2020-07-05] MEDS ORDERED: NORVASC 5 MG PO SCH (12:00)
[2020-07-05] MEDS ORDERED: Voltaren GEL TP SCH (13:00)
[2020-07-05] MEDS ORDERED: NEURONTIN 300 MG PO SCH (13:00)
[2020-07-05] MEDS ORDERED: ADVAIR 250-50 DISKUS 14 DOSE IH SCH (22:00)
[2020-07-05] MEDS ORDERED: ZOCOR 20MG PO SCH (22:00)
[2020-07-06] MEDS ORDERED: NON-FORMULARY ITEM (Potassium Chloride 20 Meq [Klor-Con 20 Meq] 20 MEQ) PO SCH (10:00)
[2020-07-06] MEDS ORDERED: NON-FORMULARY ITEM (Fluoxetine Hcl [Fluoxetine Hcl] 40 MG) PO SCH (10:00)
[2020-07-06] MEDS ORDERED: NON-FORMULARY ITEM (Rivaroxaban [Xarelto] 20 MG) PO SCH (10:00)
[2020-07-06] MEDS ORDERED: Klor Con 10 MEQ PO SCH (10:00)
[2020-07-06] MEDS ORDERED: NON-FORMULARY ITEM (Pravastatin Sodium [Pravachol] 80 MG) PO SCH (10:00)
== END 2020-07-05 17:22 | disposition home or self-care (01) ==
LOC: ED 22:38 → MED SURG 07-05 03:26
PROVIDERS: ADMIT Family Medicine; ATTEND Family Medicine
DX: I30.9 Acute pericarditis, unspecified (principal); F15.10 Other stimulant abuse, uncomplicated; F12.90 Cannabis use, unspecified, uncomplicated; F11.90 Opioid use, unspecified, uncomplicated; Z79.899 Other long term (current) drug therapy; I10 Essential (primary) hypertension; I25.10 Atherosclerotic heart disease of native coronary artery without angina pectoris; J44.9 Chronic obstructive pulmonary disease, unspecified
CPT/HCPCS: 36000; 36415; 71045; 71260; 80053; 80061; 80307; 81001; 83721; 83735; 83880; 84484; 85025; 85379; 93005; 93041; 93268; 93306; 94760; 99284; 99291; G0378; G0480; A9270-GY

== ENCOUNTER 2020-09-23 16:54 | Observation (INO) | payer MEDICARE ==
[2020-09-23] MEDS ORDERED: BABY ASPIRIN 81 MG CHEW PO ONE (17:25)
[2020-09-23] MEDS ORDERED: Magnesium 1 Gm / 100 Ml D5W*** 100 ML IV ONE ×2 (17:29→17:46)
[2020-09-23 17:53] LABS: Absolute Neutrophil Ct (ANC) 7.74 (1.4-6.9); BASOPHIL % 0.1 % (0.0-0.4); Basophil (Absolute #) 0.01 (0-0.4); Eosinophil % 0.7 % (0.00-5.0); Eosinophil (Absolute #) 0.07 (0-0.5); Hematocrit 42.4 % (42-50); Lymphocyte (Absolute #) 1.65 (1.0-4.6); Lymphocytes % 16.1 % (24.0-44.0); Mean Cell Volume 96.8 fl (78-100); Mean Platelet Volume 9.7 fl (7.5-11.0); Monocyte (Absolute #) 0.79 (0.0-1.3); Monocytes % 7.7 % (0.0-12.0); Neutrophil % 75.4 % (36.0-66.0); Platelet Count 254 K/mm3 (150-450); Red Blood Count 4.38 M/mm3 (4.1-5.6); Red Cell Distribution Width 13.1 % (11.5-14.0); White Blood Count 10.3 K/mm3 (4.0-10.5)
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
[2020-09-23 18:13] LABS: ALBUMIN 4.2 g/dL (3.5-5.0); ALKALINE PHOSPHATASE 103 U/L (38-126); ANION GAP 11.9 MEQ/L (5-15); BLOOD UREA NITROGEN 24 mg/dL (9-20); CHLORIDE 107 mmol/L (98-107); Calcium 9.5 mg/dL (8.4-10.2); Carbon Dioxide 25 mmol/L (22-30); Creatinine 1 1.11 mg/dL (0.66-1.25); EST GLOMERULAR FILTRATION RATE > 60.0 ML/MIN; Glucose 148 mg/dL (74-106); NT PRO BNP 1250 pg/mL (0-900); SGOT/AST 31 U/L (17-59); SGPT/ALT 26 U/L (0-50); SODIUM 140 mmol/L (137-145); Total Protein 7.9 g/dL (6.3-8.2)
[2020-09-23] MEDS ORDERED: TYLENOL EXTRA STRENGTH 500 MG ONE (20:21)
[2020-09-23] MEDS ORDERED: TYLENOL EXTRA STRENGTH 500 MG PO STA (20:26)
[2020-09-23] MEDS ORDERED: TYLENOL 325 MG PO PRN (22:34)
[2020-09-23] MEDS ORDERED: Zofran 4 MG/2 ML VIAL IV PRN (22:34)
[2020-09-23] MEDS ORDERED: Nitrostat 0.4 MG Tablet SL PRN (23:24)
[2020-09-23] MEDS ORDERED: Cyclobenzaprine 10 MG PO SCH (23:30)
[2020-09-23] MEDS: NEURONTIN 300 MG PO SCH (23:41)
[2020-09-23] MEDS: Zestril 10 MG PO SCH (23:42)
[2020-09-23] MEDS: Pepcid 20 MG VIAL IV SCH (23:42)
[2020-09-23] MEDS: Toprol Xl 50 MG PO SCH (23:42)
[2020-09-24] MEDS ORDERED: ULTRAM 50 MG PO PRN (03:25)
[2020-09-24] MEDS ORDERED: TORAdol 30 mg Injection IM ONE (03:30)
[2020-09-24 06:47] LABS: Absolute Neutrophil Ct (ANC) 3.99 (1.4-6.9); BASOPHIL % 0.1 % (0.0-0.4); Basophil (Absolute #) 0.01 (0-0.4); Eosinophil % 3.2 % (0.00-5.0); Eosinophil (Absolute #) 0.23 (0-0.5); Hematocrit 40.3 % (42-50); Lymphocyte (Absolute #) 2.08 (1.0-4.6); Lymphocytes % 28.9 % (24.0-44.0); Mean Cell Volume 98.5 fl (78-100); Mean Corpuscular Hemoglobin 31.8 pg (26-32); Mean Corpuscular Hgb Concent. 32.3 g/dl (32-36); Monocyte (Absolute #) 0.89 (0.0-1.3); Monocytes % 12.4 % (0.0-12.0); Neutrophil % 55.4 % (36.0-66.0); Platelet Count 230 K/mm3 (150-450); Red Blood Count 4.09 M/mm3 (4.1-5.6); Red Cell Distribution Width 13.2 % (11.5-14.0); White Blood Count 7.2 K/mm3 (4.0-10.5)
[2020-09-24] MEDS ORDERED: DUONEB 0.5-3 MG/3 ml Neb IH SCH (07:00)
[2020-09-24] MEDS ORDERED: Advair Hfa 115/21 Common canister IH SCH (07:00)
[2020-09-24 07:31] LABS: ALBUMIN 3.5 g/dL (3.5-5.0); ALKALINE PHOSPHATASE 80 U/L (38-126); ANION GAP 9.1 MEQ/L (5-15); BLOOD UREA NITROGEN 22 mg/dL (9-20); CHLORIDE 106 mmol/L (98-107); Calcium 9.1 mg/dL (8.4-10.2); Carbon Dioxide 27 mmol/L (22-30); Creatinine 1 0.76 mg/dL (0.66-1.25); EST GLOMERULAR FILTRATION RATE > 60.0 ML/MIN; Glucose 83 mg/dL (74-106); SGOT/AST 30 U/L (17-59); SGPT/ALT 21 U/L (0-50); SODIUM 138 mmol/L (137-145); Total Protein 6.9 g/dL (6.3-8.2)
[2020-09-24] MEDS ORDERED: Cyclobenzaprine 10 MG PO PRN (07:45)
--- NOTE | 2020-09-24 08:00 | XRAY ---
Indication: Pain. Comparison: July 04, 2020. Portable chest remains clear with incidental left apical calcified granuloma. Heart and mediastinal structures within normal limits with again left AICD. Bony thorax intact again with mild osteopenia and degenerative changes. Impression: Continued nonacute chest with chronic features.
--- NOTE | 2020-09-24 08:07 | XRAY ---
Indication: Neck pain. Comparison: February 16, 2020. 3 view cervical spine unchanged again demonstrating mild/moderate C4-C7 degenerative spondylosis, minimal right carotid calcifications, left apical calcified granuloma, and partially visualized left AICD. No new/acute bony, articular, or soft tissue abnormalities.
[2020-09-24] MEDS: Pepcid 20 MG VIAL IV SCH (09:18)
[2020-09-24] MEDS: NEURONTIN 300 MG PO SCH ×2 (09:18→13:02)
[2020-09-24] MEDS: Zestril 10 MG PO SCH (09:19)
[2020-09-24] MEDS: Toprol Xl 50 MG PO SCH (09:19)
[2020-09-24] MEDS ORDERED: NON-FORMULARY ITEM (Fluoxetine Hcl [Fluoxetine Hcl] 40 MG) PO SCH (10:00)
[2020-09-24] MEDS ORDERED: ECOTRIN 81 MG PO SCH (10:00)
[2020-09-24] MEDS ORDERED: NORVASC 5 MG PO SCH (10:00)
[2020-09-24] MEDS ORDERED: NON-FORMULARY ITEM (Potassium Chloride 20 Meq [Klor-Con 20 Meq] 20 MEQ) PO SCH (10:00)
[2020-09-24] MEDS ORDERED: ZOCOR 20MG PO SCH (10:00)
[2020-09-24] MEDS ORDERED: Prozac 20 MG PO SCH (10:00)
[2020-09-24] MEDS ORDERED: Klor Con 10 MEQ PO SCH (10:00)
[2020-09-24] MEDS ORDERED: NON-FORMULARY ITEM (Pravastatin Sodium [Pravachol] 80 MG) PO SCH (10:00)
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
--- NOTE | 2020-09-24 15:14 | PCM.DCORD ---
- Discharge Disposition: Home, Self-Care Condition: Stable Prescriptions: Continue Potassium Chloride 20 Meq [Klor-Con 20 MEQ] 20 meq PO DAILY Fluticasone/Salmeterol Disc [Advair 250-50 Diskus 14 Dose] 2 puffs IH BID Gabapentin 600 mg PO QID Amlodipine Besylate 2.5 mg PO DAILY #30 tablet Ipratropium/Albuterol Sulfate [Combivent Inhaler] 14.7 gm IH BIDPRN PRN #1 inhaler PRN Reason: Shortness Of Breath/Wheezing Aspirin EC 81 mg [Ecotrin 81 mg] 81 mg PO DAILY #30 tablet Cyclobenzaprine HCl [Flexeril] 10 mg PO BIDPRN PRN #60 tablet PRN Reason: Moderate Pain Fluoxetine HCl 40 mg PO DAILY #30 cap Nitroglycerin 0.4 mg (Ed) [Nitrostat 0.4 MG (ED)] 0.4 mg SL UD PRN #25 tablet PRN Reason: Pain Pravastatin Sodium [Pravachol] 80 mg PO DAILY #30 tablet Metoprolol Succinate 50 mg [Toprol Xl 50 MG] 50 mg PO BID #60 tablet Lisinopril 10 mg [Zestril 10 MG] 10 mg PO BID #60 tablet Additional Instructions: CALL AND MAKE FOLLOW UP APPOINTMENT WITH DR MAYES SOON POSSIBLE. CALL AND MAKE APPOINTMENT WITH DR HEATON FOR NECK PAIN. Follow up with: STEPHANIE SIMS [Primary Care Provider] - 1 Week
[2020-09-24 16:32] VITALS: BP 123/70; PULSE 67; O2SAT 97
[2020-09-25] MEDS ORDERED: Zithromax 250 MG TABLET PO SCH (10:00)
== END 2020-09-24 16:25 | disposition home or self-care (01) ==
LOC: ED 16:54 → MED SURG 22:33
PROVIDERS: ADMIT Family Medicine; ATTEND Family Medicine
DX: Z45.02 Encounter for adjustment and management of automatic implantable cardiac defibrillator (principal); J44.9 Chronic obstructive pulmonary disease, unspecified; I11.9 Hypertensive heart disease without heart failure; M54.2 Cervicalgia; Z79.899 Other long term (current) drug therapy; E78.00 Pure hypercholesterolemia, unspecified; J02.9 Acute pharyngitis, unspecified
CPT/HCPCS: 36000; 36415; 71045; 72040; 80053; 83735; 83880; 84484; 85025; 87651; 93005; 93041; 93268; 94640; 94760; 96365; 99285; G0378; 96375; J1885; J3475; A9270-GY

== ENCOUNTER 2020-09-29 11:43 | Emergency (ER) | payer MEDICARE ==
[2020-09-29] MEDS ORDERED: BABY ASPIRIN 81 MG CHEW PO ONE (11:46)
[2020-09-29] MEDS ORDERED: Cordarone 150 MG/3 ML Injection IV ONE (11:48)
[2020-09-29] MEDS ORDERED: Cordarone 150 MG/3 ML Injection ONE (11:52)
[2020-09-29] MEDS ORDERED: NEXTERONE 360 MG/200 ML BAG 360 MG/200 ML PLAST..BAG IV ONE (11:52)
[2020-09-29] MEDS ORDERED: D5w 100ML Mini Bag 100 ML 100 ML IV ONE (11:53)
[2020-09-29] MEDS ORDERED: NEXTERONE 360 MG/200 ML BAG 360 MG/200 ML PLAST..BAG IV SCH (12:00)
[2020-09-29] MEDS ORDERED: Zofran 4 MG/2 ML VIAL ONE (12:06)
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
--- NOTE | 2020-09-29 12:17 | XRAY ---
Indication: Palpitations. Comparison: September 23, 2020. Portable chest again demonstrates normal heart and lungs with incidental left AICD. No new/acute findings.
[2020-09-29] MEDS ORDERED: Zofran 4 MG/2 ML VIAL IV ONE (12:26)
[2020-09-29 12:39] LABS: Absolute Neutrophil Ct (ANC) 3.81 (1.4-6.9); BASOPHIL % 0.1 % (0.0-0.4); Basophil (Absolute #) 0.01 (0-0.4); Eosinophil (Absolute #) 0.07 (0-0.5); Hematocrit 48.1 % (42-50); Hemoglobin 15.5 gm/dl (12.5-18.0); Lymphocyte (Absolute #) 2.34 (1.0-4.6); Lymphocytes % 34.5 % (24.0-44.0); Mean Corpuscular Hemoglobin 31.6 pg (26-32); Mean Corpuscular Hgb Concent. 32.2 g/dl (32-36); Mean Platelet Volume 10.7 fl (7.5-11.0); Monocyte (Absolute #) 0.55 (0.0-1.3); Monocytes % 8.1 % (0.0-12.0); Neutrophil % 56.3 % (36.0-66.0); Platelet Count 180 K/mm3 (150-450); Red Blood Count 4.91 M/mm3 (4.1-5.6); White Blood Count 6.8 K/mm3 (4.0-10.5)
[2020-09-29 12:58] LABS: ALBUMIN 4.3 g/dL (3.5-5.0); ALKALINE PHOSPHATASE 109 U/L (38-126); ANION GAP 14.1 MEQ/L (5-15); BLOOD UREA NITROGEN 14 mg/dL (9-20); CHLORIDE 101 mmol/L (98-107); Calcium 9.8 mg/dL (8.4-10.2); Carbon Dioxide 25 mmol/L (22-30); Creatinine 1 0.95 mg/dL (0.66-1.25); EST GLOMERULAR FILTRATION RATE > 60.0 ML/MIN; Glucose 185 mg/dL (74-106); NT PRO BNP 462 pg/mL (0-900); Potassium 3.5 mmol/L (3.5-5.1); SGOT/AST 50 U/L (17-59); SGPT/ALT 27 U/L (0-50); SODIUM 137 mmol/L (137-145)
[2020-09-29 13:12] VITALS: O2SAT 97
[2020-09-29 13:23] VITALS: BP 129/77; PULSE 106
== END 2020-09-29 13:58 | disposition short-term general hospital (02) ==
LOC: ED 11:43
DX: I49.01 Ventricular fibrillation (principal); I47.2 Ventricular tachycardia; I10 Essential (primary) hypertension; I25.10 Atherosclerotic heart disease of native coronary artery without angina pectoris; E78.00 Pure hypercholesterolemia, unspecified; J44.9 Chronic obstructive pulmonary disease, unspecified; Z79.899 Other long term (current) drug therapy
CPT/HCPCS: 36000; 36415; 71045; 80053; 83880; 84484; 85025; 93005; 93041; 94760; 96365; 96374; 99285; 99291; J0282; J2405; A9270-GY

== ENCOUNTER 2021-02-25 13:15 | Emergency (ER) | payer MEDICARE ==
[2021-02-25 13:30] VITALS: BP 150/87; PULSE 55; O2SAT 97
[2021-02-25] MEDS ORDERED: TORAdol 30 mg Injection IM ONE (13:51)
[2021-02-25] MEDS ORDERED: Norflex 60 MG/2 ML IM ONE (13:52)
[2021-02-25] MEDS ORDERED: TORAdol 30 mg Injection ONE (14:08)
[2021-02-25] MEDS ORDERED: Norflex 60 MG/2 ML ONE (14:08)
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
== END 2021-02-25 14:27 | disposition home or self-care (01) ==
LOC: ED 13:15
DX: S39.012A Strain of muscle, fascia and tendon of lower back, initial encounter (principal); X50.0XXA Overexertion from strenuous movement or load, initial encounter; Y92.9 Unspecified place or not applicable; Y99.9 Unspecified external cause status; M54.5 Low back pain; I25.10 Atherosclerotic heart disease of native coronary artery without angina pectoris; I10 Essential (primary) hypertension; E78.00 Pure hypercholesterolemia, unspecified; Z95.810 Presence of automatic (implantable) cardiac defibrillator
CPT/HCPCS: 96372; 99283; J1885; J2360

== ENCOUNTER 2021-03-09 19:43 | Emergency (ER) | payer MEDICARE ==
[2021-03-09] MEDS ORDERED: Sodium Chloride 0.9% 1000 ML 1,000 ML IV SCH (20:00)
[2021-03-09 20:01] LABS: Absolute Neutrophil Ct (ANC) 4.98 (1.4-6.9); BASOPHIL % 0.2 % (0.0-0.4); Basophil (Absolute #) 0.02 (0-0.4); Eosinophil % 5.3 % (0.00-5.0); Eosinophil (Absolute #) 0.53 (0-0.5); Hematocrit 42.5 % (42-50); Hemoglobin 13.8 gm/dl (12.5-18.0); Lymphocyte (Absolute #) 3.41 (1.0-4.6); Lymphocytes % 33.8 % (24.0-44.0); Mean Cell Volume 97.3 fl (78-100); Mean Corpuscular Hemoglobin 31.6 pg (26-32); Mean Corpuscular Hgb Concent. 32.5 g/dl (32-36); Monocyte (Absolute #) 1.15 (0.0-1.3); Monocytes % 11.4 % (0.0-12.0); Neutrophil % 49.3 % (36.0-66.0); Platelet Count 290 K/mm3 (150-450); Red Blood Count 4.37 M/mm3 (4.1-5.6); Red Cell Distribution Width 13.1 % (11.5-14.0); White Blood Count 10.1 K/mm3 (4.0-10.5)
[2021-03-09] MEDS ORDERED: Sodium Chloride 0.9% 1000 ML 1,000 ML ONE (20:15)
[2021-03-09] MEDS ORDERED: Cardizem IV 50 MG/10 ML IV ONE ×2 (20:17→20:19)
[2021-03-09] MEDS ORDERED: CARDIZEM DRIP 100 MG/100 ML D5W 100 ML IV PRN (20:18)
[2021-03-09 20:21] LABS: ALBUMIN 4.4 g/dL (3.5-5.0); ALKALINE PHOSPHATASE 95 U/L (38-126); BLOOD UREA NITROGEN 16 mg/dL (9-20); CHLORIDE 102 mmol/L (98-107); Calcium 9.4 mg/dL (8.4-10.2); Carbon Dioxide 23 mmol/L (22-30); Creatinine 1 1.04 mg/dL (0.66-1.25); EST GLOMERULAR FILTRATION RATE > 60.0 ML/MIN; Glucose 168 mg/dL (74-106); MAGNESIUM 1.9 mg/dL (1.6-2.3); NT PRO BNP 1160 pg/mL (0-900); Potassium 3.7 mmol/L (3.5-5.1); SGOT/AST 34 U/L (17-59); SGPT/ALT 20 U/L (0-50); SODIUM 140 mmol/L (137-145); Total Protein 7.8 g/dL (6.3-8.2)
[2021-03-09] MEDS ORDERED: CARDIZEM DRIP 100 MG/100 ML D5W 100 ML IV ONE (20:24)
[2021-03-09] MEDS ORDERED: TRANDATE 20 MG/4 ML SYRINGE IV ONE ×3 (20:33→20:43)
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
[2021-03-09] MEDS ORDERED: Lanoxin 0.5 MG/2 ML INJECTION IV ONE (20:44)
[2021-03-09] MEDS ORDERED: Lanoxin 0.5 MG/2 ML INJECTION ONE (20:49)
[2021-03-09 20:56] VITALS: O2SAT 98
[2021-03-09 21:17] VITALS: BP 150/109; PULSE 121
--- NOTE | 2021-03-09 22:06 | XRAY ---
Indication: Short of breath. Comparison: September 29, 2020. Portable chest remains clear again with incidental small left apical calcified granuloma. Heart not enlarged again with left AICD. Bony thorax intact again with minimal degenerative changes. Impression: Continued nonacute chest with chronic features.
== END 2021-03-09 21:10 | disposition short-term general hospital (02) ==
LOC: ED 19:43
DX: I48.91 Unspecified atrial fibrillation (principal); I10 Essential (primary) hypertension; E78.00 Pure hypercholesterolemia, unspecified; I25.10 Atherosclerotic heart disease of native coronary artery without angina pectoris; J44.9 Chronic obstructive pulmonary disease, unspecified; Z95.810 Presence of automatic (implantable) cardiac defibrillator
CPT/HCPCS: 36000; 36415; 71045; 80053; 83735; 83880; 84484; 85025; 85379; 93005; 93041; 96365; 96374; 96375; 99285; 99291; J1160

== ENCOUNTER 2022-06-13 15:18 | Observation (INO) | payer MEDICARE ==
[2022-06-13] MEDS ORDERED: Cardizem IV 50 MG/10 ML IV ONE (15:38)
[2022-06-13] MEDS: CARDIZEM DRIP 100 MG/100 ML D5W 100 ML IV PRN (15:44)
[2022-06-13 15:52] LABS: Absolute Neutrophil Ct (ANC) 5.51 x10^3/uL (1.4-6.9); Basophil (Absolute #) 0.05 x10^3/uL (0-0.4); Eosinophil % 2.6 % (0.00-5.0); Eosinophil (Absolute #) 0.22 x10^3/uL (0-0.5); Hematocrit 42.1 % (42-50); Hemoglobin 13.5 g/dL (12.5-18.0); Lymphocyte (Absolute #) 1.36 x10^3/uL (1.0-4.6); Lymphocytes % 16.1 % (24.0-44.0); Mean Cell Volume 95.9 fL (78-100); Mean Corpuscular Hemoglobin 30.8 pg (26-32); Mean Corpuscular Hgb Concent. 32.1 g/dL (32-36); Mean Platelet Volume 11.7 fL (7.5-11.0); Monocyte (Absolute #) 1.25 x10^3/uL (0.0-1.3); Monocytes % 14.8 % (0.0-12.0); Neutrophil % 65.4 % (36.0-66.0); Platelet Count 304 x10^3/uL (150-450); Red Blood Count 4.39 x10^6/uL (4.1-5.6); White Blood Count 8.4 x10^3/uL (4.0-10.5)
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
--- NOTE | 2022-06-13 16:25 | XRAY ---
Indication: Short of breath 1 week. Comparison: March 09, 2021 Portable chest remains clear with stable left apical calcified granuloma. Heart not enlarged for AP portable technique again with left AICD. Bony thorax intact again with mild osteopenia and degenerative changes. Impression: Continued nonacute chest with chronic features.
[2022-06-13 16:40] LABS: ALBUMIN 4.1 g/dL (3.5-5.0); ALKALINE PHOSPHATASE 91 U/L (38-126); BLOOD UREA NITROGEN 22 mg/dL (9-20); CHLORIDE 107 mmol/L (98-107); Calcium 9.1 mg/dL (8.4-10.2); Carbon Dioxide 25 mmol/L (22-30); Creatinine 1 0.95 mg/dL (0.66-1.25); EST GLOMERULAR FILTRATION RATE > 60.0 ML/MIN; Glucose 85 mg/dL (74-106); MAGNESIUM 2.1 mg/dL (1.6-2.3); NT PRO BNP 5730 pg/mL (0-900); Potassium 4.6 mmol/L (3.5-5.1); SGOT/AST 46 U/L (17-59); SGPT/ALT 36 U/L (0-50); SODIUM 140 mmol/L (137-145); Total Protein 7.4 g/dL (6.3-8.2)
[2022-06-13 17:18] LABS: INFLUENZA A NEGATIVE (NEGATIVE); INFLUENZA B NEGATIVE (NEGATIVE); RESPIRATORY SYNCTIAL VIRUS NEGATIVE (Negative); SARS-CoV-2 Xpert Express NEGATIVE (NEGATIVE)
[2022-06-13] MEDS ORDERED: DUONEB 0.5-3 MG/3 ml Neb IH PRN (17:42)
[2022-06-13] MEDS ORDERED: Zofran 4 MG/2 ML VIAL IV PRN (17:42)
[2022-06-13] MEDS ORDERED: TYLENOL 325 MG PO PRN (17:42)
[2022-06-13] MEDS: Advair Hfa 115/21 Common canister IH SCH (19:15)
[2022-06-13 19:29] LABS: Epithelial Cells RARE /HPF (FEW); Mucus SLIGHT /HPF (NEGATIVE); RBC 0-2 /HPF (0-2); WBC 0-2 /HPF (0-5)
[2022-06-13 19:34] LABS: Appearance CLEAR (CLEAR); Bilirubin NEGATIVE (NEGATIVE); Glucose NEGATIVE (NEGATIVE); Ketones NEGATIVE (NEGATIVE)
[2022-06-13 19:35] LABS: Bacteria NONE SEEN /HPF (NEGATIVE); Dipstick done @ ? MAIN LAB; Nitrite NEGATIVE (NEGATIVE); Ph 6.5 (5-6); Protein,Urine Dip NEGATIVE (Negative); RBC NEGATIVE Ery/ul (0-5); Specific Gravity 1.025 (1.005-1.025); Urine Cultured Indicated? NO; Urobilinogen 1 mg/dL (0-1)
[2022-06-13] MEDS ORDERED: ATARAX 25 MG PO PRN (19:47)
[2022-06-13] MEDS: Zestril 10 MG PO SCH (20:51)
[2022-06-13] MEDS: XARELTO 10 MG TABLET PO SCH (20:51)
[2022-06-13] MEDS: Toprol Xl 100 MG PO SCH (20:51)
[2022-06-13] MEDS: Neurontin PO SCH (20:51)
[2022-06-14] MEDS: CARDIZEM DRIP 100 MG/100 ML D5W 100 ML IV PRN (02:01)
[2022-06-14 04:46] LABS: Absolute Neutrophil Ct (ANC) 4.38 x10^3/uL (1.4-6.9); Basophil (Absolute #) 0.04 x10^3/uL (0-0.4); Eosinophil (Absolute #) 0.21 x10^3/uL (0-0.5); Hemoglobin 12.3 g/dL (12.5-18.0); Lymphocyte (Absolute #) 1.37 x10^3/uL (1.0-4.6); Lymphocytes % 19.5 % (24.0-44.0); Mean Cell Volume 94.8 fL (78-100); Mean Corpuscular Hemoglobin 30.7 pg (26-32); Mean Corpuscular Hgb Concent. 32.4 g/dL (32-36); Mean Platelet Volume 10.6 fL (7.5-11.0); Monocyte (Absolute #) 0.98 x10^3/uL (0.0-1.3); Neutrophil % 62.5 % (36.0-66.0); Platelet Count 243 x10^3/uL (150-450); Red Blood Count 4.01 x10^6/uL (4.1-5.6); Red Cell Distribution Width 15.8 % (11.5-14.0)
[2022-06-14 05:26] LABS: ANION GAP 9.7 MEQ/L (5-15); BLOOD UREA NITROGEN 21 mg/dL (9-20); CHLORIDE 105 mmol/L (98-107); Calcium 8.6 mg/dL (8.4-10.2); Carbon Dioxide 29 mmol/L (22-30); Creatinine 1 0.92 mg/dL (0.66-1.25); EST GLOMERULAR FILTRATION RATE > 60.0 ML/MIN; Glucose 88 mg/dL (74-106); Potassium 3.9 mmol/L (3.5-5.1); SODIUM 140 mmol/L (137-145)
[2022-06-14] MEDS: Advair Hfa 115/21 Common canister IH SCH ×2 (07:01→18:05)
[2022-06-14] MEDS ORDERED: LASIX 20 MG PO PRN (07:08)
[2022-06-14] MEDS: Neurontin PO SCH ×4 (08:11→22:00)
[2022-06-14] MEDS: ECOTRIN 81 MG PO SCH (08:11)
[2022-06-14] MEDS: FEOSOL 325 MG PO SCH (08:12)
[2022-06-14] MEDS: Zocor 10MG PO SCH (08:12)
[2022-06-14] MEDS: Protonix 40MG Tablet PO SCH (08:12)
[2022-06-14] MEDS: Cardizem CD PO SCH (08:12)
[2022-06-14] MEDS: Zestril 10 MG PO SCH ×2 (08:12→22:00)
[2022-06-14] MEDS: ZOLOFT 50 MG TABLET PO SCH (08:12)
[2022-06-14] MEDS: Toprol Xl 100 MG PO SCH ×2 (08:12→22:00)
[2022-06-14] MEDS ORDERED: NON-FORMULARY ITEM (Atorvastatin Calcium 20 MG Tab) PO SCH (10:00)
[2022-06-14] MEDS ORDERED: ZOCOR 20MG PO SCH (10:00)
[2022-06-14] MEDS ORDERED: PROTONIX 40 MG IV IV SCH (10:00)
[2022-06-14] MEDS ORDERED: FLUZONE QUAD 2022-2023 SYRINGE IM ONE (12:00)
[2022-06-14] MEDS: XARELTO 10 MG TABLET PO SCH (22:00)
[2022-06-15] MEDS: Advair Hfa 115/21 Common canister IH SCH (06:51)
[2022-06-15] MEDS: ECOTRIN 81 MG PO SCH (09:36)
[2022-06-15] MEDS: Neurontin PO SCH ×2 (09:36→13:48)
[2022-06-15] MEDS: Cardizem CD PO SCH (09:36)
[2022-06-15] MEDS: Zestril 10 MG PO SCH (09:36)
[2022-06-15] MEDS: FEOSOL 325 MG PO SCH (09:36)
[2022-06-15] MEDS: Zocor 10MG PO SCH (09:36)
[2022-06-15] MEDS: ZOLOFT 50 MG TABLET PO SCH (09:36)
[2022-06-15] MEDS: Toprol Xl 100 MG PO SCH (09:36)
[2022-06-15] MEDS: Protonix 40MG Tablet PO SCH (09:36)
[2022-06-15 11:27] VITALS: BP 134/91; PULSE 57; O2SAT 95
--- NOTE | 2022-06-15 14:01 | PCM.DS ---
Discharge Summary Date of Admission: 06/13/22 17:38 Admitting Physician: STEPHANIE SIMS Primary Care Provider: DOMINIQUE MORATAYA Allergies Allergies codeine [Codeine] Allergy (Mild, Verified 03/09/21 19:52) Hives pt states hives are quick onset Hospital Summary - Hospital Course Hospital Course: Pt is a 66 yo male admitted by Dr. Sims with PMhx afib, pacemaker/defib (on xarelto), CAD, hyperlipidemia, HTN, COPD, anx/depr admitted through ER with afib with RVR. He had been having palpitations x 1 week. HR was in 120s in ER. was admitted, started on cardizem drip, then transitioned to 180mg cardizem cd daily. He is doing well, HR in 70s-80s. He did have one approx 10 beat run of ventricular tachycardia; he was up to the bathroom and asymptomatic. I discussed with Dr. Malachi Wick admissions coordinator for Dr. Mayes; will check pt's potassium and magnesium, as long as they are ok, fine to send pt home. - Vitals & Intake/Output Vital Signs: Vital Signs Temperature 97.0 F 06/15/22 11:27 Pulse Rate 57 L 06/15/22 11:27 Respiratory Rate 18 06/15/22 11:27 Blood Pressure 134/91 06/15/22 11:27 O2 Sat by Pulse Oximetry 95 06/15/22 11:27 Intake & Output: Intake & Output 06/13/22 06/14/22 06/15/22 06/16/22 11:59 11:59 11:59 10:59 Intake Total 600 1200 Output Total 725 Balance -125 1200 Weight 63.1 kg 63.3 kg - Lab Result Diagrams: 06/14/22 04:15 06/15/22 13:40 - Radiology Exams Ordered Rad Exams-Entire Visit: Radiology Procedures Category Date Time Status CHEST 1 VIEW (PORTABLE) Stat Exams 06/13/22 15:38 Completed - Procedures and Test Procedures and Tests throughout Hospitalization: Therapy Orders & Screens 06/13/22 17:55 Respiratory MDI UD Comment: Diagnosis: af rvr Respiratory Therapy Assessment DAILY Comment: Diagnosis: af rvr Discharge Exam General Appearance: no apparent distress, alert Neurologic Exam: oriented x 3, cooperative Eye Exam: eyes nml inspection Ears, Nose, Throat Exam: moist mucous membranes Neck Exam: normal inspection Respiratory Exam: normal breath sounds, lungs clear, No crackles/rales, No rhonchi, No wheezing Cardiovascular Exam: normal heart sounds, irregular (regular rate), No murmur Gastrointestinal/Abdomen Exam: soft, normal bowel sounds, No tenderness, No distention, No mass, No guarding, No rebound Back Exam: normal inspection, No rash Extremity Exam: normal inspection, No pedal edema, No swelling Skin Exam: normal color, warm, dry, No rash Final Diagnosis/Problem List - Final Discharge Diagnosis/Problem (1) Atrial fibrillation with RVR Current Visit: Yes Status: Resolved Assessment & Plan: RVR resolved, will send home on cardizem 180 CD daily as long as electrolytes ok this morning. Spoke with pharmacist about possible interaction between cardizem and xarelto; can diminish the metabolism of xarelto. Pt needs to speak with his leather production machine operator about this next week, as the dose of xarelto may need to be decreased. Code(s): I48.91 - UNSPECIFIED ATRIAL FIBRILLATION (2) Ventricular tachyarrhythmia Current Visit: No Status: Acute Code(s): I47.2 - VENTRICULAR TACHYCARDIA (3) Coronary artery disease Current Visit: No Status: Chronic Code(s): I25.10 - ATHSCL HEART DISEASE OF [place] CORONARY ARTERY W/O ANG PCTRS - Discharge Disposition: Home, Self-Care Condition: Stable Prescriptions: New dilTIAZem HCl [Diltiazem 24Hr Cd] 180 mg PO DAILY #30 cap Continue Ipratropium/Albuterol Sulfate [Combivent Inhaler] 14.7 gm IH BIDPRN PRN #1 inhaler PRN Reason: Shortness Of Breath/Wheezing Aspirin EC 81 mg [Ecotrin 81 mg] 81 mg PO DAILY #30 tablet Lisinopril 10 mg [Zestril 10 MG] 10 mg PO BID #60 tablet Rivaroxaban [Xarelto] 20 mg PO DAILY Fluticasone Propion/Salmeterol [Wixela 250-50 Inhub] 1 amp IH TID Sertraline HCl 50 mg [Zoloft 50 mg Tablet] 50 mg PO DAILY PANTOPRAZOLE 40 mg Tablet [Protonix 40MG Tablet] 40 mg PO DAILY Metoprolol Succinate 100 mg [Toprol Xl 100 MG] 100 mg PO BID Hydroxyzine HCl 25 mg [Atarax 25 mg] 25 mg PO TID PRN PRN Reason: Anxiety Gabapentin 400 mg PO QID Furosemide 20 mg [Lasix 20 mg] 20 mg PO DAILY PRN PRN Reason: Shortness Of Breath Ferrous Sulfate 325 mg PO DAILY Atorvastatin Calcium [Lipitor 20MG Tablet] 20 mg PO DAILY Discontinued Diltiazem HCl [Diltiazem ER] 120 mg PO DAILY Additional Instructions: WE SENT A REFERRAL TO [facility] FOR HELP AT HOME SERVICES FOR YOU. THEY WILL CALL YOU TO FINISH THE REFERRAL AFTER YOU ARE DISCHARGED. You need to speak with your PCP and/or leather production machine operator in the next 1 week to determine if you need a lower dose of xarelto (there can be an interaction with xarelto and diltiazem). Do NOT stop any of your medicines without a doctor's order. Follow up with: DEBO MAYES [CONSULTING PHYSICIAN] - DOMINIQUE MORATAYA NP [Primary Care Provider] -
[2022-06-15 14:03] LABS: MAGNESIUM 1.8 mg/dL (1.6-2.3); Potassium 3.7 mmol/L (3.5-5.1)
== END 2022-06-15 15:09 | disposition home or self-care (01) ==
LOC: ED 15:18 → ICU 17:38 → MED SURG 06-14 09:10
PROVIDERS: ADMIT Family Medicine; ATTEND Family Medicine
DX: I48.20 Chronic atrial fibrillation, unspecified (principal); R00.0 Tachycardia, unspecified; I25.10 Atherosclerotic heart disease of native coronary artery without angina pectoris; I10 Essential (primary) hypertension; E78.5 Hyperlipidemia, unspecified; J44.9 Chronic obstructive pulmonary disease, unspecified; Z79.01 Long term (current) use of anticoagulants; Z79.899 Other long term (current) drug therapy; Z20.828 Contact with and (suspected) exposure to other viral communicable diseases
CPT/HCPCS: 0241U; 36000; 36415; 71045; 80048; 80053; 81015; 83735; 83880; 84132; 84484; 85025; 93005; 93041; 93268; 94640; 94762; 96365; 96366; 96374; 99285; G0008; G0378; 90686; A9270-GY

== ENCOUNTER 2022-12-10 11:23 | Emergency (ER) | payer MEDICARE ==
[2022-12-10] MEDS ORDERED: CARDIZEM DRIP 100 MG/100 ML D5W 100 ML IV PRN (11:44)
[2022-12-10] MEDS ORDERED: CARDIZEM DRIP 100 MG/100 ML D5W 100 ML IV ONE (11:49)
[2022-12-10] MEDS ORDERED: Zofran 4 MG/2 ML VIAL IV ONE (11:57)
[2022-12-10] MEDS ORDERED: Zofran 4 MG/2 ML VIAL ONE (11:59)
--- NOTE | 2022-12-10 12:00 | XRAY ---
Indication: Short of breath. Comparison: June 13, 2022 Portable chest demonstrates new cardiomegaly and moderate left base infiltrate/atelectasis/effusion concerning for cardiac decompensation. Superimposed pneumonia not completely excluded. Right lung clear. Bony thorax intact again with osteopenia, degenerative changes, and left AICD.
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
[2022-12-10 12:16] LABS: Absolute Neutrophil Ct (ANC) 9.48 x10^3/uL (1.4-6.9); BASOPHIL % 0.2 % (0.0-0.4); Basophil (Absolute #) 0.02 x10^3/uL (0-0.4); Eosinophil % 0.2 % (0.00-5.0); Eosinophil (Absolute #) 0.02 x10^3/uL (0-0.5); Hematocrit 39.4 % (42-50); Hemoglobin 12.5 g/dL (12.5-18.0); IMMATURE GRAN # 0.06 x10^3u/L (0.00-0.03); IMMATURE GRAN % 0.5 % (0.00-0.4); Lymphocyte (Absolute #) 0.69 x10^3/uL (1.0-4.6); Lymphocytes % 6.1 % (24.0-44.0); Mean Cell Volume 101.5 fL (78-100); Mean Corpuscular Hemoglobin 32.2 pg (26-32); Mean Corpuscular Hgb Concent. 31.7 g/dL (32-36); Mean Platelet Volume 10.9 fL (7.5-11.0); Monocyte (Absolute #) 1.08 x10^3/uL (0.0-1.3); Monocytes % 9.5 % (0.0-12.0); NUCLEATED RBC # 0.02 x10^3u/L (0.00-0.01); NUCLEATED RBC % 0.2 % (0.00-0.1); Neutrophil % 83.5 % (36.0-66.0); Platelet Count 342 x10^3/uL (150-450); Red Blood Count 3.88 x10^6/uL (4.1-5.6); Red Cell Distribution Width 15.5 % (11.5-14.0); White Blood Count 11.4 x10^3/uL (4.0-10.5)
[2022-12-10] MEDS ORDERED: Phenergan 25 MG INJ*** 25 MG in Sodium Chloride 0.9% 100 ML IV ONE (12:42)
[2022-12-10 12:55] LABS: SGPT/ALT 77 U/L (0-50)
[2022-12-10 12:59] LABS: ALBUMIN 4.1 g/dL (3.5-5.0); ALKALINE PHOSPHATASE 127 U/L (38-126); ANION GAP 16.6 MEQ/L (5-15); BLOOD UREA NITROGEN 21 mg/dL (9-20); CHLORIDE 100 mmol/L (98-107); Carbon Dioxide 26 mmol/L (22-30); Creatinine 1 0.87 mg/dL (0.66-1.25); EST GLOMERULAR FILTRATION RATE > 60.0 ML/MIN; Glucose 156 mg/dL (74-106); NT PRO BNPII 8340 pg/mL (<300); Potassium 4.1 mmol/L (3.5-5.1); SGOT/AST 112 U/L (17-59); SODIUM 138 mmol/L (137-145); Total Protein 8.4 g/dL (6.3-8.2)
[2022-12-10] MEDS ORDERED: Ntg 0.2MG/Ml in D5W GLASS*** 250 ML IV PRN (13:50)
[2022-12-10] MEDS ORDERED: Ntg 0.2MG/Ml in D5W GLASS*** 250 ML IV ONE (13:52)
[2022-12-10] MEDS ORDERED: Lasix 40 MG/4 ML IV ONE (13:52)
[2022-12-10] MEDS ORDERED: Lasix 40 MG/4 ML ONE (13:53)
[2022-12-10 14:50] LABS: INFLUENZA A NEGATIVE (NEGATIVE); INFLUENZA B NEGATIVE (NEGATIVE); RESPIRATORY SYNCTIAL VIRUS NEGATIVE (NEGATIVE); SARS-CoV-2 Xpert Express NEGATIVE (NEGATIVE)
[2022-12-10 15:30] LABS: Appearance Clear (Clear); Bacteria None Seen /HPF (None Seen); Bilirubin Negative (Negative); Blood Trace (Negative); Epithelial Cells None Seen /HPF (None Seen); Glucose, Urine Negative (Negative); Hyaline Casts NONE SEEN /LPF (0-2); Ketones Negative (Negative); Leukocyte Esterase Negative (Negative); Nitrite Negative (Negative); Ph 5.5 (4.6-8.0); Protein,Urine Dip Negative (Negative); RBC 0-2 /HPF (0-5); Urobilinogen 0.2 mg/dL (0.2); WBC 0-2 /HPF (0-5)
[2022-12-10 15:32] LABS: ADD URINE CULTURE? NO (NO)
[2022-12-10 16:10] VITALS: BP 146/97; PULSE 116; O2SAT 95
== END 2022-12-10 17:01 | disposition short-term general hospital (02) ==
LOC: ED 11:23
DX: I48.20 Chronic atrial fibrillation, unspecified (principal); R06.02 Shortness of breath; I11.0 Hypertensive heart disease with heart failure; I50.9 Heart failure, unspecified; E87.20 Acidosis, unspecified; E80.6 Other disorders of bilirubin metabolism; R79.89 Other specified abnormal findings of blood chemistry; R11.0 Nausea; E78.5 Hyperlipidemia, unspecified; Z79.01 Long term (current) use of anticoagulants; Z79.899 Other long term (current) drug therapy; Z20.828 Contact with and (suspected) exposure to other viral communicable diseases
CPT/HCPCS: 0241U; 36000; 36415; 71045; 80053; 81001; 83735; 83880; 84484; 85025; 93005; 93041; 94760; 96365; 96366; 96367; 96374; 96375; 99285; 99291; J1940; J2405; J2550

== ENCOUNTER 2023-01-26 16:17 | Emergency (ER) | payer MEDICARE ==
[2023-01-26] MEDS ORDERED: Sodium Chloride 0.9% 1000 ML 1,000 ML IV STA (16:32)
[2023-01-26] MEDS ORDERED: Zofran 4 MG/2 ML VIAL IV ONE ×2 (16:32→21:33)
[2023-01-26] MEDS ORDERED: Sodium Chloride 0.9% 1000 ML 1,000 ML ONE (16:39)
[2023-01-26] MEDS ORDERED: Zofran 4 MG/2 ML VIAL ONE ×2 (16:39→21:39)
[2023-01-26 17:10] LABS: Absolute Neutrophil Ct (ANC) 9.59 x10^3/uL (1.4-6.9); BASOPHIL % 0.3 % (0.0-0.4); Basophil (Absolute #) 0.04 x10^3/uL (0-0.4); Eosinophil % 0.5 % (0.00-5.0); Eosinophil (Absolute #) 0.06 x10^3/uL (0-0.5); Hematocrit 40.2 % (42-50); Hemoglobin 12.6 g/dL (12.5-18.0); IMMATURE GRAN # 0.05 x10^3u/L (0.00-0.03); IMMATURE GRAN % 0.4 % (0.00-0.4); Lymphocyte (Absolute #) 1.07 x10^3/uL (1.0-4.6); Lymphocytes % 8.9 % (24.0-44.0); Mean Cell Volume 102.3 fL (78-100); Mean Corpuscular Hemoglobin 32.1 pg (26-32); Mean Corpuscular Hgb Concent. 31.3 g/dL (32-36); Mean Platelet Volume 11.3 fL (7.5-11.0); Monocyte (Absolute #) 1.24 x10^3/uL (0.0-1.3); Monocytes % 10.3 % (0.0-12.0); Neutrophil % 79.6 % (36.0-66.0); Platelet Count 191 x10^3/uL (150-450); Red Blood Count 3.93 x10^6/uL (4.1-5.6); Red Cell Distribution Width 14.6 % (11.5-14.0); White Blood Count 12.1 x10^3/uL (4.0-10.5)
[2023-01-26 17:25] LABS: ALBUMIN 4.2 g/dL (3.5-5.0); ALKALINE PHOSPHATASE 127 U/L (38-126); BLOOD UREA NITROGEN 22 mg/dL (9-20); CHLORIDE 101 mmol/L (98-107); Carbon Dioxide 23 mmol/L (22-30); Creatinine 1 0.92 mg/dL (0.66-1.25); EST GLOMERULAR FILTRATION RATE > 60.0 ML/MIN; Glucose 125 mg/dL (74-106); LIPASE 31 U/L (23-300); Potassium 4.2 mmol/L (3.5-5.1); SGOT/AST 46 U/L (17-59); SGPT/ALT 38 U/L (0-50); SODIUM 137 mmol/L (137-145); Total Protein 8.4 g/dL (6.3-8.2)
[2023-01-26 17:47] LABS: INFLUENZA A NEGATIVE (NEGATIVE); INFLUENZA B NEGATIVE (NEGATIVE); RESPIRATORY SYNCTIAL VIRUS NEGATIVE (NEGATIVE); SARS-CoV-2 Xpert Express NEGATIVE (NEGATIVE)
--- NOTE | 2023-01-26 19:16 | XRAY ---
Indication: Short of breath. Comparison: December 10, 2022 Portable chest improved with near complete clearing left base infiltrate/atelectasis/effusion. Heart now within normal limits for AP portable technique again with left AICD. Remaining heart and lungs unremarkable.
[2023-01-26 19:27] LABS: Appearance Clear (Clear); Bacteria None Seen /HPF (None Seen); Bilirubin Negative (Negative); Blood Negative (Negative); Epithelial Cells None Seen /HPF (None Seen); Glucose, Urine Negative (Negative); Hyaline Casts NONE SEEN /LPF (0-2); Ketones Negative (Negative); Leukocyte Esterase Negative (Negative); Nitrite Negative (Negative); Ph 5.5 (4.6-8.0); Protein,Urine Dip Trace (Negative); RBC 0-2 /HPF (0-5); WBC 0-2 /HPF (0-5)
[2023-01-26 19:39] LABS: Amphetamine,Urine POSITIVE (NEGATIVE); Barbiturate,Urine NEGATIVE (NEGATIVE); Benzodiazepine,Urine NEGATIVE (NEGATIVE); Cocaine,Urine NEGATIVE (NEGATIVE); Methadone,Urine NEGATIVE (NEGATIVE); Opiate,Urine NEGATIVE (NEGATIVE); PCP,Urine NEGATIVE (NEGATIVE); THC,Urine POSITIVE (NEGATIVE)
[2023-01-26 20:00] LABS: ADD URINE CULTURE? NO (NO)
[2023-01-26] MEDS ORDERED: CARDIZEM DRIP 100 MG/100 ML D5W 100 ML IV PRN (21:02)
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
[2023-01-26] MEDS ORDERED: CARDIZEM DRIP 100 MG/100 ML D5W 100 ML IV ONE (21:39)
--- NOTE | 2023-01-26 21:42 | XRAY ---
CLINICAL HISTORY:Shortness of breath, for the evaluation of Pulmonary embolism; COMPARISON:None; TECHNIQUES:CT chest was performed using contrast with sagittal and coronal reformats; FINDINGS: The main pulmonary trunk, right and left pulmonary arteries with the ascending and descending branches are normally opacified with contrast. Mild dilatation of the pulmonary trunk with a diameter of 3.4 cm. The segmental branches are normal in caliber and show good contrast opacification with no evidence of filling defect/ thrombosis. No evidence of any focal filling defect seen. The aortic arch and visualized ascending aorta and descending aorta are normal. Mild to moderate pleural effusion seen on right side with mild pleural effusion on left side. Minimal pericardial effusion also noted. The heart is mildly enlarged in size with dilated left atrium. Cardiac pacing device with appropriately placed leads noted. Dependant confluencing ground glass haziness in bilateral lung bases with air trapping and few atelectatic bands in right lower lobe noted. A calcified nodule/granuloma in left upper lobe measuring 1.1 cm. No significant mediastinal lymphadenopathy. The thoracic spine shows degenerative changes. IMPRESSION: No evidence of acute thromboembolism. Mild to moderate pleural effusion on right side with mild pleural effusion on left side. Minimal pericardial effusion. Moderate cardiomegaly with a mildly dilated pulmonary trunk. Suggested echocardiographic correlation. Electronically Signed by: Janelle Lee MD. (01/26/2023 20:36:29 BIOINFORMATICS SPECIALIST;)
[2023-01-26 21:46] VITALS: BP 170/118
--- NOTE | 2023-01-26 21:50 | XRAY ---
CLINICAL HISTORY:Abdominal pain, nausea and vomiting; COMPARISON:None; TECHNIQUES:CT scan of the abdomen and pelvis was performed with & without IV contrast.Coronal and sagittal reconstructive images were also obtained. DLP: 2427.75; FINDINGS: Abdomen. The liver is of average size. No focal or diffuse parenchymal abnormality. The portal vein, intrahepatic biliary radicals, and bile ducts are normal. The spleen and adrenal glands are unremarkable. A thin-walled cystic density is noted in the head of the pancreas measuring 3 x 2.6 cm. No solid component is seen with it. The kidneys are unremarkable. They are normal in size and shape. No calculi or hydronephrosis. A well-defined simple cortical cyst measuring 25 x 15 mm seen at mid pole of left kidney. The gallbladder is distended. There is no evidence of wall thickening/ pericholecystic collection. The ascending colon, the transverse colon, the descending colon, visualized small bowel loops are unremarkable. Uncomplicated colonic diverticulosis noted. The abdominal aorta shows atherosclerotic changes with calcified plaques. There is no evidence of significant enlargement of the mesenteric or retroperitoneal lymph nodes. Pelvis. The urinary bladder is unremarkable. The rectosigmoid colon is unremarkable. The prostate is mildly enlarged, measuring 36 x 42 x 33 mm. No evidence of pelvic lymphadenopathy. The lumbar spine shows degenerative changes. Sections of lower thorax shows bilateral pleural effusion, more so on the right side with minimal pericardial effusion and cardiomegaly. IMPRESSION: Cystic density in the head of the pancreas. Differentials include simple pancreatic cyst, intraductal papillary mucinous neoplasm or pseudocyst. Further correlation with MRCP is advised. No acute abdominopelvic abnormality. Electronically Signed by: Janelle Lee MD. (01/26/2023 20:45:20 MASH FILTER OPERATOR;)
[2023-01-26 22:47] VITALS: PULSE 116
[2023-01-26 23:36] VITALS: O2SAT 93
== END 2023-01-26 22:40 | disposition short-term general hospital (02) ==
LOC: ED 16:17
DX: I48.20 Chronic atrial fibrillation, unspecified (principal); I11.0 Hypertensive heart disease with heart failure; I50.9 Heart failure, unspecified; J90 Pleural effusion, not elsewhere classified; F15.10 Other stimulant abuse, uncomplicated; F12.10 Cannabis abuse, uncomplicated; R10.10 Upper abdominal pain, unspecified; R11.2 Nausea with vomiting, unspecified; R07.9 Chest pain, unspecified; E78.5 Hyperlipidemia, unspecified; Z79.01 Long term (current) use of anticoagulants; Z79.899 Other long term (current) drug therapy; Z20.828 Contact with and (suspected) exposure to other viral communicable diseases
CPT/HCPCS: 0241U; 36000; 36415; 71045; 71260; 74177; 80053; 80307; 81001; 83605; 83690; 83880; 84484; 85025; 87040; 93005; 96365; 96374; 96376; 99285; 99291; J2405

== ENCOUNTER 2023-02-19 15:28 | Observation (INO) | payer MEDICARE ==
[2023-02-19] MEDS ORDERED: Sodium Chloride 0.9% 1000 ML 1,000 ML IV STA (16:01)
--- NOTE | 2023-02-19 16:45 | XRAY ---
CLINICAL HISTORY:pain COMPARISON:None. TECHNIQUE:X-ray the left knee AP, oblique, and lateral views. FINDINGS: Normal bone mineralization. No aggressive bony lesion is noted in the left knee. Narrowed medial femorotibial and patellofemoral joint spaces showing subchondral sclerosis. The lateral femorotibial is preserved. No definite fracture or dislocation. No joint effusion in the suprapatellar bursa. Soft tissues appear unremarkable. IMPRESSION: 1. Mild Osteoarthritic changes. 2. No acute bone abnormality is noted. DISCLAIMER:A subtle bone abnormality or fracture may not be readily apparent on x-rays, thus clinical correlation and further imaging including follow up CT, MRI, or follow up x-rays are advised as needed. Electronically Signed by: Janelle Lee MD. (02/19/2023 15:43:16 ACCOUNTING OFFICE MANAGER)
[2023-02-19] MEDS ORDERED: Sodium Chloride 0.9% 1000 ML 1,000 ML ONE (16:46)
[2023-02-19 16:47] LABS: VBG BASE EXCESS 4.5 (-2.0-2.0); VBG CARBOXYHEMOGLOBIN 2.3 % T HGB (0.0-6.9); VBG HCO3- 26.7 meq/L (22-28); VBG HEMOGLOBIN 15.5; VBG O2 SATURATION 65.6 (95-100); VBG pH 7.53 (7.32-7.42)
--- NOTE | 2023-02-19 16:47 | XRAY ---
CLINICAL HISTORY:pain COMPARISON:None. TECHNIQUE:X-ray of the left shoulder, AP view. FINDINGS: No aggressive bony lesion is noted. No evidence of fracture or dislocation noted. Mild acromioclavicular degenerative changes. Normal bone density seen. Normal articulation and joint spaces seen. IMPRESSION: 1. Early degenerative changes in the acromioclavicular joint. 2. No acute bone abnormality is noted in the left shoulder. DISCLAIMER:A subtle bone abnormality or fracture may not be readily apparent on x-rays, thus clinical correlation and further imaging including follow up CT, MRI, or follow up x-rays are advised as needed Electronically Signed by: Janelle Lee MD. (02/19/2023 15:45:16 REPAIR MILLER)
[2023-02-19 16:48] LABS: VBG POTASSIUM 6.3 (3.5-5.1)
[2023-02-19 17:09] LABS: Appearance Clear (Clear); Bacteria None Seen /HPF (None Seen); Bilirubin Negative (Negative); Blood Negative (Negative); Epithelial Cells None Seen /HPF (None Seen); Glucose, Urine Negative (Negative); Hyaline Casts NONE SEEN /LPF (0-2); Ketones Negative (Negative); Leukocyte Esterase Negative (Negative); Nitrite Negative (Negative); Protein,Urine Dip Negative (Negative); RBC 0-2 /HPF (0-5); WBC 0-2 /HPF (0-5)
[2023-02-19 17:10] LABS: ADD URINE CULTURE? NO (NO)
[2023-02-19 17:25] LABS: Absolute Neutrophil Ct (ANC) 3.83 x10^3/uL (1.4-6.9); BASOPHIL % 0.5 % (0.0-0.4); Basophil (Absolute #) 0.03 x10^3/uL (0-0.4); Eosinophil % 2.4 % (0.00-5.0); Eosinophil (Absolute #) 0.14 x10^3/uL (0-0.5); Hematocrit 44.8 % (42-50); Hemoglobin 14.5 g/dL (12.5-18.0); IMMATURE GRAN # 0.02 x10^3u/L (0.00-0.03); IMMATURE GRAN % 0.3 % (0.00-0.4); Lymphocyte (Absolute #) 1.06 x10^3/uL (1.0-4.6); Mean Cell Volume 98.7 fL (78-100); Mean Corpuscular Hemoglobin 31.9 pg (26-32); Mean Corpuscular Hgb Concent. 32.4 g/dL (32-36); Mean Platelet Volume 12.1 fL (7.5-11.0); Monocytes % 13.6 % (0.0-12.0); Neutrophil % 65.2 % (36.0-66.0); Platelet Count 193 x10^3/uL (150-450); Red Blood Count 4.54 x10^6/uL (4.1-5.6); Red Cell Distribution Width 13.8 % (11.5-14.0); White Blood Count 5.9 x10^3/uL (4.0-10.5)
[2023-02-19 17:47] LABS: INR 1.52 (0.8-3.0); PROTIME 16.1 SECONDS (9.4-12.5); PTT 38.5 SECONDS (25.1-36.5)
[2023-02-19 17:56] LABS: D-DIMER QUANTITATIVE 0.65 mg/L (0.0-0.50)
[2023-02-19 17:58] LABS: Erythrocyte Sedimentation Rate 58 mm/hr (0-15)
[2023-02-19 18:03] LABS: Amphetamine,Urine NEGATIVE (NEGATIVE); Barbiturate,Urine NEGATIVE (NEGATIVE); Benzodiazepine,Urine NEGATIVE (NEGATIVE); Cocaine,Urine NEGATIVE (NEGATIVE); Methadone,Urine NEGATIVE (NEGATIVE); Opiate,Urine NEGATIVE (NEGATIVE); PCP,Urine NEGATIVE (NEGATIVE); THC,Urine POSITIVE (NEGATIVE)
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
[2023-02-19 18:47] LABS: ALBUMIN 3.5 g/dL (3.5-5.0); ALKALINE PHOSPHATASE 80 U/L (38-126); AMYLASE 71 U/L (30-110); ANION GAP 14.5 MEQ/L (5-15); BLOOD UREA NITROGEN 28 mg/dL (9-20); CHLORIDE 105 mmol/L (98-107); Carbon Dioxide 21 mmol/L (22-30); Creatinine 1 1.16 mg/dL (0.66-1.25); EST GLOMERULAR FILTRATION RATE > 60.0 ML/MIN; Glucose 90 mg/dL (74-106); LIPASE 122 U/L (23-300); MAGNESIUM 1.9 mg/dL (1.6-2.3); NT PRO BNPII 2430 pg/mL (<300); Potassium 4.6 mmol/L (3.5-5.1); SGOT/AST 54 U/L (17-59); SGPT/ALT 37 U/L (0-50); SODIUM 137 mmol/L (137-145); Total Protein 7.5 g/dL (6.3-8.2)
[2023-02-19] MEDS ORDERED: LOPRESSOR INJECTION IV ONE (18:53)
[2023-02-19] MEDS: NEXTERONE 360 MG/200 ML BAG 360 MG/200 ML PLAST..BAG IV SCH (20:12)
[2023-02-19] MEDS ORDERED: MILK OF MAGNESIA 30 ML PO PRN (20:42)
[2023-02-19] MEDS ORDERED: TYLENOL 325 MG PO PRN (20:42)
[2023-02-19] MEDS ORDERED: MAALOX ES 30 ML UNIT DOSE PO PRN (20:42)
[2023-02-19] MEDS ORDERED: Zofran 4 MG/2 ML VIAL IV PRN (20:42)
[2023-02-19] MEDS ORDERED: Senokot-S Tablet PO PRN (20:42)
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
[2023-02-20] MEDS: CORTISONE 1% CREAM TP PRN ×2 (00:49→13:36)
[2023-02-20] MEDS: NEXTERONE 360 MG/200 ML BAG 360 MG/200 ML PLAST..BAG IV SCH ×4 (03:14→23:30)
[2023-02-20 04:25] LABS: ALBUMIN 3.8 g/dL (3.5-5.0); ALKALINE PHOSPHATASE 90 U/L (38-126); ANION GAP 13.1 MEQ/L (5-15); BLOOD UREA NITROGEN 27 mg/dL (9-20); CHLORIDE 104 mmol/L (98-107); Calcium 8.7 mg/dL (8.4-10.2); Carbon Dioxide 28 mmol/L (22-30); Glucose 132 mg/dL (74-106); MAGNESIUM 2.1 mg/dL (1.6-2.3); Potassium 4.2 mmol/L (3.5-5.1); SODIUM 141 mmol/L (137-145); Total Protein 7.6 g/dL (6.3-8.2)
[2023-02-20 04:29] LABS: Absolute Neutrophil Ct (ANC) 3.29 x10^3/uL (1.4-6.9); BASOPHIL % 0.4 % (0.0-0.4); Basophil (Absolute #) 0.02 x10^3/uL (0-0.4); Eosinophil % 3.8 % (0.00-5.0); Hematocrit 42.1 % (42-50); Hemoglobin 13.7 g/dL (12.5-18.0); IMMATURE GRAN # 0.02 x10^3u/L (0.00-0.03); IMMATURE GRAN % 0.4 % (0.00-0.4); Lymphocytes % 20.8 % (24.0-44.0); Mean Cell Volume 97.7 fL (78-100); Mean Corpuscular Hemoglobin 31.8 pg (26-32); Mean Corpuscular Hgb Concent. 32.5 g/dL (32-36); Mean Platelet Volume 11.3 fL (7.5-11.0); Monocyte (Absolute #) 0.66 x10^3/uL (0.0-1.3); Monocytes % 12.5 % (0.0-12.0); Neutrophil % 62.1 % (36.0-66.0); Platelet Count 217 x10^3/uL (150-450); Red Blood Count 4.31 x10^6/uL (4.1-5.6); Red Cell Distribution Width 13.8 % (11.5-14.0); SGOT/AST 58 U/L (17-59); White Blood Count 5.3 x10^3/uL (4.0-10.5)
[2023-02-20 04:30] LABS: Creatinine 1 1.22 mg/dL (0.66-1.25); EST GLOMERULAR FILTRATION RATE > 60.0 ML/MIN; SGPT/ALT 40 U/L (0-50)
[2023-02-20 05:16] LABS: Risk Ratio 4.4
--- NOTE | 2023-02-20 07:03 | XRAY ---
CLINICAL HISTORY:pain COMPARISON:CT and CR chest dated 01/26/2023 was reviewed at the time of reporting. TECHNIQUE:x-ray chest portable AP one view. FINDINGS: A radiographic examination of the chest demonstrates clear lungs. Obliteration of left costophrenic angle is seen as likely due to mild pleural effusion. A double lead cardiac pacemaker is seen in its normal position. Increased transverse cardiac diameter despite AP supine projection. Normal configuration of the mediastinum. The chaz are normal in size and position. Degenerative changes are seen in the visualized spine. IMPRESSION: 1. Obliteration of the left costophrenic angle is seen likely due to mild pleural effusion. 2. No evidence of consolidation or collapse was seen in either lung. 3. Redemonstration of cardiomegaly. A double lead cardiac pacemaker is seen in its normal position. Electronically Signed by: Janelle Lee MD. (02/20/2023 06:03:10 [employer])
[2023-02-20] MEDS ORDERED: ATARAX 25 MG PO PRN (07:04)
[2023-02-20] MEDS ORDERED: Phenergan 25 MG INJ*** 12.5 MG in Sodium Chloride 0.9% 100 ML IV PRN (08:35)
--- NOTE | 2023-02-20 08:36 | XRAY ---
Indication: Abdomen pain. Multiple contiguous axial images obtained through the abdomen and pelvis without contrast. Comparison: January 26, 2023 Lung bases are now clear. Heart borderline enlarged. Stable small hiatal hernia. Noncontrasted stomach and bowel loops appear nonobstructed with normal appendix. No free fluid/air. Stable minimal scattered colonic diverticulosis, pancreatic head cyst, left renal cyst, and enlarged prostate gland. Remaining liver, gallbladder, pancreas, spleen, adrenal glands, kidneys, ureters, and bladder are unremarkable for noncontrast exam. Again mild scattered aortoiliac calcifications without AAA. Osseous structures intact again with osteopenia and minimal/mild degenerative changes throughout the thoracolumbar spine. Stable small bilateral fatty inguinal hernias. Impression: 1. Again chronic findings including hiatal hernia, colonic diverticulosis, pancreatic cyst, left renal cyst, enlarged prostate gland, arteriosclerotic disease, chronic bony findings, and bilateral fatty inguinal hernias. 2. No new/acute intra-abdominal/pelvic abnormalities on this noncontrast exam.
[2023-02-20] MEDS: XARELTO 10 MG TABLET PO SCH (09:00)
[2023-02-20] MEDS: Cymbalta 30 MG Capsule PO SCH (09:00)
[2023-02-20] MEDS: Protonix 40MG Tablet PO SCH (09:00)
[2023-02-20] MEDS: FEOSOL 325 MG PO SCH (09:01)
[2023-02-20] MEDS: Neurontin PO SCH ×4 (09:01→21:08)
[2023-02-20] MEDS: ZOLOFT 50 MG TABLET PO SCH (09:01)
[2023-02-20] MEDS: ZOCOR 20MG PO SCH (09:01)
[2023-02-20] MEDS ORDERED: Toprol Xl 100 MG PO SCH (10:00)
[2023-02-20] MEDS ORDERED: NON-FORMULARY ITEM (Atorvastatin Calcium 20 MG Tab) PO SCH (10:00)
--- NOTE | 2023-02-20 14:01 | TM.IN ---
Tele-Medicine Incident Note - Incident Note Tel-Medicine Incident Note: 02/20/23 [id number] Post midnight admission seen/evaluated. On amiodarone infusion for atrial fibrillation with RVR. I have placed a call for Dr. Adams (awaiting call back). Telemedicine Encounter - Telemedicine Encounter Telemedicine Encounter: The entirety of this encounter was performed via Telemedicine"
[2023-02-20] MEDS: Zanaflex 4 MG PO PRN (14:12)
[2023-02-20] MEDS ORDERED: Sodium Chloride 0.9% 250 ML 250 ML IV SCH (18:15)
[2023-02-20] MEDS ORDERED: Sodium Chloride 0.9% 1000 ML 1,000 ML IV STA (18:52)
[2023-02-21] MEDS: Zanaflex 4 MG PO PRN (01:53)
[2023-02-21 04:43] LABS: Absolute Neutrophil Ct (ANC) 2.47 x10^3/uL (1.4-6.9); BASOPHIL % 0.5 % (0.0-0.4); Basophil (Absolute #) 0.02 x10^3/uL (0-0.4); Eosinophil % 3.8 % (0.00-5.0); Eosinophil (Absolute #) 0.16 x10^3/uL (0-0.5); Hematocrit 34.9 % (42-50); Hemoglobin 11.4 g/dL (12.5-18.0); IMMATURE GRAN # 0.01 x10^3u/L (0.00-0.03); IMMATURE GRAN % 0.2 % (0.00-0.4); Lymphocytes % 23.7 % (24.0-44.0); Mean Cell Volume 98.6 fL (78-100); Mean Corpuscular Hemoglobin 32.2 pg (26-32); Mean Corpuscular Hgb Concent. 32.7 g/dL (32-36); Mean Platelet Volume 10.1 fL (7.5-11.0); Monocyte (Absolute #) 0.56 x10^3/uL (0.0-1.3); Monocytes % 13.3 % (0.0-12.0); Neutrophil % 58.5 % (36.0-66.0); Platelet Count 184 x10^3/uL (150-450); Red Blood Count 3.54 x10^6/uL (4.1-5.6); Red Cell Distribution Width 13.9 % (11.5-14.0); White Blood Count 4.2 x10^3/uL (4.0-10.5)
[2023-02-21 04:48] LABS: ALBUMIN 3.1 g/dL (3.5-5.0); ALKALINE PHOSPHATASE 73 U/L (38-126); ANION GAP 9.5 MEQ/L (5-15); BLOOD UREA NITROGEN 22 mg/dL (9-20); CHLORIDE 107 mmol/L (98-107); Calcium 8.2 mg/dL (8.4-10.2); Carbon Dioxide 26 mmol/L (22-30); Creatinine 1 1.13 mg/dL (0.66-1.25); EST GLOMERULAR FILTRATION RATE > 60.0 ML/MIN; Glucose 94 mg/dL (74-106); Potassium 4.2 mmol/L (3.5-5.1); SGOT/AST 39 U/L (17-59); SGPT/ALT 35 U/L (0-50); SODIUM 138 mmol/L (137-145); Total Protein 6.5 g/dL (6.3-8.2)
[2023-02-21] MEDS: Neurontin PO SCH ×2 (09:12→12:32)
[2023-02-21] MEDS: XARELTO 10 MG TABLET PO SCH (09:12)
[2023-02-21] MEDS: Protonix 40MG Tablet PO SCH (09:12)
[2023-02-21] MEDS: Cymbalta 30 MG Capsule PO SCH (09:12)
[2023-02-21] MEDS: ZOLOFT 50 MG TABLET PO SCH (09:13)
[2023-02-21] MEDS: ZOCOR 20MG PO SCH (09:13)
[2023-02-21] MEDS: FEOSOL 325 MG PO SCH (09:13)
[2023-02-21] MEDS: NEXTERONE 360 MG/200 ML BAG 360 MG/200 ML PLAST..BAG IV SCH (09:28)
[2023-02-21] MEDS ORDERED: Mylicon 80MG PO PRN (10:50)
[2023-02-21] MEDS ORDERED: Cordarone 200 MG PO SCH (11:30)
--- NOTE | 2023-02-21 11:47 | PCM.DS ---
Discharge Summary Date of Admission: 02/19/23 20:36 Date of Discharge: 02/21/23 Admitting Physician: EDMUNDO MURPHY MD Primary Care Provider: DOMINIQUE MORATAYA Allergies Allergies codeine [Codeine] Allergy (Mild, Verified 01/26/23 16:27) Hives pt states hives are quick onset Hospital Summary - Hospital Course Hospital Course: Presented with atrial fibrillation with RVR. Placed on amiodarone infusion for 24 hours. Discussed plan of care with Dr. Mayes via telephone. Plan will be to place the patient on oral amiodarone (200 mg bid x 1 week, then 200 mg daily), with follow up next Friday with Dr. Mayes and plan for coordination of DCCV. The patient's BP has been lower, possibly due to the arrhythmia, but the patient is asymptomatic. Will decrease his metoprolol from 100 mg po bid to 100 mg po daily. The patient has received IV fluids for volume expansion. He has no symptoms suggestive of infection and workup/exam are unremarkable. Patient has significant debility and will be closely monitored at a rehab facility. The patient has been accepted and will be discharged. - Vitals & Intake/Output Vital Signs: Vital Signs Temperature 97.7 F 02/21/23 07:28 Pulse Rate 105 H 02/21/23 11:00 Respiratory Rate 18 02/21/23 11:00 Blood Pressure 97/82 02/21/23 11:00 O2 Sat by Pulse Oximetry 97 02/21/23 11:00 Intake & Output: Intake & Output 02/18/23 02/19/23 02/20/23 02/21/23 11:59 11:59 11:59 11:59 Intake Total 437 3689 Output Total 300 1425 Balance 137 2264 Weight 76.1 kg - Lab Result Diagrams: 02/21/23 04:22 02/21/23 04:22 Lab Results-Last 24 Hrs: Lab Results-Last 24 Hours 02/21/23 02/21/23 02/21/23 Range/Units 04:22 04:22 04:22 WBC 4.2 (4.0-10.5) x10^3/uL RBC 3.54 L (4.1-5.6) x10^6/uL Hgb 11.4 L (12.5-18.0) g/dL Hct 34.9 L (42-50) % MCV 98.6 (78-100) fL MCH 32.2 H (26-32) pg MCHC 32.7 (32-36) g/dL RDW 13.9 (11.5-14.0) % Plt Count 184 (150-450) x10^3/uL MPV 10.1 (7.5-11.0) fL Gran % 58.5 (36.0-66.0) % Immature Gran % (Auto) 0.2 (0.00-0.4) % Nucleat RBC Rel Count 0.0 (0.00-0.1) % Eos # (Auto) 0.16 (0-0.5) x10^3/uL Immature Gran # (Auto) 0.01 (0.00-0.03) x10^3u/L Absolute Lymphs (auto) 1.00 (1.0-4.6) x10^3/uL Absolute Monos (auto) 0.56 (0.0-1.3) x10^3/uL Absolute Nucleated RBC 0.00 (0.00-0.01) x10^3u/L Lymphocytes % 23.7 L (24.0-44.0) % Monocytes % 13.3 H (0.0-12.0) % Eosinophils % 3.8 (0.00-5.0) % Basophils % 0.5 (0.0-0.4) % Absolute Granulocytes 2.47 (1.4-6.9) x10^3/uL Basophils # 0.02 (0-0.4) x10^3/uL Sodium 138 (137-145) mmol/L Potassium 4.2 (3.5-5.1) mmol/L Chloride 107 (98-107) mmol/L Carbon Dioxide 26 (22-30) mmol/L Anion Gap 9.5 (5-15) MEQ/L BUN 22 H (9-20) mg/dL Creatinine 1.13 (0.66-1.25) mg/dL Estimated GFR > 60.0 ML/MIN Glucose 94 (74-106) mg/dL Calcium 8.2 L (8.4-10.2) mg/dL Magnesium 1.9 (1.6-2.3) mg/dL Total Bilirubin 0.30 (0.2-1.3) mg/dL AST 39 (17-59) U/L ALT 35 (0-50) U/L Alkaline Phosphatase 73 (38-126) U/L Serum Total Protein 6.5 (6.3-8.2) g/dL Albumin 3.1 L (3.5-5.0) g/dL - Radiology Exams Ordered Rad Exams-Entire Visit: Radiology Procedures Category Date Time Status ABDOMEN AND PELVIS W/0 CONTRAS [CT] Stat Exams 02/19/23 16:05 Completed CHEST 1 VIEW (PORTABLE) Stat Exams 02/19/23 16:02 Completed ECHO W/2D AND DOPPLER [US] Routine Exams 02/20/23 00:15 Taken KNEE (3 VIEWS) Stat Exams 02/19/23 15:51 Completed SHOULDER Stat Exams 02/19/23 15:50 Completed - Procedures and Test Procedures and Tests throughout Hospitalization: Therapy Orders & Screens 02/20/23 01:30 EKG ROUTINE Comment: 02/20/23 11:52 PT Eval & Treat (MD Order) ONCE Reason for Eval:: weakness Diagnosis: Atrial fibrillation with RVR 02/21/23 05:00 EKG ROUTINE Comment: Diagnosis: Atrial fibrillation with RVR 02/22/23 05:00 EKG ROUTINE Comment: Diagnosis: Atrial fibrillation with RVR Discharge Exam General Appearance: no apparent distress, alert Neurologic Exam: oriented x 3, cooperative, 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 Code(s): I48.91 - UNSPECIFIED ATRIAL FIBRILLATION Telemedicine Encounter - Telemedicine Encounter Telemedicine Encounter: The entirety of this encounter was performed via Telemedicine" - Discharge Disposition: Home, Self-Care Condition: Stable Prescriptions: New RX: Amiodarone HCl 200 mg [Cordarone 200 MG] 200 mg PO BID 30 Days #37 tablet RX: Metoprolol Succinate 100 mg [Toprol Xl 100 MG] 100 mg PO DAILY 30 Days #30 tablet RX: Tizanidine HCl 4 mg [Zanaflex 4 MG] 4 mg PO TID PRN PRN #30 tablet PRN Reason: Muscle Spasms Continue RX: Rivaroxaban [Xarelto] 20 mg PO DAILY RX: Sertraline HCl 50 mg [Zoloft 50 mg Tablet] 50 mg PO DAILY RX: PANTOPRAZOLE 40 mg Tablet [Protonix 40MG Tablet] 40 mg PO DAILY RX: Hydroxyzine HCl 25 mg [Atarax 25 mg] 25 mg PO TID PRN PRN Reason: Anxiety RX: Gabapentin 400 mg PO QID RX: Atorvastatin Calcium [Lipitor 20MG Tablet] 20 mg PO DAILY RX: Duloxetine HCl 30 mg [Cymbalta 30 MG Capsule] 30 mg PO DAILY RX: Minocycline HCl 1 cap PO BID RX: Ferrous Sulfate 325 mg [Feosol 325 mg] 1 tab PO DAILY RX: Furosemide [Lasix] 1 tab PO DAILY PRN PRN Reason: Shortness Of Breath Discontinued RX: Metoprolol Succinate 100 mg [Toprol Xl 100 MG] 100 mg PO BID Additional Instructions: LONG TERM ORDERS: REGULAR DIET AMBULATE WITH ASSISTANCE SEE ATTACHED MED LIST Follow up with: DEBO MAYES [CONSULTING PHYSICIAN] - 02/26/23 9:45 am (At [facility] ) DOMINIQUE MORATAYA NP [Primary Care Provider] - 02/26/23 1:00 pm
[2023-02-21] MEDS: CORTISONE 1% CREAM TP PRN (12:32)
[2023-02-21 12:40] VITALS: BP 96/80; PULSE 108; O2SAT 96
[2023-02-21] MEDS ORDERED: Toprol Xl 50 MG PO SCH (22:00)
== END 2023-02-21 15:17 ==
LOC: ED 15:28 → ICU 20:36
PROVIDERS: ADMIT Internal Medicine Critical Care Medicine; ATTEND Family Medicine
DX: I48.20 Chronic atrial fibrillation, unspecified (principal); E78.5 Hyperlipidemia, unspecified; K21.9 Gastro-esophageal reflux disease without esophagitis; I11.0 Hypertensive heart disease with heart failure; I50.9 Heart failure, unspecified; J44.9 Chronic obstructive pulmonary disease, unspecified; M25.512 Pain in left shoulder; M25.562 Pain in left knee; I25.10 Atherosclerotic heart disease of native coronary artery without angina pectoris; Z79.01 Long term (current) use of anticoagulants; Z20.828 Contact with and (suspected) exposure to other viral communicable diseases; Z79.899 Other long term (current) drug therapy
CPT/HCPCS: 36415; 71045; 73030; 73562; 74176; 80053; 80061; 80307; 81001; 82150; 82805; 83605; 83690; 83721; 83735; 83880; 84484; 85025; 85379; 85610; 85652; 85730; 93005; 93268; 93306; 94762; 96365; 97161; 97530; 99285; G0378; Q3014; J2405; J2550; A9270-GY

== ENCOUNTER 2023-04-26 11:15 | Inpatient (IN) | payer MEDICARE ==
[2023-04-26] MEDS ORDERED: Cardizem IV 50 MG/10 ML IV ONE ×4 (11:35→13:13)
[2023-04-26] MEDS ORDERED: Lasix 40 MG/4 ML IV ONE (11:35)
[2023-04-26] MEDS ORDERED: Sodium Chloride 0.9% 1000 ML 1,000 ML IV SCH (11:45)
[2023-04-26] MEDS ORDERED: Lasix 40 MG/4 ML ONE (11:53)
[2023-04-26 12:00] LABS: Absolute Neutrophil Ct (ANC) 8.38 x10^3/uL (1.4-6.9); BASOPHIL % 0.3 % (0.0-0.4); Basophil (Absolute #) 0.03 x10^3/uL (0-0.4); Eosinophil % 0.3 % (0.00-5.0); Eosinophil (Absolute #) 0.03 x10^3/uL (0-0.5); Hematocrit 37.2 % (42-50); Hemoglobin 12.1 g/dL (12.5-18.0); IMMATURE GRAN # 0.03 x10^3u/L (0.00-0.03); IMMATURE GRAN % 0.3 % (0.00-0.4); Lymphocyte (Absolute #) 1.13 x10^3/uL (1.0-4.6); Lymphocytes % 10.6 % (24.0-44.0); Mean Cell Volume 100.8 fL (78-100); Mean Corpuscular Hemoglobin 32.8 pg (26-32); Mean Corpuscular Hgb Concent. 32.5 g/dL (32-36); Mean Platelet Volume 12.7 fL (7.5-11.0); Monocytes % 10.3 % (0.0-12.0); Neutrophil % 78.2 % (36.0-66.0); Platelet Count 132 x10^3/uL (150-450); Red Blood Count 3.69 x10^6/uL (4.1-5.6); Red Cell Distribution Width 14.7 % (11.5-14.0); White Blood Count 10.7 x10^3/uL (4.0-10.5)
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
[2023-04-26 12:24] LABS: ALKALINE PHOSPHATASE 66 U/L (38-126); ANION GAP 15.2 MEQ/L (5-15); BLOOD UREA NITROGEN 25 mg/dL (9-20); CHLORIDE 103 mmol/L (98-107); Calcium 8.5 mg/dL (8.4-10.2); Carbon Dioxide 26 mmol/L (22-30); Creatinine 1 0.95 mg/dL (0.66-1.25); EST GLOMERULAR FILTRATION RATE > 60.0 ML/MIN; Glucose 126 mg/dL (74-106); MAGNESIUM 1.5 mg/dL (1.6-2.3); NT PRO BNPII 19300 pg/mL (<300); Potassium 4.3 mmol/L (3.5-5.1); SGOT/AST 56 U/L (17-59); SGPT/ALT 37 U/L (0-50); SODIUM 140 mmol/L (137-145); Total Protein 7.4 g/dL (6.3-8.2)
[2023-04-26 12:41] LABS: INFLUENZA A NEGATIVE (NEGATIVE); INFLUENZA B NEGATIVE (NEGATIVE); RESPIRATORY SYNCTIAL VIRUS NEGATIVE (NEGATIVE); SARS-CoV-2 Xpert Express NEGATIVE (NEGATIVE)
[2023-04-26] MEDS ORDERED: CARDIZEM DRIP 100 MG/100 ML D5W 100 ML IV ONE (13:13)
[2023-04-26] MEDS ORDERED: Magnesium 1 Gm / 100 Ml D5W*** 200 ML IV ONE (13:13)
[2023-04-26] MEDS: Magnesium 1 Gm / 100 Ml D5W*** 100 ML IV SCH ×2 (13:16→13:27)
[2023-04-26] MEDS ORDERED: CARDIZEM DRIP 100 MG/100 ML D5W 100 ML IV PRN ×2 (14:19→14:31)
[2023-04-26] MEDS ORDERED: PROVENTIL 2.5 MG/3 ML NEB IH PRN (14:35)
[2023-04-26] MEDS ORDERED: Zanaflex 4 MG PO PRN (14:35)
[2023-04-26] MEDS ORDERED: LASIX 20 MG PO PRN (14:35)
[2023-04-26 14:45] LABS: Hematocrit 37.9 % (42-50); Hemoglobin 12.2 g/dL (12.5-18.0); Mean Cell Volume 101.6 fL (78-100); Mean Corpuscular Hemoglobin 32.7 pg (26-32); Mean Corpuscular Hgb Concent. 32.2 g/dL (32-36); Mean Platelet Volume 11.1 fL (7.5-11.0); Platelet Count 147 x10^3/uL (150-450); Red Blood Count 3.73 x10^6/uL (4.1-5.6); Red Cell Distribution Width 14.6 % (11.5-14.0); White Blood Count 9.3 x10^3/uL (4.0-10.5)
[2023-04-26] MEDS ORDERED: Nitrostat 0.4 MG (ED) SL SCH (14:45)
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
[2023-04-26 15:12] LABS: ANION GAP 14.5 MEQ/L (5-15); BLOOD UREA NITROGEN 24 mg/dL (9-20); CHLORIDE 103 mmol/L (98-107); Calcium 8.5 mg/dL (8.4-10.2); Carbon Dioxide 27 mmol/L (22-30); Creatinine 1 0.91 mg/dL (0.66-1.25); EST GLOMERULAR FILTRATION RATE > 60.0 ML/MIN; Glucose 119 mg/dL (74-106); NT PRO BNPII 17700 pg/mL (<300); Potassium 3.1 mmol/L (3.5-5.1); SODIUM 141 mmol/L (137-145)
[2023-04-26 15:16] LABS: Amphetamine,Urine NEGATIVE (NEGATIVE); Barbiturate,Urine NEGATIVE (NEGATIVE); Benzodiazepine,Urine NEGATIVE (NEGATIVE); Cocaine,Urine NEGATIVE (NEGATIVE); Methadone,Urine NEGATIVE (NEGATIVE); Opiate,Urine NEGATIVE (NEGATIVE); PCP,Urine NEGATIVE (NEGATIVE); THC,Urine NEGATIVE (NEGATIVE)
[2023-04-26 15:36] LABS: INR 2.07 (0.8-3.0); PROTIME 21.4 SECONDS (9.4-12.5)
[2023-04-26 15:49] LABS: D-DIMER QUANTITATIVE 0.8 mg/L (0.0-0.50)
[2023-04-26] MEDS ORDERED: Klor Con PO ONE (16:03)
[2023-04-26] MEDS: JANTOVEN PO SCH (16:22)
[2023-04-26] MEDS: Neurontin PO SCH ×2 (16:23→21:26)
[2023-04-26] MEDS: Lasix 40 MG PO SCH (16:23)
[2023-04-26] MEDS ORDERED: Sodium Chloride 0.9% 250 ML 250 ML IV ONE (19:16)
[2023-04-26] MEDS ORDERED: Sodium Chloride 0.9% 250 ML 250 ML IV SCH ×2 (19:30→20:00)
[2023-04-26] MEDS ORDERED: AlbuRx 25% 50ML VIAL IV ONE (19:44)
--- NOTE | 2023-04-26 20:31 | XRAY ---
Indication: Short of breath. Comparison: February 19, 2023 PA/lateral chest remains hyperinflated and clear. Heart borderline enlarged again with left AICD. Bony thorax intact again with osteopenia and mild degenerative changes. Impression: Continued nonacute chest with chronic features.
[2023-04-26] MEDS: Toprol Xl 50 MG PO SCH (20:46)
[2023-04-26 20:59] LABS: ANION GAP 10.2 MEQ/L (5-15); BLOOD UREA NITROGEN 27 mg/dL (9-20); CHLORIDE 105 mmol/L (98-107); Calcium 7.8 mg/dL (8.4-10.2); Carbon Dioxide 30 mmol/L (22-30); Creatinine 1 1.09 mg/dL (0.66-1.25); EST GLOMERULAR FILTRATION RATE > 60.0 ML/MIN; Glucose 86 mg/dL (74-106); Potassium 3.2 mmol/L (3.5-5.1); SODIUM 142 mmol/L (137-145)
[2023-04-26] MEDS: ZOCOR 20MG PO SCH (21:26)
[2023-04-26] MEDS: MELATONIN PO SCH (21:26)
[2023-04-26] MEDS ORDERED: NON-FORMULARY ITEM (Melatonin/Pyridoxine [Melatonin 5 Mg Tablet] 1 EACH Tablet) PO SCH (22:00)
[2023-04-27] MEDS ORDERED: Zofran 4 MG/2 ML VIAL IV PRN (03:37)
[2023-04-27 06:39] LABS: Hematocrit 31.8 % (42-50); Hemoglobin 10.3 g/dL (12.5-18.0); Mean Cell Volume 99.7 fL (78-100); Mean Corpuscular Hemoglobin 32.3 pg (26-32); Mean Corpuscular Hgb Concent. 32.4 g/dL (32-36); Mean Platelet Volume 12.6 fL (7.5-11.0); Platelet Count 100 x10^3/uL (150-450); Red Blood Count 3.19 x10^6/uL (4.1-5.6); Red Cell Distribution Width 14.8 % (11.5-14.0)
[2023-04-27 06:51] LABS: ALBUMIN 3.3 g/dL (3.5-5.0); ALKALINE PHOSPHATASE 60 U/L (38-126); ANION GAP 9.9 MEQ/L (5-15); BLOOD UREA NITROGEN 29 mg/dL (9-20); CHLORIDE 105 mmol/L (98-107); Calcium 7.9 mg/dL (8.4-10.2); Carbon Dioxide 27 mmol/L (22-30); Creatinine 1 0.91 mg/dL (0.66-1.25); EST GLOMERULAR FILTRATION RATE > 60.0 ML/MIN; Glucose 89 mg/dL (74-106); Potassium 3.1 mmol/L (3.5-5.1); SGOT/AST 38 U/L (17-59); SGPT/ALT 32 U/L (0-50); SODIUM 140 mmol/L (137-145); Total Protein 6.4 g/dL (6.3-8.2)
[2023-04-27] MEDS: FEOSOL 325 MG PO SCH (07:25)
[2023-04-27] MEDS: ECOTRIN 81 MG PO SCH (07:25)
[2023-04-27] MEDS: Protonix 40MG Tablet PO SCH (07:25)
[2023-04-27] MEDS: Neurontin PO SCH ×4 (07:25→21:21)
[2023-04-27] MEDS: ZOLOFT 50 MG TABLET PO SCH (07:25)
[2023-04-27] MEDS: Toprol Xl 50 MG PO SCH ×2 (07:25→21:21)
--- NOTE | 2023-04-27 08:08 | PCM.NOTE ---
Date and Time: 04/27/23806 Subjective Assessment: 1) MILD TO MODERATE ASYMMETRIC LEFT VENTRICULAR HYPERTROPHY WITHOUT EVIDENCE OF ANY SIGNIFICANT LEFT VENTRICULAR OUTFLOW TRACT OBSTRUCTION. 2) APICAL HYPOKINESIA WITH OVERALL MILD TO MODERATE LEFT VENTRICULAR SYSTOLIC DYSFUNCTION. 3) PACEMAKER ARTIFACT IN RIGHT ATRIUM AND RIGHT VENTRICLE. 4) SMALL PERICARDIAL EFFUSION. 5) MILD TO MODERATE MITRAL REGURGITATION. 6) MILD TRICUSPID REGURGITATION. 7) TRACE AORTIC INSUFFICIENCY. OBJECTIVE DATA Vital Signs: Vital Signs - 24 hr Temp Pulse Resp BP BP Pulse Ox 04/27/23 07:20 106 H 04/27/23 07:00 106 H 18 142/86 97 04/27/23 06:00 111 H 18 129/95 92 L 04/27/23 05:00 111 H 23 92 L 04/27/23 04:00 98.1 F 104 H 21 116/84 92 L 04/27/23 03:00 103 H 20 93 L 04/27/23 02:00 98 H 24 87/70 92 L 04/27/23 00:01 101 H 04/27/23 00:00 98.1 F 101 H 24 100/74 92 L 04/26/23 22:00 97 H 21 92/64 94 L 04/26/23 21:33 100 H 24 103/73 92 L 04/26/23 21:30 93 L 04/26/23 21:00 103 H 15 98/68 93 L 04/26/23 20:39 92 H 20 80/56 91 L 04/26/23 20:25 123 H 26 H 92 L 04/26/23 20:00 97 H 91 L 04/26/23 18:43 97 H 80/53 04/26/23 18:12 98 H 71/48 04/26/23 17:56 109 H 04/26/23 17:00 107 H 18 118/86 97 04/26/23 16:00 115 H 18 130/98 97 04/26/23 15:16 124 H 132/105 04/26/23 15:15 124 H 18 132/102 96 04/26/23 15:00 97.7 F 116 H 20 136/97 95 04/26/23 14:36 97.7 F 114 H 24 136/97 94 L 04/26/23 13:45 114 H 24 125/85 94 L 04/26/23 13:30 117 H 29 H 132/90 92 L 04/26/23 13:19 109 H 29 H 124/95 94 L 04/26/23 13:15 122 H 23 114/98 96 04/26/23 13:00 122 H 16 133/85 95 04/26/23 12:45 125 H 24 149/98 94 L 04/26/23 12:30 122 H 21 142/100 94 L 04/26/23 12:15 123 H 24 144/97 93 L 04/26/23 12:07 124 H 18 136/97 98 04/26/23 12:06 116 H 25 H 136/97 93 L 04/26/23 12:03 100 04/26/23 11:17 97.7 F 89 30 H 146/121 100 Pain Assessment - Last Documented Pain Intensity 0 Intake and Output: Intake & Output 04/24/23 04/25/23 04/26/23 04/27/23 11:59 11:59 11:59 11:59 Intake Total 430 Output Total 3050 Balance -2620 Weight 80.6 kg 80.6 kg Lab Results: Lab Results-Last 24 Hours 04/26/23 04/26/23 04/26/23 Range/Units 11:30 11:30 11:30 WBC 10.7 H (4.0-10.5) x10^3/uL RBC 3.69 L (4.1-5.6) x10^6/uL Hgb 12.1 L (12.5-18.0) g/dL Hct 37.2 L (42-50) % MCV 100.8 H (78-100) fL MCH 32.8 H (26-32) pg MCHC 32.5 (32-36) g/dL RDW 14.7 H (11.5-14.0) % Plt Count 132 L (150-450) x10^3/uL MPV 12.7 H (7.5-11.0) fL Gran % 78.2 H (36.0-66.0) % Immature Gran % (Auto) 0.3 (0.00-0.4) % Nucleat RBC Rel Count 0.0 (0.00-0.1) % Eos # (Auto) 0.03 (0-0.5) x10^3/uL Immature Gran # (Auto) 0.03 (0.00-0.03) x10^3u/L Absolute Lymphs (auto) 1.13 (1.0-4.6) x10^3/uL Absolute Monos (auto) 1.10 (0.0-1.3) x10^3/uL Absolute Nucleated RBC 0.00 (0.00-0.01) x10^3u/L Lymphocytes % 10.6 L (24.0-44.0) % Monocytes % 10.3 (0.0-12.0) % Eosinophils % 0.3 (0.00-5.0) % Basophils % 0.3 (0.0-0.4) % Absolute Granulocytes 8.38 H (1.4-6.9) x10^3/uL Basophils # 0.03 (0-0.4) x10^3/uL PT (9.4-12.5) SECONDS INR (0.8-3.0) D-Dimer (0.0-0.50) mg/L Sodium 140 (137-145) mmol/L Potassium 4.3 (3.5-5.1) mmol/L Chloride 103 (98-107) mmol/L Carbon Dioxide 26 (22-30) mmol/L Anion Gap 15.2 H (5-15) MEQ/L BUN 25 H (9-20) mg/dL Creatinine 0.95 (0.66-1.25) mg/dL Estimated GFR > 60.0 ML/MIN Glucose 126 H (74-106) mg/dL Calcium 8.5 (8.4-10.2) mg/dL Magnesium 1.5 L (1.6-2.3) mg/dL Total Bilirubin 2.60 H (0.2-1.3) mg/dL AST 56 (17-59) U/L ALT 37 (0-50) U/L Alkaline Phosphatase 66 (38-126) U/L Troponin I 0.020 (0.000-0.034) ng/mL NT-Pro-B Natriuret Pep 21862 (<300) pg/mL Serum Total Protein 7.4 (6.3-8.2) g/dL Albumin 4.0 (3.5-5.0) g/dL Urine Opiates Level (NEGATIVE) Ur Methadone (NEGATIVE) Urine Barbiturates (NEGATIVE) Ur Phencyclidine (PCP) (NEGATIVE) Urine Amphetamine (NEGATIVE) U Benzodiazepine Level (NEGATIVE) Urine Cocaine (NEGATIVE) Urine Marijuana (THC) (NEGATIVE) Influenza Type A Ag (NEGATIVE) Influenza Type B Ag (NEGATIVE) RSV (PCR) (NEGATIVE) SARS-CoV-2 (PCR) (NEGATIVE) 04/26/23 04/26/23 04/26/23 Range/Units 11:30 11:53 14:42 WBC 9.3 (4.0-10.5) x10^3/uL RBC 3.73 L (4.1-5.6) x10^6/uL Hgb 12.2 L (12.5-18.0) g/dL Hct 37.9 L (42-50) % MCV 101.6 H (78-100) fL MCH 32.7 H (26-32) pg MCHC 32.2 (32-36) g/dL RDW 14.6 H (11.5-14.0) % Plt Count 147 L (150-450) x10^3/uL MPV 11.1 H (7.5-11.0) fL Gran % (36.0-66.0) % Immature Gran % (Auto) (0.00-0.4) % Nucleat RBC Rel Count (0.00-0.1) % Eos # (Auto) (0-0.5) x10^3/uL Immature Gran # (Auto) (0.00-0.03) x10^3u/L Absolute Lymphs (auto) (1.0-4.6) x10^3/uL Absolute Monos (auto) (0.0-1.3) x10^3/uL Absolute Nucleated RBC (0.00-0.01) x10^3u/L Lymphocytes % (24.0-44.0) % Monocytes % (0.0-12.0) % Eosinophils % (0.00-5.0) % Basophils % (0.0-0.4) % Absolute Granulocytes (1.4-6.9) x10^3/uL Basophils # (0-0.4) x10^3/uL PT 21.4 H (9.4-12.5) SECONDS INR 2.07 (0.8-3.0) D-Dimer 0.80 H* (0.0-0.50) mg/L Sodium (137-145) mmol/L Potassium (3.5-5.1) mmol/L Chloride (98-107) mmol/L Carbon Dioxide (22-30) mmol/L Anion Gap (5-15) MEQ/L BUN (9-20) mg/dL Creatinine (0.66-1.25) mg/dL Estimated GFR ML/MIN Glucose (74-106) mg/dL Calcium (8.4-10.2) mg/dL Magnesium (1.6-2.3) mg/dL Total Bilirubin (0.2-1.3) mg/dL AST (17-59) U/L ALT (0-50) U/L Alkaline Phosphatase (38-126) U/L Troponin I (0.000-0.034) ng/mL NT-Pro-B Natriuret Pep (<300) pg/mL Serum Total Protein (6.3-8.2) g/dL Albumin (3.5-5.0) g/dL Urine Opiates Level (NEGATIVE) Ur Methadone (NEGATIVE) Urine Barbiturates (NEGATIVE) Ur Phencyclidine (PCP) (NEGATIVE) Urine Amphetamine (NEGATIVE) U Benzodiazepine Level (NEGATIVE) Urine Cocaine (NEGATIVE) Urine Marijuana (THC) (NEGATIVE) Influenza Type A Ag NEGATIVE (NEGATIVE) Influenza Type B Ag NEGATIVE (NEGATIVE) RSV (PCR) NEGATIVE (NEGATIVE) SARS-CoV-2 (PCR) NEGATIVE (NEGATIVE) 04/26/23 04/26/23 04/26/23 Range/Units 14:42 14:45 14:55 WBC (4.0-10.5) x10^3/uL RBC (4.1-5.6) x10^6/uL Hgb (12.5-18.0) g/dL Hct (42-50) % MCV (78-100) fL MCH (26-32) pg MCHC (32-36) g/dL RDW (11.5-14.0) % Plt Count (150-450) x10^3/uL MPV (7.5-11.0) fL Gran % (36.0-66.0) % Immature Gran % (Auto) (0.00-0.4) % Nucleat RBC Rel Count (0.00-0.1) % Eos # (Auto) (0-0.5) x10^3/uL Immature Gran # (Auto) (0.00-0.03) x10^3u/L Absolute Lymphs (auto) (1.0-4.6) x10^3/uL Absolute Monos (auto) (0.0-1.3) x10^3/uL Absolute Nucleated RBC (0.00-0.01) x10^3u/L Lymphocytes % (24.0-44.0) % Monocytes % (0.0-12.0) % Eosinophils % (0.00-5.0) % Basophils % (0.0-0.4) % Absolute Granulocytes (1.4-6.9) x10^3/uL Basophils # (0-0.4) x10^3/uL PT (9.4-12.5) SECONDS INR (0.8-3.0) D-Dimer (0.0-0.50) mg/L Sodium 141 (137-145) mmol/L Potassium 3.1 L D (3.5-5.1) mmol/L Chloride 103 (98-107) mmol/L Carbon Dioxide 27 (22-30) mmol/L Anion Gap 14.5 (5-15) MEQ/L BUN 24 H (9-20) mg/dL Creatinine 0.91 (0.66-1.25) mg/dL Estimated GFR > 60.0 ML/MIN Glucose 119 H (74-106) mg/dL Calcium 8.5 (8.4-10.2) mg/dL Magnesium (1.6-2.3) mg/dL Total Bilirubin (0.2-1.3) mg/dL AST (17-59) U/L ALT (0-50) U/L Alkaline Phosphatase (38-126) U/L Troponin I 0.021 (0.000-0.034) ng/mL NT-Pro-B Natriuret Pep 23747 (<300) pg/mL Serum Total Protein (6.3-8.2) g/dL Albumin (3.5-5.0) g/dL Urine Opiates Level NEGATIVE (NEGATIVE) Ur Methadone NEGATIVE (NEGATIVE) Urine Barbiturates NEGATIVE (NEGATIVE) Ur Phencyclidine (PCP) NEGATIVE (NEGATIVE) Urine Amphetamine NEGATIVE (NEGATIVE) U Benzodiazepine Level NEGATIVE (NEGATIVE) Urine Cocaine NEGATIVE (NEGATIVE) Urine Marijuana (THC) NEGATIVE (NEGATIVE) Influenza Type A Ag (NEGATIVE) Influenza Type B Ag (NEGATIVE) RSV (PCR) (NEGATIVE) SARS-CoV-2 (PCR) (NEGATIVE) 04/26/23 04/26/23 04/26/23 Range/Units 19:00 20:43 20:43 WBC (4.0-10.5) x10^3/uL RBC (4.1-5.6) x10^6/uL Hgb (12.5-18.0) g/dL Hct (42-50) % MCV (78-100) fL MCH (26-32) pg MCHC (32-36) g/dL RDW (11.5-14.0) % Plt Count (150-450) x10^3/uL MPV (7.5-11.0) fL Gran % (36.0-66.0) % Immature Gran % (Auto) (0.00-0.4) % Nucleat RBC Rel Count (0.00-0.1) % Eos # (Auto) (0-0.5) x10^3/uL Immature Gran # (Auto) (0.00-0.03) x10^3u/L Absolute Lymphs (auto) (1.0-4.6) x10^3/uL Absolute Monos (auto) (0.0-1.3) x10^3/uL Absolute Nucleated RBC (0.00-0.01) x10^3u/L Lymphocytes % (24.0-44.0) % Monocytes % (0.0-12.0) % Eosinophils % (0.00-5.0) % Basophils % (0.0-0.4) % Absolute Granulocytes (1.4-6.9) x10^3/uL Basophils # (0-0.4) x10^3/uL PT (9.4-12.5) SECONDS INR (0.8-3.0) D-Dimer (0.0-0.50) mg/L Sodium 142 (137-145) mmol/L Potassium 3.2 L (3.5-5.1) mmol/L Chloride 105 (98-107) mmol/L Carbon Dioxide 30 (22-30) mmol/L Anion Gap 10.2 (5-15) MEQ/L BUN 27 H (9-20) mg/dL Creatinine 1.09 (0.66-1.25) mg/dL Estimated GFR > 60.0 ML/MIN Glucose 86 (74-106) mg/dL Calcium 7.8 L (8.4-10.2) mg/dL Magnesium (1.6-2.3) mg/dL Total Bilirubin (0.2-1.3) mg/dL AST (17-59) U/L ALT (0-50) U/L Alkaline Phosphatase (38-126) U/L Troponin I 0.025 0.022 (0.000-0.034) ng/mL NT-Pro-B Natriuret Pep (<300) pg/mL Serum Total Protein (6.3-8.2) g/dL Albumin (3.5-5.0) g/dL Urine Opiates Level (NEGATIVE) Ur Methadone (NEGATIVE) Urine Barbiturates (NEGATIVE) Ur Phencyclidine (PCP) (NEGATIVE) Urine Amphetamine (NEGATIVE) U Benzodiazepine Level (NEGATIVE) Urine Cocaine (NEGATIVE) Urine Marijuana (THC) (NEGATIVE) Influenza Type A Ag (NEGATIVE) Influenza Type B Ag (NEGATIVE) RSV (PCR) (NEGATIVE) SARS-CoV-2 (PCR) (NEGATIVE) 04/27/23 04/27/23 04/27/23 Range/Units 05:20 05:20 05:20 WBC 5.0 (4.0-10.5) x10^3/uL RBC 3.19 L (4.1-5.6) x10^6/uL Hgb 10.3 L (12.5-18.0) g/dL Hct 31.8 L (42-50) % MCV 99.7 (78-100) fL MCH 32.3 H (26-32) pg MCHC 32.4 (32-36) g/dL RDW 14.8 H (11.5-14.0) % Plt Count 100 L (150-450) x10^3/uL MPV 12.6 H (7.5-11.0) fL Gran % (36.0-66.0) % Immature Gran % (Auto) (0.00-0.4) % Nucleat RBC Rel Count (0.00-0.1) % Eos # (Auto) (0-0.5) x10^3/uL Immature Gran # (Auto) (0.00-0.03) x10^3u/L Absolute Lymphs (auto) (1.0-4.6) x10^3/uL Absolute Monos (auto) (0.0-1.3) x10^3/uL Absolute Nucleated RBC (0.00-0.01) x10^3u/L Lymphocytes % (24.0-44.0) % Monocytes % (0.0-12.0) % Eosinophils % (0.00-5.0) % Basophils % (0.0-0.4) % Absolute Granulocytes (1.4-6.9) x10^3/uL Basophils # (0-0.4) x10^3/uL PT (9.4-12.5) SECONDS INR (0.8-3.0) D-Dimer (0.0-0.50) mg/L Sodium 140 (137-145) mmol/L Potassium 3.1 L (3.5-5.1) mmol/L Chloride 105 (98-107) mmol/L Carbon Dioxide 27 (22-30) mmol/L Anion Gap 9.9 (5-15) MEQ/L BUN 29 H (9-20) mg/dL Creatinine 0.91 (0.66-1.25) mg/dL Estimated GFR > 60.0 ML/MIN Glucose 89 (74-106) mg/dL Calcium 7.9 L (8.4-10.2) mg/dL Magnesium 2.0 (1.6-2.3) mg/dL Total Bilirubin 2.10 H (0.2-1.3) mg/dL AST 38 (17-59) U/L ALT 32 (0-50) U/L Alkaline Phosphatase 60 (38-126) U/L Troponin I (0.000-0.034) ng/mL NT-Pro-B Natriuret Pep (<300) pg/mL Serum Total Protein 6.4 (6.3-8.2) g/dL Albumin 3.3 L (3.5-5.0) g/dL Urine Opiates Level (NEGATIVE) Ur Methadone (NEGATIVE) Urine Barbiturates (NEGATIVE) Ur Phencyclidine (PCP) (NEGATIVE) Urine Amphetamine (NEGATIVE) U Benzodiazepine Level (NEGATIVE) Urine Cocaine (NEGATIVE) Urine Marijuana (THC) (NEGATIVE) Influenza Type A Ag (NEGATIVE) Influenza Type B Ag (NEGATIVE) RSV (PCR) (NEGATIVE) SARS-CoV-2 (PCR) (NEGATIVE) Radiology Exams: Radiology Procedures Category Date Time Status CHEST 2 VIEWS (PA AND LAT) Routine Exams 04/28/23 06:00 Ordered CHEST 2 VIEWS (PA AND LAT) Stat Exams 04/26/23 11:36 Completed Assessment/Plan (1) Atrial fibrillation with RVR Current Visit: No Status: Acute Code(s): I48.91 - UNSPECIFIED ATRIAL FIBRILLATION (2) CHF (congestive heart failure) Current Visit: No Status: Acute Code(s): I50.9 - HEART FAILURE, UNSPECIFIED (3) Shortness of breath Current Visit: No Status: Acute Code(s): R06.02 - SHORTNESS OF BREATH (4) HTN (hypertension) Current Visit: No Status: Chronic Qualifiers: Hypertension type: essential hypertension Qualified Code(s): I10 - Essential (primary) hypertension Code(s): I10 - ESSENTIAL (PRIMARY) HYPERTENSION (5) Chronic anticoagulation Current Visit: Yes Status: Acute Code(s): Z79.01 - [employer]IC [employer]PERVIS[employer] (CURRENT) USE OF ANTICOAGULANTS
[2023-04-27] MEDS: Klor Con PO SCH ×4 (08:11→14:01)
[2023-04-27] MEDS ORDERED: Coumadin 2 MG PO SCH (10:00)
[2023-04-27] MEDS ORDERED: NON-FORMULARY ITEM (Atorvastatin Calcium 20 MG Tab) PO SCH (10:00)
[2023-04-27] MEDS ORDERED: NON-FORMULARY ITEM (Metolazone [Metolazone] 5 MG Tablet) PO SCH (10:00)
[2023-04-27] MEDS: Zaroxolyn 2.5 MG PO SCH (10:16)
[2023-04-27] MEDS: Lasix 40 MG PO SCH ×2 (10:16→16:02)
[2023-04-27] MEDS: Dulcolax 10 MG SUPP RC SCH (10:16)
[2023-04-27] MEDS: Cordarone 200 MG PO SCH ×2 (10:34→21:21)
[2023-04-27] MEDS: Lanoxin 0.5 MG/2 ML INJECTION IV SCH ×2 (10:34→16:02)
--- NOTE | 2023-04-27 12:51 | PCM.NOTE ---
Date and Time: 04/27/23 1243 Subjective Assessment: 04/26/23 is 67-year-old male with significant past medical history of chronic atrial fibrillation, preserved ejection fraction with heart failure, hypertension, cardiomegly, hyperlipidemia, hepatitis, and COPD. He has had multiple failed cardioversions as well as multiple pacemaker placements. He has had multiple ER visits for heart and lung problems per ER physician. He was just released from a rehab facilty after being there 2 months. He admits to smoking marijuana recently. He has a hx of drug abuse. He came to the emergency room with worsening shortness of breath for last 2 to 3 days and started having palpitations. Patient also has a recent cardioversion which failed. Again he is a poor historian and thinks this was recently but was last in the hospital at [facility] months ago. Patient denies any chest pain, nausea vomiting fever chills. He was started on a cardizem gtt in the ER. 04/27/23 Pt resting in bed. He explains he feels much better today and SOB has improved. Cardizem gtt stopped last night as pt's BP dropped. HR is starting to go up again into 150's, continued A-fib RVR. Digoxin 0.25mg IV Q6 X2 ordered. Amiodarone 400mg BID started. Will continue Lasix. Pt placed on electrolyte protocol as potassium remains low this morning. Recent Echo found and pt's EJ is 45%. He has no edema and lungs are clear.Tele- cardiology to see pt tomorrow. Pt denies CP, SOB, abd pain, N/V/D. - Review of Systems Constitutional: No Fever, No Chills Eyes: No Symptoms Ears, Nose, & Throat: No Symptoms Respiratory: No Cough, No Short Of Breath Cardiac: No Chest Pain, No Edema, No Syncope Abdominal/Gastrointestinal: No Abdominal Pain, No Nausea, No Vomiting, No Diarrhea Genitourinary Symptoms: No Dysuria Musculoskeletal: No Back Pain, No Neck Pain Skin: No Rash Neurological: No Dizziness, No Focal Weakness, No Sensory Changes Psychological: No Symptoms Endocrine: No Symptoms Hematologic/Lymphatic: No Symptoms Immunological/Allergic: No Symptoms Objective Exam General Appearance: no apparent distress, alert Neurologic Exam: alert, oriented x 3, cooperative, normal mood/affect, nml cerebellar function, sensation nml, No motor deficits Skin Exam: normal color, warm, dry Eye Exam: PERRL, EOMI, eyes nml inspection Ears, Nose, Throat Exam: normal ENT inspection, pharynx normal, moist mucous membranes Neck Exam: normal inspection, non-tender, supple, full range of motion Respiratory Exam: normal breath sounds, lungs clear, No respiratory distress Cardiovascular Exam: irregular (Afib RVR) Gastrointestinal/Abdomen Exam: soft, No tenderness, No mass Extremity Exam: normal inspection, normal range of motion Back Exam: normal inspection, normal range of motion, No CVA tenderness, No vertebral tenderness Male Genitalia Exam: deferred Rectal Exam: deferred OBJECTIVE DATA Vital Signs: Vital Signs - 24 hr Temp Pulse Resp BP BP Pulse Ox 04/27/23 12:00 97.8 F 110 H 12 108/75 96 04/27/23 11:34 128 H 117/68 04/27/23 11:30 121 H 04/27/23 10:48 112 H 108/78 04/27/23 10:14 114 H 117/68 04/27/23 09:24 119 H 18 98 04/27/23 09:22 127 H 102/67 04/27/23 08:48 131 H 97/57 04/27/23 07:20 106 H 04/27/23 07:00 106 H 18 142/86 97 04/27/23 06:00 111 H 18 129/95 92 L 04/27/23 05:00 111 H 23 92 L 04/27/23 04:00 98.1 F 104 H 21 116/84 92 L 04/27/23 03:00 103 H 20 93 L 04/27/23 02:00 98 H 24 87/70 92 L 04/27/23 00:01 101 H 04/27/23 00:00 98.1 F 101 H 24 100/74 92 L 04/26/23 22:00 97 H 21 92/64 94 L 04/26/23 21:33 100 H 24 103/73 92 L 04/26/23 21:30 93 L 04/26/23 21:00 103 H 15 98/68 93 L 04/26/23 20:39 92 H 20 80/56 91 L 04/26/23 20:25 123 H 26 H 92 L 04/26/23 20:00 97 H 91 L 04/26/23 18:43 97 H 80/53 04/26/23 18:12 98 H 71/48 04/26/23 17:56 109 H 04/26/23 17:00 107 H 18 118/86 97 04/26/23 16:00 115 H 18 130/98 97 04/26/23 15:16 124 H 132/105 04/26/23 15:15 124 H 18 132/102 96 04/26/23 15:00 97.7 F 116 H 20 136/97 95 04/26/23 14:36 97.7 F 114 H 24 136/97 94 L 04/26/23 13:45 114 H 24 125/85 94 L 04/26/23 13:30 117 H 29 H 132/90 92 L 04/26/23 13:19 109 H 29 H 124/95 94 L 04/26/23 13:15 122 H 23 114/98 96 04/26/23 13:00 122 H 16 133/85 95 04/26/23 12:45 125 H 24 149/98 94 L Pain Assessment - Last Documented Pain Intensity 0 Intake and Output: Intake & Output 04/25/23 04/26/23 04/27/23 04/28/23 11:59 11:59 11:59 11:59 Intake Total 1720 Output Total 3750 300 Balance -2030 -300 Weight 80.6 kg 80.6 kg Lab Results: Lab Results-Last 24 Hours 04/26/23 04/26/23 04/26/23 Range/Units 11:30 14:42 14:42 WBC 9.3 (4.0-10.5) x10^3/uL RBC 3.73 L (4.1-5.6) x10^6/uL Hgb 12.2 L (12.5-18.0) g/dL Hct 37.9 L (42-50) % MCV 101.6 H (78-100) fL MCH 32.7 H (26-32) pg MCHC 32.2 (32-36) g/dL RDW 14.6 H (11.5-14.0) % Plt Count 147 L (150-450) x10^3/uL MPV 11.1 H (7.5-11.0) fL PT 21.4 H (9.4-12.5) SECONDS INR 2.07 (0.8-3.0) D-Dimer 0.80 H* (0.0-0.50) mg/L Sodium 141 (137-145) mmol/L Potassium 3.1 L D (3.5-5.1) mmol/L Chloride 103 (98-107) mmol/L Carbon Dioxide 27 (22-30) mmol/L Anion Gap 14.5 (5-15) MEQ/L BUN 24 H (9-20) mg/dL Creatinine 0.91 (0.66-1.25) mg/dL Estimated GFR > 60.0 ML/MIN Glucose 119 H (74-106) mg/dL Calcium 8.5 (8.4-10.2) mg/dL Magnesium (1.6-2.3) mg/dL Total Bilirubin (0.2-1.3) mg/dL AST (17-59) U/L ALT (0-50) U/L Alkaline Phosphatase (38-126) U/L Troponin I (0.000-0.034) ng/mL NT-Pro-B Natriuret Pep 25039 (<300) pg/mL Serum Total Protein (6.3-8.2) g/dL Albumin (3.5-5.0) g/dL Urine Opiates Level (NEGATIVE) Ur Methadone (NEGATIVE) Urine Barbiturates (NEGATIVE) Ur Phencyclidine (PCP) (NEGATIVE) Urine Amphetamine (NEGATIVE) U Benzodiazepine Level (NEGATIVE) Urine Cocaine (NEGATIVE) Urine Marijuana (THC) (NEGATIVE) 04/26/23 04/26/23 04/26/23 Range/Units 14:45 14:55 19:00 WBC (4.0-10.5) x10^3/uL RBC (4.1-5.6) x10^6/uL Hgb (12.5-18.0) g/dL Hct (42-50) % MCV (78-100) fL MCH (26-32) pg MCHC (32-36) g/dL RDW (11.5-14.0) % Plt Count (150-450) x10^3/uL MPV (7.5-11.0) fL PT (9.4-12.5) SECONDS INR (0.8-3.0) D-Dimer (0.0-0.50) mg/L Sodium (137-145) mmol/L Potassium (3.5-5.1) mmol/L Chloride (98-107) mmol/L Carbon Dioxide (22-30) mmol/L Anion Gap (5-15) MEQ/L BUN (9-20) mg/dL Creatinine (0.66-1.25) mg/dL Estimated GFR ML/MIN Glucose (74-106) mg/dL Calcium (8.4-10.2) mg/dL Magnesium (1.6-2.3) mg/dL Total Bilirubin (0.2-1.3) mg/dL AST (17-59) U/L ALT (0-50) U/L Alkaline Phosphatase (38-126) U/L Troponin I 0.021 0.025 (0.000-0.034) ng/mL NT-Pro-B Natriuret Pep (<300) pg/mL Serum Total Protein (6.3-8.2) g/dL Albumin (3.5-5.0) g/dL Urine Opiates Level NEGATIVE (NEGATIVE) Ur Methadone NEGATIVE (NEGATIVE) Urine Barbiturates NEGATIVE (NEGATIVE) Ur Phencyclidine (PCP) NEGATIVE (NEGATIVE) Urine Amphetamine NEGATIVE (NEGATIVE) U Benzodiazepine Level NEGATIVE (NEGATIVE) Urine Cocaine NEGATIVE (NEGATIVE) Urine Marijuana (THC) NEGATIVE (NEGATIVE) 04/26/23 04/26/23 04/27/23 Range/Units 20:43 20:43 05:20 WBC 5.0 (4.0-10.5) x10^3/uL RBC 3.19 L (4.1-5.6) x10^6/uL Hgb 10.3 L (12.5-18.0) g/dL Hct 31.8 L (42-50) % MCV 99.7 (78-100) fL MCH 32.3 H (26-32) pg MCHC 32.4 (32-36) g/dL RDW 14.8 H (11.5-14.0) % Plt Count 100 L (150-450) x10^3/uL MPV 12.6 H (7.5-11.0) fL PT (9.4-12.5) SECONDS INR (0.8-3.0) D-Dimer (0.0-0.50) mg/L Sodium 142 (137-145) mmol/L Potassium 3.2 L (3.5-5.1) mmol/L Chloride 105 (98-107) mmol/L Carbon Dioxide 30 (22-30) mmol/L Anion Gap 10.2 (5-15) MEQ/L BUN 27 H (9-20) mg/dL Creatinine 1.09 (0.66-1.25) mg/dL Estimated GFR > 60.0 ML/MIN Glucose 86 (74-106) mg/dL Calcium 7.8 L (8.4-10.2) mg/dL Magnesium (1.6-2.3) mg/dL Total Bilirubin (0.2-1.3) mg/dL AST (17-59) U/L ALT (0-50) U/L Alkaline Phosphatase (38-126) U/L Troponin I 0.022 (0.000-0.034) ng/mL NT-Pro-B Natriuret Pep (<300) pg/mL Serum Total Protein (6.3-8.2) g/dL Albumin (3.5-5.0) g/dL Urine Opiates Level (NEGATIVE) Ur Methadone (NEGATIVE) Urine Barbiturates (NEGATIVE) Ur Phencyclidine (PCP) (NEGATIVE) Urine Amphetamine (NEGATIVE) U Benzodiazepine Level (NEGATIVE) Urine Cocaine (NEGATIVE) Urine Marijuana (THC) (NEGATIVE) 04/27/23 04/27/23 04/27/23 Range/Units 05:20 05:20 08:11 WBC (4.0-10.5) x10^3/uL RBC (4.1-5.6) x10^6/uL Hgb (12.5-18.0) g/dL Hct (42-50) % MCV (78-100) fL MCH (26-32) pg MCHC (32-36) g/dL RDW (11.5-14.0) % Plt Count (150-450) x10^3/uL MPV (7.5-11.0) fL PT (9.4-12.5) SECONDS INR (0.8-3.0) D-Dimer (0.0-0.50) mg/L Sodium 140 (137-145) mmol/L Potassium 3.1 L 3.2 L (3.5-5.1) mmol/L Chloride 105 (98-107) mmol/L Carbon Dioxide 27 (22-30) mmol/L Anion Gap 9.9 (5-15) MEQ/L BUN 29 H (9-20) mg/dL Creatinine 0.91 (0.66-1.25) mg/dL Estimated GFR > 60.0 ML/MIN Glucose 89 (74-106) mg/dL Calcium 7.9 L (8.4-10.2) mg/dL Magnesium 2.0 (1.6-2.3) mg/dL Total Bilirubin 2.10 H (0.2-1.3) mg/dL AST 38 (17-59) U/L ALT 32 (0-50) U/L Alkaline Phosphatase 60 (38-126) U/L Troponin I (0.000-0.034) ng/mL NT-Pro-B Natriuret Pep (<300) pg/mL Serum Total Protein 6.4 (6.3-8.2) g/dL Albumin 3.3 L (3.5-5.0) g/dL Urine Opiates Level (NEGATIVE) Ur Methadone (NEGATIVE) Urine Barbiturates (NEGATIVE) Ur Phencyclidine (PCP) (NEGATIVE) Urine Amphetamine (NEGATIVE) U Benzodiazepine Level (NEGATIVE) Urine Cocaine (NEGATIVE) Urine Marijuana (THC) (NEGATIVE) 04/27/23 Range/Units 12:16 WBC (4.0-10.5) x10^3/uL RBC (4.1-5.6) x10^6/uL Hgb (12.5-18.0) g/dL Hct (42-50) % MCV (78-100) fL MCH (26-32) pg MCHC (32-36) g/dL RDW (11.5-14.0) % Plt Count (150-450) x10^3/uL MPV (7.5-11.0) fL PT (9.4-12.5) SECONDS INR (0.8-3.0) D-Dimer (0.0-0.50) mg/L Sodium (137-145) mmol/L Potassium 3.2 L (3.5-5.1) mmol/L Chloride (98-107) mmol/L Carbon Dioxide (22-30) mmol/L Anion Gap (5-15) MEQ/L BUN (9-20) mg/dL Creatinine (0.66-1.25) mg/dL Estimated GFR ML/MIN Glucose (74-106) mg/dL Calcium (8.4-10.2) mg/dL Magnesium (1.6-2.3) mg/dL Total Bilirubin (0.2-1.3) mg/dL AST (17-59) U/L ALT (0-50) U/L Alkaline Phosphatase (38-126) U/L Troponin I (0.000-0.034) ng/mL NT-Pro-B Natriuret Pep (<300) pg/mL Serum Total Protein (6.3-8.2) g/dL Albumin (3.5-5.0) g/dL Urine Opiates Level (NEGATIVE) Ur Methadone (NEGATIVE) Urine Barbiturates (NEGATIVE) Ur Phencyclidine (PCP) (NEGATIVE) Urine Amphetamine (NEGATIVE) U Benzodiazepine Level (NEGATIVE) Urine Cocaine (NEGATIVE) Urine Marijuana (THC) (NEGATIVE) Radiology Exams: Radiology Procedures Category Date Time Status CHEST 2 VIEWS (PA AND LAT) Routine Exams 04/28/23 06:00 Ordered CHEST 2 VIEWS (PA AND LAT) Stat Exams 04/26/23 11:36 Completed Assessment/Plan (1) Atrial fibrillation with RVR Current Visit: No Status: Acute Assessment & Plan: 04/26 - Continue cardizem gtt as started in ER - Tele - Continue metoprolol - electrical technician Dr. Adams - HX drug use UDS- negative - Continue warfarin - hemodynamically stable 04/27 - Cardizem gtt stopped last night due to low BP - Continued A-fib RVR -Start Amiodarone 400mg BID and Digoxin 0.25 mg IV Q6 X2 - Tele- cardiology consult in AM Code(s): I48.91 - UNSPECIFIED ATRIAL FIBRILLATION (2) CHF (congestive heart failure) Current Visit: No Status: Acute Assessment & Plan: 04/26 - Pt was to be on Entresto as it was prescribed in January at at last IP hospital visit. He does not recall this and is a poor historian. - Lasix increased to 40mg BID - Trop x3, 1st one negative - BNP 15649 - Chest XR: Continued nonacute chest with chronic features. - sxs improving with extra lasix gave in ER. 04/27 - SOB improved with lasix - Trop x3 negative Code(s): I50.9 - HEART FAILURE, UNSPECIFIED (3) Shortness of breath Current Visit: No Status: Acute Assessment & Plan: 04/26 - 2/ CHF fluid overload - Pt not requiring oxygen - RA- 94% - d-dimer 0.80 04/27 - SOB improved from yesterday with Lasix Code(s): R06.02 - SHORTNESS OF BREATH (4) HTN (hypertension) Current Visit: No Status: Chronic Qualifiers: Hypertension type: essential hypertension Qualified Code(s): I10 - Essential (primary) hypertension Assessment & Plan: - controlled - continue home meds Code(s): I10 - ESSENTIAL (PRIMARY) HYPERTENSION (5) Chronic anticoagulation Current Visit: Yes Status: Acute Assessment & Plan: - Continue warfarin - Pt/INR - Pharmacy to manage Code(s): Z79.01 - USP (CURRENT) USE OF ANTICOAGULANTS (6) Hypokalemia Current Visit: No Status: Acute Assessment & Plan: 04/26 3.2 replaced 04/27 3.2 replaced - electrolyte replacement protocol started - 09/12 Lasix VTE: Coumadin PPI: Protonix Code status: Full Next of kin: Basilio Lezama [phone] Code(s): E87.6 - HYPOKALEMIA
[2023-04-27] MEDS ORDERED: PHARMACY DOSING REQUEST MC ONE (13:00)
[2023-04-27 13:21] LABS: INR 1.71 (0.8-3.0); PROTIME 17.9 SECONDS (9.4-12.5)
[2023-04-27] MEDS: ENOXAPARIN SODIUM SQ SCH ×2 (14:01→23:53)
[2023-04-27] MEDS: JANTOVEN PO SCH (17:11)
[2023-04-27] MEDS ORDERED: Coumadin 2 MG PO ONE (18:00)
[2023-04-27] MEDS: ZOCOR 20MG PO SCH (21:21)
[2023-04-27] MEDS: MELATONIN PO SCH (21:21)
[2023-04-27] MEDS: ATARAX 25 MG PO PRN (21:21)
[2023-04-28 05:01] LABS: Hematocrit 39.4 % (42-50); Mean Cell Volume 99.5 fL (78-100); Mean Corpuscular Hemoglobin 32.8 pg (26-32); Mean Platelet Volume 12.6 fL (7.5-11.0); Platelet Count 171 x10^3/uL (150-450); Red Blood Count 3.96 x10^6/uL (4.1-5.6); Red Cell Distribution Width 14.3 % (11.5-14.0); White Blood Count 7.5 x10^3/uL (4.0-10.5)
[2023-04-28 05:18] LABS: ANION GAP 11.7 MEQ/L (5-15); BLOOD UREA NITROGEN 24 mg/dL (9-20); CHLORIDE 99 mmol/L (98-107); Carbon Dioxide 33 mmol/L (22-30); Creatinine 1 0.99 mg/dL (0.66-1.25); EST GLOMERULAR FILTRATION RATE > 60.0 ML/MIN; Glucose 99 mg/dL (74-106); INR 2.97 (0.8-3.0); MAGNESIUM 1.7 mg/dL (1.6-2.3); PROTIME 29.9 SECONDS (9.4-12.5); Potassium 3.7 mmol/L (3.5-5.1); SODIUM 140 mmol/L (137-145)
[2023-04-28] MEDS ORDERED: Magnesium 1 Gm / 100 Ml D5W*** 100 ML IV ONE (08:30)
--- NOTE | 2023-04-28 09:00 | XRAY ---
Indication: CHF. Comparison: April 26, 2023 PA/lateral chest remains hyperinflated and clear. Heart not enlarged again with left AICD. No new/acute cardiopulmonary abnormalities.
[2023-04-28] MEDS: Klor Con PO SCH ×4 (09:08→15:43)
[2023-04-28] MEDS: ATARAX 25 MG PO PRN (09:09)
[2023-04-28] MEDS: ECOTRIN 81 MG PO SCH (09:09)
[2023-04-28] MEDS: Zaroxolyn 2.5 MG PO SCH (09:09)
[2023-04-28] MEDS: Cordarone 200 MG PO SCH ×2 (09:09→21:14)
[2023-04-28] MEDS: FEOSOL 325 MG PO SCH (09:09)
[2023-04-28] MEDS: Toprol Xl 50 MG PO SCH (09:09)
[2023-04-28] MEDS: Neurontin PO SCH ×4 (09:09→21:14)
[2023-04-28] MEDS: ZOLOFT 50 MG TABLET PO SCH (09:09)
[2023-04-28] MEDS: Lasix 40 MG PO SCH ×2 (09:09→17:48)
[2023-04-28] MEDS: Protonix 40MG Tablet PO SCH (09:09)
[2023-04-28] MEDS: Dulcolax 10 MG SUPP RC SCH (09:10)
[2023-04-28] MEDS ORDERED: Docusate Sodium 100 MG PO PRN (09:42)
[2023-04-28] MEDS ORDERED: Toprol Xl 50 MG PO ONE (10:15)
[2023-04-28] MEDS ORDERED: ATARAX 25 MG PO PRN (10:30)
--- NOTE | 2023-04-28 11:10 | PCM.NOTE ---
Date and Time: 04/28/23 1102 Subjective Assessment: 04/26/23 is 67-year-old male with significant past medical history of chronic atrial fibrillation, preserved ejection fraction with heart failure, hypertension, cardiomegly, hyperlipidemia, hepatitis, and COPD. He has had multiple failed cardioversions as well as multiple pacemaker placements. He has had multiple ER visits for heart and lung problems per ER physician. He was just released from a rehab facilty after being there 2 months. He admits to smoking marijuana recently. He has a hx of drug abuse. He came to the emergency room with worsening shortness of breath for last 2 to 3 days and started having palpitations. Patient also has a recent cardioversion which failed. Again he is a poor historian and thinks this was recently but was last in the hospital at [facility] 2 months ago. Patient denies any chest pain, nausea vomiting fever chills. He was started on a cardizem gtt in the ER. 04/27/23 Pt resting in bed. He explains he feels much better today and SOB has improved. Cardizem gtt stopped last night as pt's BP dropped. HR is starting to go up again into 150's, continued A-fib RVR. Digoxin 0.25mg IV Q6 X2 ordered. Amiodarone 400mg BID started. Will continue Lasix. Pt placed on electrolyte protocol as potassium remains low this morning. Recent Echo found and pt's EJ is 45%. He has no edema and lungs are clear.Tele- cardiology to see pt tomorrow. Pt denies CP, SOB, abd pain, N/V/D. 04/28/23 Pt resting in bed. HR is better under control today and in the low 100's. BP is stable. Tele- cardiology saw the pt and increased Metoprolol to 100 Q AM and 50 Q HS. They also ordered a limited echo to be done today. They recommend possible d/c tomorrow and f/u at [place] office Friday with Dr. Adams. He is c/o of some constipation today and colace BID added. According to case management pt has been f/u OP with [facility] for wrap around services daily. He gets his BP c hecked daily with them. He is unable to have services in his home due to needing foreclosure field inspector to come and treat. If this is completed then he can have services in the home. WILL CALL CLERK he was being evaluated for a low home O2 sat at night. He has not had this concern since being admitted. However, I will see if he qualifies for home O2 while here. He denies CP, SOB, abd. pain, edema, N/V. - Review of Systems Constitutional: No Fever, No Chills Eyes: No Symptoms Ears, Nose, & Throat: No Symptoms Respiratory: No Cough, No Short Of Breath Cardiac: No Chest Pain, No Edema, No Syncope Abdominal/Gastrointestinal: Constipation, No Abdominal Pain, No Nausea, No Vomiting, No Diarrhea Genitourinary Symptoms: No Dysuria Musculoskeletal: No Back Pain, No Neck Pain Skin: No Rash Neurological: No Dizziness, No Focal Weakness, No Sensory Changes Psychological: No Symptoms Endocrine: No Symptoms Hematologic/Lymphatic: No Symptoms Immunological/Allergic: No Symptoms Objective Exam General Appearance: no apparent distress, alert Neurologic Exam: alert, oriented x 3, cooperative, normal mood/affect, nml cerebellar function, sensation nml, No motor deficits Skin Exam: normal color, warm, dry Eye Exam: PERRL, EOMI, eyes nml inspection Ears, Nose, Throat Exam: normal ENT inspection, pharynx normal, moist mucous membranes Neck Exam: normal inspection, non-tender, supple, full range of motion Respiratory Exam: normal breath sounds, lungs clear, No respiratory distress Cardiovascular Exam: normal heart sounds, irregular Gastrointestinal/Abdomen Exam: soft, No tenderness, No mass Extremity Exam: normal inspection, normal range of motion Back Exam: normal inspection, normal range of motion, No CVA tenderness, No vertebral tenderness Male Genitalia Exam: deferred Rectal Exam: deferred OBJECTIVE DATA Vital Signs: Vital Signs - 24 hr Temp Pulse Resp BP Pulse Ox 04/28/23 10:00 119 H 21 134/87 04/28/23 07:49 111 H 04/28/23 07:40 98 F 105 H 15 132/94 96 04/28/23 07:19 107 H 16 96 04/28/23 06:00 115 H 19 132/94 04/28/23 03:41 98 F 94 H 14 147/94 04/28/23 02:00 109 H 18 139/87 04/28/23 00:26 113 H 18 130/89 98 04/27/23 23:52 108 H 04/27/23 23:51 98.1 F 108 H 22 150/105 99 04/27/23 22:00 113 H 18 124/75 04/27/23 21:45 108 H 16 99 04/27/23 20:18 120 H 22 99 04/27/23 19:38 98.1 F 113 H 22 143/89 99 04/27/23 18:15 115 H 122/94 04/27/23 17:19 108 H 129/86 04/27/23 15:53 119 H 12 106/71 97 04/27/23 14:00 111 H 12 107/67 96 04/27/23 12:00 97.8 F 110 H 12 108/75 96 04/27/23 11:34 128 H 117/68 04/27/23 11:30 121 H Pain Assessment - Last Documented Pain Intensity 8 Intake and Output: Intake & Output 04/25/23 04/26/23 04/27/23 04/28/23 11:59 11:59 11:59 11:59 Intake Total 1720 240 Output Total 3750 3500 Balance -2029 Weight 80.6 kg 80.6 kg Lab Results: Lab Results-Last 24 Hours 04/27/23 04/27/23 04/27/23 Range/Units 05:00 12:16 16:25 WBC (4.0-10.5) x10^3/uL RBC (4.1-5.6) x10^6/uL Hgb (12.5-18.0) g/dL Hct (42-50) % MCV (78-100) fL MCH (26-32) pg MCHC (32-36) g/dL RDW (11.5-14.0) % Plt Count (150-450) x10^3/uL MPV (7.5-11.0) fL PT 17.9 H (9.4-12.5) SECONDS INR 1.71 (0.8-3.0) Sodium (137-145) mmol/L Potassium 3.2 L 4.2 D (3.5-5.1) mmol/L Chloride (98-107) mmol/L Carbon Dioxide (22-30) mmol/L Anion Gap (5-15) MEQ/L BUN (9-20) mg/dL Creatinine (0.66-1.25) mg/dL Estimated GFR ML/MIN Glucose (74-106) mg/dL Calcium (8.4-10.2) mg/dL Magnesium (1.6-2.3) mg/dL 04/28/23 04/28/23 04/28/23 Range/Units 04:13 04:13 04:13 WBC 7.5 (4.0-10.5) x10^3/uL RBC 3.96 L (4.1-5.6) x10^6/uL Hgb 13.0 D (12.5-18.0) g/dL Hct 39.4 L (42-50) % MCV 99.5 (78-100) fL MCH 32.8 H (26-32) pg MCHC 33.0 (32-36) g/dL RDW 14.3 H (11.5-14.0) % Plt Count 171 D (150-450) x10^3/uL MPV 12.6 H (7.5-11.0) fL PT 29.9 H (9.4-12.5) SECONDS INR 2.97 D (0.8-3.0) Sodium 140 (137-145) mmol/L Potassium 3.7 (3.5-5.1) mmol/L Chloride 99 (98-107) mmol/L Carbon Dioxide 33 H (22-30) mmol/L Anion Gap 11.7 (5-15) MEQ/L BUN 24 H (9-20) mg/dL Creatinine 0.99 (0.66-1.25) mg/dL Estimated GFR > 60.0 ML/MIN Glucose 99 (74-106) mg/dL Calcium 9.0 (8.4-10.2) mg/dL Magnesium 1.7 (1.6-2.3) mg/dL Radiology Exams: Radiology Procedures Category Date Time Status CHEST 2 VIEWS (PA AND LAT) Routine Exams 04/28/23 06:00 Completed CHEST 2 VIEWS (PA AND LAT) Stat Exams 04/26/23 11:36 Completed Multi-Disciplinary Progress Notes: Multi-Disciplinary Progress Notes 04/28/23 07:46 Pharmacy Note by Mario Wang [facility] TO MANAGE COUMADIN 04/27/23 INR = 1.7 PT IN AFIB STARTED ON AMIODARONE STARTED LOVENOX 1 MG/KG UNTIL INR > 2.0 GAVE ADDITIONAL 4 MG TODAY FOR TOTAL 6.5 MG 04/28/23 INR = 2.97 WILL HOLD TODAYS DOSE BECAUSE INR TOMORROW WILL MOST LIKELY BE ELEVATED DC'D LOVENOX SINCE INR > 2.0 NEED TO WATCH CLOSELY SINCE AMIODARONE STARTED KAH Initialized on 04/28/23 07:46 - END OF NOTE Assessment/Plan (1) Atrial fibrillation with RVR Current Visit: No Status: Acute Assessment & Plan: 04/26 - Continue cardizem gtt as started in ER - Tele - Continue metoprolol - customer success representative Dr. Adams - HX drug use UDS- negative - Continue warfarin - hemodynamically stable 04/27 - Cardizem gtt stopped last night due to low BP - Continued A-fib RVR -Start Amiodarone 400mg BID and Digoxin 0.25 mg IV Q6 X2 - Tele- cardiology consult in AM 04/28 - Tele- cardiology consult - Metoprolol changed to 100mg in AM and 50mg at HS. - Pt to f/u OP Friday with Dr. Adams in [place] - Limited Echo ordered for today Code(s): I48.91 - UNSPECIFIED ATRIAL FIBRILLATION (2) CHF (congestive heart failure) Current Visit: No Status: Acute Assessment & Plan: 04/26 - Pt was to be on Entresto as it was prescribed in January at at last hospital visit. He does not recall this and is a poor historian. - Lasix increased to 40mg BID - Trop x3, 1st one negative - BNP 63329 - Chest XR: Continued nonacute chest with chronic features. - sxs improving with extra lasix gave in ER. 04/27 - SOB improved with lasix - Trop x3 negative Code(s): I50.9 - HEART FAILURE, UNSPECIFIED (3) Shortness of breath Current Visit: No Status: Acute Assessment & Plan: 04/26 - 2/2 CHF fluid overload - Pt not requiring oxygen - RA- 94% - d-dimer 0.80 04/27 - SOB improved from yesterday with Lasix Code(s): R06.02 - SHORTNESS OF BREATH (4) HTN (hypertension) Current Visit: No Status: Chronic Qualifiers: Hypertension type: essential hypertension Qualified Code(s): I10 - Essential (primary) hypertension Assessment & Plan: - controlled - continue home meds Code(s): I10 - ESSENTIAL (PRIMARY) HYPERTENSION (5) Chronic anticoagulation Current Visit: Yes Status: Acute Assessment & Plan: - Continue warfarin - Pt/INR - Pharmacy to manage Code(s): Z79.01 - AQUATIC BIOLOGIST (CURRENT) USE OF ANTICOAGULANTS (6) Hypokalemia Current Visit: No Status: Acute Assessment & Plan: 04/26 3.2 replaced 04/27 3.2 replaced - electrolyte replacement protocol started - 09/12 Lasix 04/28 - improved- trend labs - Goal of K+ >4 and Mg+ >2 Code(s): E87.6 - HYPOKALEMIA (7) Hypoxia, sleep related Current Visit: Yes Status: Acute Assessment & Plan: - Was being evalauted for home oxygen use at night WILL CALL CLERK - order to qualify pt for home O2 ordered. - This has not been a concern since admission. VTE: Coumadin PPI: Protonix Code status: Full Next of kin: Basilio Lezama [phone] Code(s): G47.34 - IDIO SLEEP RELATED NONOBSTRUCTIVE ALVEOLAR HYPOVENTILATION
[2023-04-28] MEDS: ZOCOR 20MG PO SCH (21:14)
[2023-04-28] MEDS: MELATONIN PO SCH (21:14)
[2023-04-28] MEDS ORDERED: Toprol Xl 50 MG PO SCH (22:00)
[2023-04-29 04:56] LABS: Hematocrit 42.9 % (42-50); Hemoglobin 14.2 g/dL (12.5-18.0); Mean Cell Volume 98.8 fL (78-100); Mean Corpuscular Hemoglobin 32.7 pg (26-32); Mean Corpuscular Hgb Concent. 33.1 g/dL (32-36); Mean Platelet Volume 11.4 fL (7.5-11.0); Platelet Count 232 x10^3/uL (150-450); Red Blood Count 4.34 x10^6/uL (4.1-5.6); Red Cell Distribution Width 14.1 % (11.5-14.0); White Blood Count 6.7 x10^3/uL (4.0-10.5)
[2023-04-29 05:14] LABS: ALBUMIN 4.1 g/dL (3.5-5.0); CHLORIDE 94 mmol/L (98-107); Glucose 96 mg/dL (74-106); SGOT/AST 40 U/L (17-59); Total Protein 8.1 g/dL (6.3-8.2)
[2023-04-29 05:34] LABS: ALKALINE PHOSPHATASE 84 U/L (38-126); ANION GAP 12.8 MEQ/L (5-15); BLOOD UREA NITROGEN 36 mg/dL (9-20); Calcium 9.3 mg/dL (8.4-10.2); Carbon Dioxide 36 mmol/L (22-30); Creatinine 1 1.24 mg/dL (0.66-1.25); EST GLOMERULAR FILTRATION RATE > 60.0 ML/MIN; MAGNESIUM 1.8 mg/dL (1.6-2.3); Potassium 3.8 mmol/L (3.5-5.1); SGPT/ALT 36 U/L (0-50); SODIUM 140 mmol/L (137-145)
[2023-04-29] MEDS: Neurontin PO SCH (08:29)
[2023-04-29] MEDS: Cordarone 200 MG PO SCH (08:29)
[2023-04-29] MEDS: Zaroxolyn 2.5 MG PO SCH (08:29)
[2023-04-29] MEDS: Protonix 40MG Tablet PO SCH (08:29)
[2023-04-29] MEDS: FEOSOL 325 MG PO SCH (08:29)
[2023-04-29] MEDS: ZOLOFT 50 MG TABLET PO SCH (08:29)
[2023-04-29] MEDS: ECOTRIN 81 MG PO SCH (08:29)
[2023-04-29] MEDS: Lasix 40 MG PO SCH (08:30)
[2023-04-29 09:28] LABS: INR 3.18 (0.8-3.0); PROTIME 31.8 SECONDS (9.4-12.5)
[2023-04-29 09:45] VITALS: BP 150/99; PULSE 107; RESP 23; TEMP 98.7; O2SAT 98
[2023-04-29] MEDS ORDERED: Toprol Xl 100 MG PO SCH (10:00)
--- NOTE | 2023-04-29 11:43 | PCM.DS ---
Discharge Summary Date of Admission: 04/27/23 12:43 Date of Discharge: 04/29/23 Admitting Physician: CARO LOZA MD Consults: Consults on Case 04/26/23 14:31 Consult Cardiology ROUTINE Primary Care Provider: DOMINIQUE MORATAYA Allergies Allergies codeine [Codeine] Allergy (Mild, Verified 04/26/23 11:30) Hives pt states hives are quick onset Hospital Summary - Hospital Course Hospital Course: 04/26/23 is 67-year-old male with significant past medical history of chronic atrial fibrillation, preserved ejection fraction with heart failure, hypertension, cardiomegly, hyperlipidemia, hepatitis, and COPD. He has had multiple failed cardioversions as well as multiple pacemaker placements. He has had multiple ER visits for heart and lung problems per ER physician. He was just released from a rehab facilty after being there 2 months. He admits to smoking marijuana recently. He has a hx of drug abuse. He came to the emergency room with worsening shortness of breath for last 2 to 3 days and started having palpitations. Patient also has a recent cardioversion which failed. Again he is a poor historian and thinks this was recently but was last in the hospital at [facility] 2 months ago. Patient denies any chest pain, nausea vomiting fever chills. He was started on a cardizem gtt in the ER. 04/27/23 Pt resting in bed. He explains he feels much better today and SOB has improved. Cardizem gtt stopped last night as pt's BP dropped. HR is starting to go up again into 150's, continued A-fib RVR. Digoxin 0.25mg IV Q6 X2 ordered. Amiodarone 400mg BID started. Will continue Lasix. Pt placed on electrolyte protocol as potassium remains low this morning. Recent Echo found and pt's EJ is 45%. He has no edema and lungs are clear.Tele- cardiology to see pt tomorrow. Pt denies CP, SOB, abd pain, N/V/D. 04/28/23 Pt resting in bed. HR is better under control today and in the low 100's. BP is stable. Tele- cardiology saw the pt and increased Metoprolol to 100 Q AM and 50 Q HS. They also ordered a limited echo to be done today. They recommend possible d/c tomorrow and f/u at [facility] Friday with Dr. Mayes. He is c/o of some constipation today and colace BID added. According to case management pt has been f/u OP with [facility] for wrap around services daily. He gets his BP checked daily with them. He is unable to have services in his home due to needing leather grader to come and treat. If this is completed then he can have services in the home. 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 He has not had this concern since being admitted. However, I will see if he qualifies for home O2 while here. He denies CP, SOB, abd. pain, edema, N/V. 04/28/23 Pt resting in bed. HR and BP controlled overnight. Pt to f/u with cardiology tomorrow. He did qualify for home O2 overnight. Pt states he is ready to go home today. He denies CP, SOB, Abd. pain, N/V/D. - Vitals & Intake/Output Vital Signs: Vital Signs Temperature 98.7 F 04/29/23 09:44 Pulse Rate 107 H 04/29/23 09:44 Respiratory Rate 04/29/23 09:44 Blood Pressure 150/99 04/29/23 09:44 O2 Sat by Pulse Oximetry 98 04/29/23 09:44 Intake & Output: Intake & Output 04/26/23 04/27/23 04/28/23 04/29/23 11:59 11:59 11:59 11:59 Intake Total 8449 741 2531 Output Total 3750 3500 1600 Balance -2029 Weight 80.6 kg 80.6 kg 82.2 kg 82 kg - Lab Result Diagrams: 04/29/23 04:00 04/29/23 04:00 Lab Results-Last 24 Hrs: Lab Results-Last 24 Hours 04/28/23 04/28/23 04/29/23 Range/Units 13:10 17:18 04:00 WBC 6.7 (4.0-10.5) x10^3/uL RBC 4.34 (4.1-5.6) x10^6/uL Hgb 14.2 (12.5-18.0) g/dL Hct 42.9 (42-50) % MCV 98.8 (78-100) fL MCH 32.7 H (26-32) pg MCHC 33.1 (32-36) g/dL RDW 14.1 H (11.5-14.0) % Plt Count 232 D (150-450) x10^3/uL MPV 11.4 H (7.5-11.0) fL PT (9.4-12.5) SECONDS INR (0.8-3.0) Sodium (137-145) mmol/L Potassium 3.7 4.1 (3.5-5.1) mmol/L Chloride (98-107) mmol/L Carbon Dioxide (22-30) mmol/L Anion Gap (5-15) MEQ/L BUN (9-20) mg/dL Creatinine (0.66-1.25) mg/dL Estimated GFR ML/MIN Glucose (74-106) mg/dL Calcium (8.4-10.2) mg/dL Magnesium (1.6-2.3) mg/dL Total Bilirubin (0.2-1.3) mg/dL AST (17-59) U/L ALT (0-50) U/L Alkaline Phosphatase (38-126) U/L Serum Total Protein (6.3-8.2) g/dL Albumin (3.5-5.0) g/dL 04/29/23 04/29/23 Range/Units 04:00 04:15 WBC (4.0-10.5) x10^3/uL RBC (4.1-5.6) x10^6/uL Hgb (12.5-18.0) g/dL Hct (42-50) % MCV (78-100) fL MCH (26-32) pg MCHC (32-36) g/dL RDW (11.5-14.0) % Plt Count (150-450) x10^3/uL MPV (7.5-11.0) fL PT 31.8 H (9.4-12.5) SECONDS INR 3.18 H (0.8-3.0) Sodium 140 (137-145) mmol/L Potassium 3.8 (3.5-5.1) mmol/L Chloride 94 L (98-107) mmol/L Carbon Dioxide 36 H (22-30) mmol/L Anion Gap 12.8 (5-15) MEQ/L BUN 36 H (9-20) mg/dL Creatinine 1.24 (0.66-1.25) mg/dL Estimated GFR > 60.0 ML/MIN Glucose 96 (74-106) mg/dL Calcium 9.3 (8.4-10.2) mg/dL Magnesium 1.8 (1.6-2.3) mg/dL Total Bilirubin 0.80 (0.2-1.3) mg/dL AST 40 (17-59) U/L ALT 36 (0-50) U/L Alkaline Phosphatase 84 (38-126) U/L Serum Total Protein 8.1 (6.3-8.2) g/dL Albumin 4.1 (3.5-5.0) g/dL - Radiology Exams Ordered Rad Exams-Entire Visit: Radiology Procedures Category Date Time Status CHEST 2 VIEWS (PA AND LAT) Routine Exams 04/28/23 06:00 Completed - Procedures and Test Procedures and Tests throughout Hospitalization: Therapy Orders & Screens 04/26/23 14:31 Oxygen NASAL CANNULA 2 lpm Comment: Titrate for SaO2 equal or >92% Diagnosis: CHF 04/26/23 15:00 Respiratory Therapy Assessment DAILY Comment: Diagnosis: CHF 04/28/23 11:09 Qualify for Home Oxygen ROUTINE Comment: Diagnosis: CHF Discharge Exam General Appearance: no apparent distress, alert Neurologic Exam: alert, oriented x 3, cooperative, normal mood/affect, nml cerebellar function, sensation nml, No motor deficits Eye Exam: PERRL, EOMI, eyes nml inspection Ears, Nose, Throat Exam: normal ENT inspection, pharynx normal, moist mucous membranes Neck Exam: normal inspection, non-tender, supple, full range of motion Respiratory Exam: normal breath sounds, lungs clear, No respiratory distress Cardiovascular Exam: normal heart sounds, irregular Gastrointestinal/Abdomen Exam: soft, No tenderness, No mass Male Genitalia Exam: deferred Rectal Exam: deferred Back Exam: normal inspection, normal range of motion, No CVA tenderness, No vertebral tenderness Extremity Exam: normal inspection, normal range of motion Skin Exam: normal color, warm, dry Final Diagnosis/Problem List - Final Discharge Diagnosis/Problem (1) Atrial fibrillation with RVR Current Visit: No Status: Acute Code(s): I48.91 - UNSPECIFIED ATRIAL FIBRILLATION (2) CHF (congestive heart failure) Current Visit: No Status: Acute Code(s): I50.9 - HEART FAILURE, UNSPECIFIED (3) Shortness of breath Current Visit: No Status: Acute Code(s): R06.02 - SHORTNESS OF BREATH (4) HTN (hypertension) Current Visit: No Status: Chronic Code(s): I10 - ESSENTIAL (PRIMARY) HYPERTENSION (5) Chronic anticoagulation Current Visit: Yes Status: Acute Code(s): Z79.01 - 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 Mayes - HX drug use UDS- negative - Continue warfarin - hemodynamically stable 04/27 - Cardizem gtt stopped last night due to low BP - Continued A-fib RVR -Start Amiodarone 400mg BID and Digoxin 0.25 mg IV Q6 X2 - Tele- cardiology consult in AM 04/28 - Tele- cardiology consult - Metoprolol changed to 100mg in AM and 50mg at HS. - Pt to f/u OP Friday with Dr. Mayes in [place] - Limited Echo ordered for today 04/29 - F/u with cardiology tomorrow - HR and BP stable- HR in the 90's- low 100's Code(s): I48.91 - UNSPECIFIED ATRIAL FIBRILLATION (2) CHF (congestive heart failure) Current Visit: No Status: Acute Assessment & Plan: 04/26 - Pt was to be on Entresto as it was prescribed in January at at last hospital visit. He does not recall this and is a poor historian. - Lasix increased to 40mg BID - Trop x3, 1st one negative - BNP [id number] - Chest XR: Continued nonacute chest with chronic features. - sxs improving with extra lasix gave in ER. 04/27 - SOB improved with lasix - Trop x3 negative 04/29 - stable Code(s): I50.9 - HEART FAILURE, UNSPECIFIED (3) Shortness of breath Current Visit: No Status: Acute Assessment & Plan: 04/26 - 2 CHF fluid overload - Pt not requiring oxygen - RA- 94% - d-dimer 0.80 04/27 - SOB improved from yesterday with Lasix 04/28 - resolved Code(s): R06.02 - SHORTNESS OF BREATH (4) HTN (hypertension) Current Visit: No Status: Chronic Qualifiers: Hypertension type: essential hypertension Qualified Code(s): I10 - Essential (primary) hypertension Assessment & Plan: - controlled - continue home meds Code(s): I10 - ESSENTIAL (PRIMARY) HYPERTENSION (5) Chronic anticoagulation Current Visit: Yes Status: Acute Assessment & Plan: - Continue warfarin - Pt/INR - Pharmacy to manage Code(s): Z79.01 - 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 - This has not been a concern since admission. 04/29 - Pt did qualify for home O2 and will send home with oxygen @ 2LNC - OP sleep study ordered Code(s): G47.34 - IDIO SLEEP RELATED NONOBSTRUCTIVE ALVEOLAR HYPOVENTILATION - Discharge Discharge Date: 04/29/23 Disposition: Home, Self-Care Condition: Stable Prescriptions: New Amiodarone HCl 200 mg [Cordarone 200 MG] 400 mg PO BID 14 Days #28 tablet Docusate Sodium 100 mg [Docusate Sodium 100 MG] 100 mg PO BIDPRN PRN 30 Days #60 cap PRN Reason: Constipation Metoprolol Succinate 100 mg [Toprol Xl 100 MG] 100 mg PO QAM 30 Days #30 tablet Metoprolol Succinate 50 mg [Toprol Xl 50 MG] 50 mg PO HS 30 Days #30 tablet Continue Sertraline HCl 50 mg [Zoloft 50 mg Tablet] 50 mg PO DAILY PANTOPRAZOLE 40 mg Tablet [Protonix 40MG Tablet] 40 mg PO DAILY Hydroxyzine HCl 25 mg [Atarax 25 mg] 25 mg PO TID PRN PRN Reason: Anxiety Gabapentin 400 mg PO QID Atorvastatin Calcium [Lipitor 20MG Tablet] 20 mg PO DAILY Ferrous Sulfate 325 mg [Feosol 325 mg] 1 tab PO DAILY Furosemide [Lasix] 40 mg PO DAILY PRN PRN Reason: Shortness Of Breath Tizanidine HCl 4 mg [Zanaflex 4 MG] 4 mg PO TID PRN PRN #30 tablet PRN Reason: Muscle Spasms Nitroglycerin 0.4 mg (Ed) [Nitrostat 0.4 MG (ED)] 0.4 mg SL UD Melatonin/Pyridoxine [Melatonin 5 mg Tablet] 1 each PO HS metOLazone [Metolazone] 5 mg PO DAILY Aspirin EC 81 mg [Ecotrin 81 mg] 81 mg PO DAILY Bisacodyl 10 mg [Dulcolax 10 MG SUPP] 10 mg RC DAILY Albuterol 2.5 mg/3 ml Neb [Proventil 2.5 mg/3 ml Neb] 2.5 mg IH Q6HPRN PRN PRN Reason: Shortness Of Breath Warfarin Sodium 2 mg [Coumadin 2 MG] 2.5 mg PO DAILY Discontinued Metoprolol Succinate 50 mg [Toprol Xl 50 MG] 50 mg PO BID Outpatient Orders: Sleep Study Facility: [facility], Location: RESPIRATORY THERAPY Instructions: Heart Failure, Adult (DC), Oxygen Therapy, Adult (DC) Follow up with: DEBO MAYES [CONSULTING PHYSICIAN] - 04/30/23 9:00 am (APPOINTMENT WILL BE AT [facility]. )
[2023-04-29] MEDS ORDERED: JANTOVEN PO SCH (18:00)
== END 2023-04-29 13:25 | disposition home or self-care (01) | DRG 310 ==
LOC: ED 11:15 → ICU 14:11 → OBSVTOIN 04-27 12:43
PROVIDERS: ADMIT Internal Medicine; ATTEND Internal Medicine
DX: I48.20 Chronic atrial fibrillation, unspecified (principal); I11.0 Hypertensive heart disease with heart failure; I50.9 Heart failure, unspecified; E78.5 Hyperlipidemia, unspecified; K59.00 Constipation, unspecified; R06.02 Shortness of breath; E87.6 Hypokalemia; G47.34 Idiopathic sleep related nonobstructive alveolar hypoventilation; I25.10 Atherosclerotic heart disease of native coronary artery without angina pectoris; Z79.01 Long term (current) use of anticoagulants; Z79.899 Other long term (current) drug therapy; Z20.828 Contact with and (suspected) exposure to other viral communicable diseases
CPT/HCPCS: 0241U; 36415; 71046; 80048; 80053; 80307; 83735; 83880; 84132; 84484; 85025; 85027; 85379; 85610; 93005; 93268; 93308; 94640; 94762; 96365; 96374; 96375; 96376; 99284; G0378; Q3014; J1160; J1650; J1940; J2405; J3475; J7609; P9047; A9270-GY

== ENCOUNTER 2023-10-07 16:56 | Emergency (ER) | payer MEDICARE ==
[2023-10-07 17:37] VITALS: TEMP 97.4
[2023-10-07] MEDS ORDERED: Sodium Chloride 0.9% 1000 ML 1,000 ML ONE (17:57)
[2023-10-07] MEDS: Sodium Chloride 0.9% 1000 ML 1,000 ML IV SCH (17:59)
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
[2023-10-07 18:21] LABS: BASOPHIL % 0.3 % (0.0-0.4); Basophil (Absolute #) 0.03 x10^3/uL (0-0.4); Eosinophil % 7.1 % (0.00-5.0); Eosinophil (Absolute #) 0.75 x10^3/uL (0-0.5); Hematocrit 39.2 % (42-50); Hemoglobin 13.8 g/dL (12.5-18.0); IMMATURE GRAN # 0.08 x10^3u/L (0.00-0.03); IMMATURE GRAN % 0.8 % (0.00-0.4); Lymphocytes % 9.4 % (24.0-44.0); Mean Cell Volume 96.6 fL (78-100); Mean Corpuscular Hgb Concent. 35.2 g/dL (32-36); Mean Platelet Volume 10.5 fL (7.5-11.0); Monocyte (Absolute #) 1.37 x10^3/uL (0.0-1.3); Monocytes % 12.9 % (0.0-12.0); Neutrophil % 69.5 % (36.0-66.0); Platelet Count 247 x10^3/uL (150-450); Red Blood Count 4.06 x10^6/uL (4.1-5.6); White Blood Count 10.6 x10^3/uL (4.0-10.5)
[2023-10-07 18:38] LABS: ALBUMIN 4.2 g/dL (3.5-5.0); ANION GAP 13.2 MEQ/L (5-15); Calcium 9.1 mg/dL (8.4-10.2); Creatinine 1 2.84 mg/dL (0.66-1.25); EST GLOMERULAR FILTRATION RATE 23.7 ML/MIN; PROTIME 30.4 SECONDS (9.4-12.5); PTT 43.9 SECONDS (25.1-36.5); Total Protein 7.6 g/dL (6.3-8.2)
[2023-10-07 18:50] LABS: Potassium 2.5 mmol/L (3.5-5.1)
[2023-10-07 19:07] LABS: Appearance Clear (Clear); Bacteria None Seen /HPF (None Seen); Bilirubin Negative (Negative); Blood Negative (Negative); Epithelial Cells None Seen /HPF (None Seen); Glucose, Urine Negative (Negative); Ketones Negative (Negative); Leukocyte Esterase Negative (Negative); Nitrite Negative (Negative); Ph 6.5 (4.6-8.0); Protein,Urine Dip Negative (Negative); RBC 0-2 /HPF (0-5); WBC 0-2 /HPF (0-5)
[2023-10-07 19:08] LABS: ADD URINE CULTURE? NO (NO)
[2023-10-07] MEDS: Magnesium 1 Gm / 100 Ml D5W*** 100 ML IV SCH (20:17)
[2023-10-07] MEDS ORDERED: Magnesium 1 Gm / 100 Ml D5W*** 100 ML IV ONE ×2 (20:17→21:03)
[2023-10-07] MEDS ORDERED: Klor Con ONE (21:59)
[2023-10-07] MEDS: Klor Con PO ONE (22:01)
[2023-10-07] MEDS: POTASSIUM CHLORIDE 20 mEq IN WATER 100ML 20 MEQ/100 ML BAG IV SCH (22:02)
[2023-10-07] MEDS ORDERED: BABY ASPIRIN 81 MG CHEW ONE (22:05)
[2023-10-07] MEDS: BABY ASPIRIN 81 MG CHEW PO ONE (22:06)
[2023-10-07 22:43] VITALS: BP 122/25; PULSE 84; RESP 20; O2SAT 98
--- NOTE | 2023-10-08 08:30 | XRAY ---
Indication: Dizziness. Multiple contiguous axial images obtained through the head without contrast. Comparison: None Normal appearing brain parenchyma, ventricles, and bony calvarium for patient's age. Visualized paranasal sinuses and mastoid air cells are clear. Impression: Normal CT head without contrast exam.
== END 2023-10-07 22:41 | disposition short-term general hospital (02) ==
LOC: ED 16:56
DX: I48.91 Unspecified atrial fibrillation (principal); R42 Dizziness and giddiness; R29.6 Repeated falls; N17.9 Acute kidney failure, unspecified; E87.6 Hypokalemia; E78.5 Hyperlipidemia, unspecified; I10 Essential (primary) hypertension; Z79.01 Long term (current) use of anticoagulants; Z79.899 Other long term (current) drug therapy
CPT/HCPCS: 36000; 36415; 70450; 80053; 81001; 84484; 85025; 85610; 85730; 93005; 93041; 94760; 99285; J3475; A9270-GY

== ENCOUNTER 2024-03-16 07:53 | Day surgery (SDC) | payer MEDICARE ==
[2024-03-16 09:01] LABS: INR 1.2 (0.8-3.0); PROTIME 12.9 SECONDS (9.4-12.5)
[2024-03-16] MEDS ORDERED: CEFAZOLIN 2 GM/100 ML NaCl 2 GM/100 ML IVPB IV ONE (09:06)
[2024-03-16] MEDS ORDERED: TYLENOL EXTRA STRENGTH 500 MG ONE (09:06)
[2024-03-16] MEDS ORDERED: celeBREX 100 MG ONE (09:06)
[2024-03-16] MEDS ORDERED: TRANEXAMIC 1,000 MG/100ML-NACL 1,000 MG/100 ML PIGGYBACK IV ONE (09:06)
[2024-03-16] MEDS ORDERED: Decadron 4 MG ONE (09:06)
[2024-03-16] MEDS ORDERED: Lactated Ringers 1,000 ML IV ONE ×2 (09:06→11:40)
[2024-03-16] MEDS: Decadron 4 MG PO ONE (09:08)
[2024-03-16] MEDS: TYLENOL EXTRA STRENGTH 500 MG PO ONE (09:08)
[2024-03-16] MEDS: celeBREX 100 MG PO ONE (09:08)
[2024-03-16] MEDS: Lactated Ringers 1,000 ML IV SCH (09:09)
[2024-03-16] MEDS: CEFAZOLIN 2 GM/100 ML NaCl 2 GM/100 ML IVPB IV SCH ×2 (09:09→16:26)
[2024-03-16] MEDS: TRANEXAMIC 1,000 MG/100ML-NACL 1,000 MG/100 ML PIGGYBACK IV ONE (09:09)
[2024-03-16] MEDS: NEURONTIN PO ONE (09:10)
[2024-03-16] MEDS ORDERED: Versed 2 MG/2 ML Injection ONE (10:41)
[2024-03-16] MEDS ORDERED: SUBLIMAZE 100 MCG/2 ML ONE ×2 (10:41→13:49)
[2024-03-16] MEDS ORDERED: Xylocaine-Mpf 2% 5 Ml Vial ONE (10:41)
[2024-03-16] MEDS ORDERED: Marcaine 0.5%/Epinephrine 10 ML ONE (10:41)
[2024-03-16] MEDS ORDERED: Zofran 4 MG/2 ML VIAL ONE (11:09)
[2024-03-16] MEDS ORDERED: BRIDION 200MG/2ML IV ONE (11:09)
[2024-03-16] MEDS ORDERED: ROCURONIUM BROMIDE IV ONE (11:09)
[2024-03-16] MEDS ORDERED: Amidate 20 MG/10 ML IV ONE (11:09)
[2024-03-16] MEDS ORDERED: DIPRIVAN 200 MG/20 ML IV ONE (11:09)
[2024-03-16] MEDS ORDERED: PHENYLEPHRINE HCL ONE (11:42)
[2024-03-16] MEDS ORDERED: VANCOCIN INJECTION IV ONE (11:50)
[2024-03-16] MEDS ORDERED: MORPHINE SULFATE 2 MG INJ ONE (13:34)
[2024-03-16] MEDS ORDERED: Hydromorphone 1 mg/ml Injection ONE (13:50)
--- NOTE | 2024-03-16 13:59 | XRAY ---
Indication: Follow-up surgery. Comparison: August 13, 2021 AP/lateral left knee demonstrates new medial hemiarthroplasty with intact prosthesis. Postoperative soft tissue swelling, effusion, and soft tissue emphysema. No other bony, articular, or soft tissue abnormalities.
[2024-03-16] MEDS ORDERED: Zofran 4 MG/2 ML VIAL IV PRN (15:04)
[2024-03-16] MEDS ORDERED: Docusate Sodium 100 MG PO PRN ×2 (15:04→15:44)
[2024-03-16] MEDS ORDERED: TYLENOL EXTRA STRENGTH 500 MG PO PRN (15:06)
[2024-03-16] MEDS ORDERED: ULTRAM 50 MG PO PRN (15:07)
[2024-03-16] MEDS ORDERED: Hydromorphone 1 mg/ml Injection IV PRN (15:11)
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
[2024-03-16] MEDS ORDERED: Dulcolax 10 MG SUPP RC PRN (15:44)
[2024-03-16] MEDS ORDERED: PROVENTIL 2.5 MG/3 ML NEB IH PRN (15:44)
[2024-03-16 16:13] LABS: Absolute Neutrophil Ct (ANC) 5.27 x10^3/uL (1.78-5.38); BASOPHIL % 0.2 % (0.2-1.2); Basophil (Absolute #) 0.01 x10^3/uL (0.01-0.08); Eosinophil (Absolute #) 0 x10^3/uL (0.04-0.54); Hematocrit 33.2 % (40.1-51.0); Hemoglobin 11.1 g/dL (13.7-17.5); IMMATURE GRAN # 0.02 x10^3u/L (0.001-0.031); IMMATURE GRAN % 0.4 % (0.001-0.429); Lymphocytes % 5.3 % (21.8-53.1); Mean Cell Volume 100.3 fL (79.0-92.2); Mean Corpuscular Hemoglobin 33.5 pg (25.7-32.2); Mean Corpuscular Hgb Concent. 33.4 g/dL (32.3-36.5); Mean Platelet Volume 9.6 fL (9.4-12.4); Monocyte (Absolute #) 0.04 x10^3/uL (0.30-0.82); Monocytes % 0.7 % (5.3-12.2); Neutrophil % 93.4 % (34.0-67.9); Platelet Count 206 x10^3/uL (163-337); Red Blood Count 3.31 x10^6/uL (4.63-6.08); Red Cell Distribution Width 14.5 % (11.6-14.4); White Blood Count 5.6 x10^3/uL (4.23-9.07)
[2024-03-16] MEDS: Lasix 40 MG PO SCH (16:26)
[2024-03-16] MEDS: Sodium Chloride 0.9% 1000 ML 1,000 ML IV SCH (16:26)
[2024-03-16 16:27] LABS: ALBUMIN 3.8 g/dL (3.5-5.0); ANION GAP 13.2 MEQ/L (5-15); BILIRUBIN,TOTAL 0.7 mg/dL (0.2-1.3); Creatinine 1 1.12 mg/dL (0.66-1.25); EST GLOMERULAR FILTRATION RATE 72.5 ML/MIN; Potassium 4.3 mmol/L (3.5-5.1); Total Protein 6.9 g/dL (6.3-8.2)
[2024-03-16 16:32] LABS: Slide Review 1 YES
[2024-03-16] MEDS: PHARMACY DOSING REQUEST MC ONE (18:00)
[2024-03-16] MEDS: NORCO 5/325 MG PO PRN (18:07)
[2024-03-16] MEDS: Coumadin 3 MG PO SCH (18:07)
[2024-03-16] MEDS: ZOCOR 20MG PO SCH (21:46)
[2024-03-16] MEDS: MELATONIN PO SCH (21:46)
[2024-03-16] MEDS: Toprol Xl 50 MG PO SCH (21:46)
[2024-03-16] MEDS: Neurontin PO PRN (21:46)
[2024-03-16] MEDS ORDERED: LASIX 20 MG PO SCH (22:00)
[2024-03-16] MEDS ORDERED: NON-FORMULARY ITEM (Melatonin/Pyridoxine [Melatonin 5 Mg Tablet] 1 EACH Tablet) PO SCH (22:00)
[2024-03-16] MEDS ORDERED: NON-FORMULARY ITEM (Rosuvastatin Calcium [Rosuvastatin Calcium] 20 MG Tablet) PO SCH (22:00)
[2024-03-17] MEDS: Vitamin B-6 (Pyridoxine) 100 MG PO SCH
[2024-03-17 05:11] LABS: Absolute Neutrophil Ct (ANC) 8.58 x10^3/uL (1.78-5.38); BASOPHIL % 0.1 % (0.2-1.2); Basophil (Absolute #) 0.01 x10^3/uL (0.01-0.08); Eosinophil (Absolute #) 0 x10^3/uL (0.04-0.54); Hematocrit 32.7 % (40.1-51.0); Hemoglobin 10.8 g/dL (13.7-17.5); IMMATURE GRAN # 0.04 x10^3u/L (0.001-0.031); IMMATURE GRAN % 0.4 % (0.001-0.429); Lymphocyte (Absolute #) 0.43 x10^3/uL (1.32-3.57); Lymphocytes % 4.5 % (21.8-53.1); Mean Cell Volume 101.2 fL (79.0-92.2); Mean Corpuscular Hemoglobin 33.4 pg (25.7-32.2); Mean Platelet Volume 10.4 fL (9.4-12.4); Monocytes % 5.2 % (5.3-12.2); Neutrophil % 89.8 % (34.0-67.9); Platelet Count 192 x10^3/uL (163-337); Red Blood Count 3.23 x10^6/uL (4.63-6.08); Red Cell Distribution Width 14.6 % (11.6-14.4); White Blood Count 9.6 x10^3/uL (4.23-9.07)
[2024-03-17 05:35] LABS: ANION GAP 11.9 MEQ/L (5-15); Calcium 8.6 mg/dL (8.4-10.2); Creatinine 1 1.21 mg/dL (0.66-1.25); Potassium 3.7 mmol/L (3.5-5.1)
[2024-03-17 05:37] LABS: INR 1.15 (0.8-3.0); PROTIME 12.4 SECONDS (9.4-12.5)
[2024-03-17] MEDS ORDERED: Nitrostat 0.4 MG Tablet SL PRN (07:31)
[2024-03-17 08:10] VITALS: RESP 16
--- NOTE | 2024-03-17 08:12 | OP ---
SURGERY DATE/TIME: 03/16/2024 1884 - 3503 PREOPERATIVE DIAGNOSIS: Osteoarthritis, left knee. POSTOPERATIVE DIAGNOSIS: Osteoarthritis, left knee. PROCEDURE: Troy milli-replacement arthroplasty of left knee utilizing the [employer] instrumentation with a size medium femoral component, cemented; a size A tibia, cemented; and a 4 mm polyethylene bearing tray. SURGEON: Aki Pelletier II, DO DESCRIPTION OF PROCEDURE AND FINDINGS: The patient was identified and informed consent was obtained. The patient was then taken to the recovery room where the block was administered. The patient was then taken to the operative suite, placed in a supine position on the operating table where the general anesthetic was administered. Once an appropriate level of anesthesia had been obtained, the tourniquet was placed high on the left thigh. The left lower extremity was then prepped and draped in the usual sterile fashion. A standard time-out was taken. At this point, the leg was exsanguinated and the tourniquet elevated to 350 mmHg. The patient's knee was then placed into the [place] knee haley, and a standard midline incision was accomplished through the superior pole of the patella to the level of the tibial tubercle. The skin was incised, dissection was carried out; and utilizing a fresh #10 blade, a standard medial parapatellar incision was then accomplished. Upon entering the joint, a copious amount of grade 1 synovial fluid was encountered. The joint was inspected. The lateral femoral condyle and tibial plateau had no evidence of chondromalacia or degenerative changes. Lateral meniscus was intact. Patella had very minimal chondromalacia in the medial facet. The medial femoral condyle had hard eburnated bone along the entire weightbearing surface as did the tibial surface of the medial tibial plateau. There was some ratty frayed meniscus which remained, and this was excised. The patient's anterior cruciate ligament was inspected. It was slightly thin but intact, and the patient had a negative Sisi and drawer. At this point, it was deemed that the patient was a candidate for an Troy milli-replacement. The tibial guide was then applied after the debris had been removed and dissection had been carried out to gain good visualization. The guide was held in position with its 2 pins and removing about 2 to 3 mm of proximal tibia. The proximal tibia wafer was resected, first making the vertical cut with the reciprocating saw and then using the oscillating saw to remove the wafer of bone. At this point, any remaining portion of the meniscus was removed and debris was removed from the joint. Attention was now turned to the femoral side where the intramedullary mu was inserted and fully seated. The femoral guide was then applied and aligned, and the 2 drill holes were then made in the femur for the guides as well as for the permanent component. At this point, the posterior cutting block was applied to the femur, and the posterior wafer of bone removed; and at this point, the debris was cleaned from the joint further. The trial tibial base plate was then inserted. It was deemed that the A component was the appropriate size. At this point then, the trial femur was applied, and it was very difficult to get the 4 mm paddle and the 3 mm paddle was extremely tight, so decision was made to remove 2 mm more of proximal tibia, which was accomplished with the vertical saw and the oscillating saw. At this point, the trial tibial plate was then replaced, femoral trial was replaced, and the 4 mm paddle fit very nicely with the knee in flexion at 90 degrees. The knee was placed into extension, and a 1 mm paddle could be placed. Thus, 3 mm more of femur were milled as originally the 0 spigot was utilized to mill the femur prior to trialing the femur. Once 3 mm more of femur had been removed, the collar of bone was removed from the central peg. The osteophytes were removed from the corners, and again, the trial femoral component was applied and impacted into position. The trial tibial component had been inserted and the 4 mm paddle fit very nicely with the knee in flexion as well as with the knee in extension. Good soft tissue balance was noted throughout. The 5 mm paddle was very tight, and thus it was deemed to be too large. The trial instrumentation was removed. The tibial trial base was held with the tibial nail, and the reciprocating saw was utilized to create the canal for the keel on the permanent component. The specialized curette was utilized to clean the canal. At this point, the drill holes were made in the femur for interdigitation of the cement. The cement was then vacuum mixed, the tibial component was cemented into position followed by cementing of the femoral component, and the 4 mm paddle was inserted with the knee in about 45 degrees of flexion during the curing process. All excess cement was removed during the curing process. Once the cement had fully cured, again trial reduction with the DISH component deemed that the 4 mm polyethylene bearing tray was indeed the appropriate size for good soft tissue balance and moved nicely within the joint. The trial was removed, the joint was irrigated, and the 4 mm permanent component was then inserted and placed with digital pressure from the featheredge machine operator's fingers. The component seated well and inserted appropriately with the appropriate amount of pressure. The wound was then irrigated and closed with #2 Stratafix, 2-0 Monocryl, and subcuticular 3-0 Stratafix augmented with Prineo and Dermabond. An Aquacel dressing was applied. The patient was then transferred to the cart and taken to recovery room in satisfactory condition, having tolerated the procedure well.
[2024-03-17] MEDS: Klor Con PO SCH (09:20)
[2024-03-17] MEDS: ZOLOFT 50 MG TABLET PO SCH (09:20)
[2024-03-17] MEDS: FEOSOL 325 MG PO SCH (09:20)
[2024-03-17] MEDS: Protonix 40MG Tablet PO SCH (09:20)
[2024-03-17 09:43] LABS: Slide Review 1 YES
[2024-03-17] MEDS ORDERED: NON-FORMULARY ITEM (Potassium Chloride [Klor-Con M10] 10 MEQ Tab.Er.Prt) PO SCH (10:00)
[2024-03-17] MEDS: ECOTRIN 81 MG PO SCH (10:07)
--- NOTE | 2024-03-17 12:07 | PCM.NOTE ---
Date and Time: 03/17/24 1202 Subjective Assessment: Mr. Lezama is a 68 year old male with a pmhx of AFIB (warfarin/pacemaker/defib),CAD, hepatitis, HfpEF, HTN, and COPD (2L at [facility]) admitted by Dr. Pelletier (ortho) s/p left partial knee arthroplasty. The hospitalist team is consulted for medical management. Patient endorsing Left knee pain 3/10 on numerical pain scale. No other complaints at this time. Coumadin resumed at normal dosing today. Patient cleared for discharge by ortho with follow up. - Review of Systems Constitutional: No Symptoms Eyes: No Symptoms Ears, Nose, & Throat: No Symptoms Respiratory: No Symptoms Cardiac: No Symptoms Abdominal/Gastrointestinal: No Symptoms Genitourinary Symptoms: No Symptoms Musculoskeletal: Joint Pain (left knee 3/10) Skin: No Symptoms Neurological: Other (surgical incision of left knee covered with dressing) Psychological: No Symptoms Endocrine: No Symptoms Objective Exam General Appearance: no apparent distress Neurologic Exam: alert, oriented x 3, cooperative Skin Exam: normal color Eye Exam: PERRL Ears, Nose, Throat Exam: normal ENT inspection Neck Exam: normal inspection Respiratory Exam: normal breath sounds, lungs clear Cardiovascular Exam: regular rate/rhythm, normal heart sounds Gastrointestinal/Abdomen Exam: soft, normal bowel sounds Extremity Exam: other (Left knee with surgical incision covered with dressing) Back Exam: normal inspection Objective Data Vital Signs: Vital Signs - 24 hr Temp Pulse Resp BP Pulse Ox 03/17/24 08:09 97.6 F 76 16 113/78 95 03/17/24 06:54 71 18 95 03/17/24 04:22 97.7 F 72 17 99/62 95 03/17/24 00:13 97.6 F 70 18 110/67 96 03/16/24 20:06 97.8 F 70 17 100/27 96 03/16/24 18:55 73 18 96 03/16/24 15:52 80 16 97 Pain Assessment - Last Documented Pain Intensity [left knee] 6 Pain Intensity 4 Pain Scale Used 0-10 Pain Scale Intake and Output: Intake & Output 03/15/24 03/16/24 03/17/24 03/18/24 11:59 11:59 11:59 11:59 Weight 78.6 kg Lab Results: Lab Results-Last 24 Hours 03/16/24 03/16/24 03/17/24 Range/Units 16:08 16:08 04:37 WBC 5.6 9.6 H (4.23-9.07) x10^3/uL RBC 3.31 L 3.23 L (4.63-6.08) x10^6/uL Hgb 11.1 L 10.8 L (13.7-17.5) g/dL Hct 33.2 L 32.7 L (40.1-51.0) % MCV 100.3 H 101.2 H (79.0-92.2) fL MCH 33.5 H 33.4 H (25.7-32.2) pg MCHC 33.4 33.0 (32.3-36.5) g/dL RDW 14.5 H 14.6 H (11.6-14.4) % Plt Count 206 192 (163-337) x10^3/uL MPV 9.6 10.4 (9.4-12.4) fL Gran % 93.4 H 89.8 H (34.0-67.9) % Immature Gran % (Auto) 0.4 0.4 (0.001-0.429) % Nucleat RBC Rel Count 0.0 0.0 (0.00-0.2) % Eos # (Auto) 0 L 0 L (0.04-0.54) x10^3/uL Immature Gran # (Auto) 0.02 0.04 H (0.001-0.031) x10^3u/L Absolute Lymphs (auto) 0.30 L 0.43 L (1.32-3.57) x10^3/uL Absolute Monos (auto) 0.04 L 0.50 (0.30-0.82) x10^3/uL Absolute Nucleated RBC 0.00 0.00 (0.00-0.012) x10^3u/L Lymphocytes % 5.3 L 4.5 L (21.8-53.1) % Monocytes % 0.7 L 5.2 L (5.3-12.2) % Eosinophils % 0.0 L 0.0 L (0.8-7.0) % Basophils % 0.2 0.1 L (0.2-1.2) % Absolute Granulocytes 5.27 8.58 H (1.78-5.38) x10^3/uL Basophils # 0.01 0.01 (0.01-0.08) x10^3/uL PT (9.4-12.5) SECONDS INR (0.8-3.0) Sodium 138 (135-145) mmol/L Potassium 4.3 (3.5-5.1) mmol/L Chloride 105 (98-107) mmol/L Carbon Dioxide 25 (22-30) mmol/L Anion Gap 13.2 (5-15) MEQ/L BUN 22 H (9-20) mg/dL Creatinine 1.12 (0.66-1.25) mg/dL Estimated GFR 72.5 ML/MIN Glucose 136 H (74-106) mg/dL Calcium 9.0 (8.4-10.2) mg/dL Total Bilirubin 0.70 (0.2-1.3) mg/dL AST 35 (17-59) U/L ALT 23 (0-50) U/L Alkaline Phosphatase 78 (38-126) U/L Serum Total Protein 6.9 (6.3-8.2) g/dL Albumin 3.8 (3.5-5.0) g/dL Slides for Path Review YES YES 03/17/24 03/17/24 Range/Units 04:37 04:37 WBC (4.23-9.07) x10^3/uL RBC (4.63-6.08) x10^6/uL Hgb (13.7-17.5) g/dL Hct (40.1-51.0) % MCV (79.0-92.2) fL MCH (25.7-32.2) pg MCHC (32.3-36.5) g/dL RDW (11.6-14.4) % Plt Count (163-337) x10^3/uL MPV (9.4-12.4) fL Gran % (34.0-67.9) % Immature Gran % (Auto) (0.001-0.429) % Nucleat RBC Rel Count (0.00-0.2) % Eos # (Auto) (0.04-0.54) x10^3/uL Immature Gran # (Auto) (0.001-0.031) x10^3u/L Absolute Lymphs (auto) (1.32-3.57) x10^3/uL Absolute Monos (auto) (0.30-0.82) x10^3/uL Absolute Nucleated RBC (0.00-0.012) x10^3u/L Lymphocytes % (21.8-53.1) % Monocytes % (5.3-12.2) % Eosinophils % (0.8-7.0) % Basophils % (0.2-1.2) % Absolute Granulocytes (1.78-5.38) x10^3/uL Basophils # (0.01-0.08) x10^3/uL PT 12.4 (9.4-12.5) SECONDS INR 1.15 (0.8-3.0) Sodium 138 (135-145) mmol/L Potassium 3.7 (3.5-5.1) mmol/L Chloride 103 (98-107) mmol/L Carbon Dioxide 26 (22-30) mmol/L Anion Gap 11.9 (5-15) MEQ/L BUN 24 H (9-20) mg/dL Creatinine 1.21 (0.66-1.25) mg/dL Estimated GFR 66.0 ML/MIN Glucose 148 H (74-106) mg/dL Calcium 8.6 (8.4-10.2) mg/dL Total Bilirubin (0.2-1.3) mg/dL AST (17-59) U/L ALT (0-50) U/L Alkaline Phosphatase (38-126) U/L Serum Total Protein (6.3-8.2) g/dL Albumin (3.5-5.0) g/dL Slides for Path Review Radiology Exams: Radiology Procedures Category Date Time Status KNEE (1 OR 2 VIEW) Routine Exams 03/16/24 13:47 Completed Assessment/Plan (1) Afib Current Visit: Yes Status: Acute Assessment & Plan: -HR controlled -Hold Warfarin for now, daily INR 03/17/24: -resume coumadin Code(s): I48.91 - UNSPECIFIED ATRIAL FIBRILLATION (2) History of arthroplasty of left knee Current Visit: Yes Status: Acute Assessment & Plan: -PODS #1 - Dr. Pelletier following -Pain management/weight bearing status/dressing changes per ortho -Patient to D/c today Code(s): Z96.652 - PRESENCE OF LEFT ARTIFICIAL KNEE JOINT (3) HTN (hypertension) Current Visit: Yes Status: Acute Assessment & Plan: -Stable, resume home meds Code(s): I10 - ESSENTIAL (PRIMARY) HYPERTENSION (4) CHF (congestive heart failure) Current Visit: No Status: Acute Assessment & Plan: -Does not appear to be in exacerbation -Echo reviewed from 02/20/23 - EF at 45% IMPRESSION: 1) MILD TO MODERATE ASYMMETRIC LEFT VENTRICULAR HYPERTROPHY WITHOUT EVIDENCE OF ANY SIGNIFICANT LEFT VENTRICULAR OUTFLOW TRACT OBSTRUCTION. 2) APICAL HYPOKINESIA WITH OVERALL MILD TO MODERATE LEFT VENTRICULAR SYSTOLIC DYSFUNCTION. 3) PACEMAKER ARTIFACT IN RIGHT ATRIUM AND RIGHT VENTRICLE. 4) SMALL PERICARDIAL EFFUSION. 5) MILD TO MODERATE MITRAL REGURGITATION. 6) MILD TRICUSPID REGURGITATION. 7) TRACE AORTIC INSUFFICIENCY. -Continue home medications -Follow with Angie OP Code(s): I50.9 - HEART FAILURE, UNSPECIFIED (5) COPD (chronic obstructive pulmonary disease) Current Visit: No Status: Acute Assessment & Plan: -On RA -baseline with 2L at Q -RT eval -Supplemental oxygen with goal spo2 >90% -NEBs prn VTE: Warfarin Dispo: today Code Status: Full Code(s): I48.91 - UNSPECIFIED ATRIAL FIBRILLATION (2) History of arthroplasty of left knee Current Visit: Yes Status: Acute Code(s): Z96.652 - PRESENCE OF LEFT ARTIFICIAL KNEE JOINT (3) HTN (hypertension) Current Visit: Yes Status: Acute Code(s): I10 - ESSENTIAL (PRIMARY) HYPERTENSION (4) CHF (congestive heart failure) Current Visit: No Status: Acute Code(s): I50.9 - HEART FAILURE, UNSPECIFIED (5) COPD (chronic obstructive pulmonary disease) Current Visit: No Status: Acute
[2024-03-17 12:16] VITALS: BP 105/59; PULSE 70; TEMP 97.8; O2SAT 93
--- NOTE | 2024-03-18 07:49 | DS ---
DATE OF ADMISSION: 03/16/2024. DATE OF DISCHARGE: 03/17/2024. DETAILS OF PATIENT HOSPITAL COURSE: The patient was admitted to the hospital on 03/16/2024, at which time he underwent an [place] milli replacement arthroplasty of the left knee. Patient had a very uneventful postoperative course. He was admitted for postoperative IV antibiotics and postoperative physical therapy, as well as to make sure that his pain was well controlled prior to being discharged home. Patient progressed very nicely, was deemed stable and ready for discharge home today, 03/17/2024. Hemoglobin is stable at 11.1 with a hematocrit of 33.2. Patient is stable and independent utilizing a walker. His wound is clean, dry, well approximated without erythema or induration. Aquacel dressing is in place. He has no calf or thigh pain. His active range of motion is -5 to 80 degrees of flexion and he is able to perform straight leg raise. Patient will be discharged to home at this time on all of his home medications that he was taking prior to admission. In addition, a prescription for [place] 5/325, #20, 1 or 2 q.4 h. p.r.n. pain was called to the patient's pharmacy. Patient will follow up in the office in 2 weeks for recheck evaluation with x-ray.
[2024-03-19] MEDS ORDERED: Coumadin 3 MG PO SCH (18:00)
== END 2024-03-17 12:25 | disposition home or self-care (01) ==
LOC: SDC 07:53 → MED SURG 15:00 → UNDOADMOB 15:02 → MED SURG 15:02 → SDC 03-17 12:25
PROVIDERS: ATTEND Orthopaedic Surgery
DX: M17.12 Unilateral primary osteoarthritis, left knee (principal); I48.91 Unspecified atrial fibrillation; I25.10 Atherosclerotic heart disease of native coronary artery without angina pectoris; I11.0 Hypertensive heart disease with heart failure; I50.9 Heart failure, unspecified; J44.9 Chronic obstructive pulmonary disease, unspecified; Z79.01 Long term (current) use of anticoagulants; Z79.899 Other long term (current) drug therapy
CPT/HCPCS: 27446; 36415; 64447; 73560; 80048; 80053; 85025; 85610; 94760; C1713; C1776; J0690; J1170; J2250; J2270; J2371; J2405; J2704; J3010; J3370; A9270-GY

== ENCOUNTER 2024-03-27 13:03 | Emergency (ER) | payer MEDICARE ==
[2024-03-27 13:22] VITALS: TEMP 97.4; O2SAT 98
[2024-03-27 13:33] VITALS: BP 116/80; PULSE 70; RESP 20
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
== END 2024-03-27 13:46 | disposition home or self-care (01) ==
LOC: ED 13:03
DX: Z48.01 Encounter for change or removal of surgical wound dressing (principal); E78.5 Hyperlipidemia, unspecified; I10 Essential (primary) hypertension; Z79.899 Other long term (current) drug therapy
CPT/HCPCS: 99281

== ENCOUNTER 2025-03-06 16:16 | Emergency (ER) | payer MEDICARE, OTHER ==
[2025-03-06 16:32] VITALS: BP 151/95; PULSE 82; RESP 18; TEMP 97; O2SAT 99
[2025-03-06] MEDS ORDERED: TORAdol 30 mg Injection ONE (16:44)
[2025-03-06] MEDS ORDERED: BENADRYL 50 MG/ML ONE (16:44)
[2025-03-06] MEDS: TORAdol 30 mg Injection IM ONE (16:45)
[2025-03-06] MEDS: BENADRYL 50 MG/ML IM ONE (16:45)
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
== END 2025-03-06 17:06 | disposition home or self-care (01) ==
LOC: ED 16:16
DX: M17.11 Unilateral primary osteoarthritis, right knee (principal); M25.561 Pain in right knee; I10 Essential (primary) hypertension; Z79.899 Other long term (current) drug therapy